=== PATIENT | male | born 1960 | race Caucasian/White ===

== ENCOUNTER → 2018-12-04 10:52 | Outpatient (CLI) | payer MEDICARE, SELFPAY ==
--- NOTE | 2018-12-04 10:56 | MR_ITS ---
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 FINDINGS: No midline shift, mass effect, or intracranial hemorrhage is apparent. There is a gyriform area of intense increased diffusion signal in the left parietal lobe with a smaller area of peripheral gyriform increased diffusion signal in the left occipital lobe. These areas are consistent with areas of acute cortical infarction. There are scattered periventricular and subcortical T2 white matter hyperintensities consistent with ischemic gliotic change from microvascular disease. The cerebellopontine angle, cerebellum, and brainstem have an unremarkable appearance. The pituitary, optic chiasm, corpus callosum, and craniocervical junction have an unremarkable appearance. No mastoid effusion or sinus air-fluid level. 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 Multiple attempts made to contact the referring physician but unsuccessful. Dictated by: Zhao Champagne MD 12/04/2018 14:03 Electronically signed by Zhao Champagne MD in [place] 12/04/2018 14:03
== END ==
PROVIDERS: PCP Internal Medicine Adolescent Medicine; Visit Provider Internal Medicine Adolescent Medicine
DX: R20.2 Paresthesia of skin (principal)
CPT/HCPCS: 70551

== ENCOUNTER 2021-10-31 17:23 | Observation (INO) | payer MEDICARE, SELFPAY ==
[2021-10-31] VITALS (8 sets, daily range): BP systolic 87–133; BP diastolic 64–85; PULSE 87–106; RESP 18–21; TEMP 36.7–36.9; O2SAT 94–98; BMI 32.5; BMI 32.6
--- NOTE | 2021-10-31 17:33 | ECG_ITS ---
APPROVED REPORT Exam: Resting ECG HR:107 bpm ECG Measurements Heart Rate 107 AXES WY 175 P 38 QRSd 181 QRS -21 QT 370 T 114 QTc 432 Conclusion SINUS TACHYCARDIA INDETERMINATE AXIS INTRAVENTRICULAR CONDUCTION DELAY [130+ ms QRS DURATION] ABNORMAL ECG UNCONFIRMED REPORT Electronically signed by : Rusty Estrada MD 11/02/2021 21:30:05
--- NOTE | 2021-10-31 17:44 | PC.NURSE ---
ALLY RICK at bedside.
--- NOTE | 2021-10-31 18:12 | XR_ITS ---
PROCEDURE INFORMATION: Exam: XR Chest Exam date and time: 10/31/21 06:28 PM Age: 61 years old Clinical indication: Pain; Right-sided; Additional info: Right shoulder pain, acs history TECHNIQUE: Imaging protocol: Radiologic exam of the chest. Views: 1 view. COMPARISON: CR CXR1 CHEST-PORTABLE 10/16/15 05:58 AM FINDINGS: Lungs: Unremarkable. No consolidation. Pleural spaces: Unremarkable. No pleural effusion. No pneumothorax. Heart/Mediastinum: Moderate cardiomegaly. Bones/joints: Unremarkable. IMPRESSION: Moderate cardiomegaly.
--- NOTE | 2021-10-31 18:14 | HMH.EDGENADL ---
ED Disposition Clinical Impression: Acute exacerbation of CHF (congestive heart failure) Qualifiers: Heart failure type: unspecified Qualified Code(s): I50.9 - Heart failure, unspecified Disposition: Admitted As Inpatient Condition on Discharge: Good Referrals: Rusty Estrada MD [Primary Care Provider] - - Critical Care Critical Care Time: No Attestation: On 10/31/21, the high probability of a clinically significant, sudden or life threatening deterioration of the following system(s) required my full and direct attention, intervention and personal management. The time I documented below is in addition to time spent performing reported procedures but includes the following listed in this critical care notation. Medical Decision Making - [place] Inquiry Pt receiving controlled substance: No Vital Signs: 10/31/21 17:25 10/31/21 17:47 10/31/21 18:16 Temperature 98.5 F Temperature Source Oral Pulse Rate 98 H 90 Pulse Rate [Left Radial] 106 H Respiratory Rate 18 21 Blood Pressure 133/64 118/72 Blood Pressure [Right Arm] 132/85 Blood Pressure Mean 92 81 Blood Pressure Mean [Right Arm] 100 Blood Pressure Source [Right Arm] Automatic Cuff Blood Pressure Position [Right Arm] Sitting 02 Sat by Pulse Oximetry 96 95 95 Oxygen Delivery Method Room Air 10/31/21 18:48 Temperature Temperature Source Pulse Rate 88 Pulse Rate [Left Radial] Respiratory Rate 19 Blood Pressure 101/79 L Blood Pressure [Right Arm] Blood Pressure Mean 84 Blood Pressure Mean [Right Arm] Blood Pressure Source [Right Arm] Blood Pressure Position [Right Arm] 02 Sat by Pulse Oximetry 95 Oxygen Delivery Method - Lab Data Lab Results 10/31/21 18:35: WBC 10.8, RBC 5.02, Hgb 16.4, Hct 49.9, MCV 99.5 H, MCH 32.6 H, MCHC 32.7, RDW 15.6, Plt Count 254, MPV 8.9, Neut % (Auto) 74.4, Lymph % (Auto) 16.3, Rankin % (Auto) 7.4, Eos % (Auto) 0.8, Baso % (Auto) 1.0, Neut # (Auto) 8.0 H, Lymph # (Auto) 1.8, Rankin # (Auto) 0.8, Eos # (Auto) 0.1, Baso # (Auto) 0.1 10/31/21 18:35: Sodium 134 L, Potassium 3.3 L, Chloride 98, Carbon Dioxide 25, Anion Gap 14.3, BUN 18, Creatinine 1.20, Estimated Creat Clear 91, Estimated GFR 62, Est GFR ( Amer) 74, Glucose 125 H, Calcium 9.4, Total Bilirubin 3.0 H, AST 35, ALT 34, Alkaline Phosphatase 100, Troponin I 0.04 H, NT-Pro-B Natriuret Pep 2860 H, Total Protein 7.7, Albumin 4.3, Globulin 3.4 H, Albumin/Globulin Ratio 1.3 10/31/21 19:04: SARS-CoV-2 (PCR) Not detected, Influenza A Untype (PCR) Not detected, Influenza Type B (PCR) Not detected 10/31/21 19:24: Troponin I 0.04 H Result diagrams: 10/31/21 18:35 10/31/21 18:35 Orders (Tests/Meds): ED MEDICATIONS Generic Name Dose Route Start Last Admin Trade Name Freq PRN Reason Stop Dose Admin Apixaban 5 mg 10/31/21 21:00 Apixaban 5mg Tablet PO 11/30/21 20:59 BID NICOLAS Ticagrelor 90 mg 11/01/21 09:00 Ticagrelor 90mg Tablet PO 12/01/21 08:59 DAILY NICOLAS Discontinued Medications Generic Name Dose Route Start Last Admin Trade Name Freq PRN Reason Stop Dose Admin Acetaminophen 500 mg 10/31/21 18:37 10/31/21 18:55 Acetaminophen 500mg Tab PO 10/31/21 18:38 Not Given ONCE ONE Hydrocodone Bitart/Acetaminophen 1 tab 10/31/21 18:36 10/31/21 18:55 Hydrocodone/Apap 5/325 Mg Tablet PO 10/31/21 18:37 Not Given ONCE ONE Diazepam 2.5 mg 10/31/21 18:12 10/31/21 18:40 Diazepam 5mg Tablet PO 10/31/21 18:13 2.5 mg ONCE ONE Administration Furosemide 60 mg 10/31/21 19:10 10/31/21 19:23 Furosemide 20 Mg/2 Ml Vial IV 10/31/21 19:11 60 mg ONCE ONE Administration Magnesium Sulfate 2 gm in 50 mls @ 50 mls/hr 10/31/21 18:12 10/31/21 18:40 Magnesium Sulfate 2gm/50ml Premix IV 10/31/21 19:11 50 mls/hr ONCE ONE Administration Potassium Chloride 60 meq 10/31/21 19:10 10/31/21 19:23 Potassium Chloride 20meq Tab PO 10/31/21 19:11 60 meq ONCE ONE Administration ORDER
[2021-10-31 18:50] LABS: Alanine Aminotransferase 34 U/L (12-78); Albumin Level 4.3 g/dl (3.5-5.0); Albumin/Globulin Ratio 1.3 (1.1-1.8); Alkaline Phosphatase 100 U/L (38-126); Anion Gap 14.3 mEq/L (5-15); Aspartate Amino Transferase 35 U/L (17-59); Blood Urea Nitrogen 18 mg/dl (9-20); Calcium 9.4 mg/dl (8.4-10.2); Carbon Dioxide 25 mmol/L (22.0-30.0); Chloride 98 mmol/L (98-107); Creatinine Clearance Estimated 91 mL/min (50-200); Estimated Glomerular Filt Rate 62 ml/min (>60); GFR (African American) 74 ML/MIN (>60); Globulin 3.4 g/dL (1.3-3.2); Glucose 125 mg/dl (74-100); Potassium 3.3 mmoL/L (3.5-5.1); Sodium 134 mmol/L (136-145); Total Protein,Serum 7.7 g/dl (6.3-8.2)
[2021-10-31 18:57] LABS: Basophils # 0.1 K/mm3 (0-0.2); Eosinophils # 0.1 K/mm3 (0.0-0.4); Eosinophils % 0.8 % (0.1-12.0); Hematocrit 49.9 % (42.0-52.0); Hemoglobin 16.4 g/dL (14.1-18.0); Lymphocytes # 1.8 K/mm3 (0.7-4.5); Lymphocytes % 16.3 % (10-50); Mean Corpuscular HGB Conc 32.7 g/dL (31.8-35.4); Mean Corpuscular Hemoglobin 32.6 pg (27.0-31.2); Mean Corpuscular Volume 99.5 fl (80-94); Mean Platelet Volume 8.9 fl (7.4-10.4); Monocytes # 0.8 K/mm3 (0.1-1.0); Monocytes % 7.4 % (1.7-9.3); Neutrophils % 74.4 % (37.0-80.0); Platelet Count 254 K/mm3 (142-424); Red Blood Count 5.02 M/mm3 (4.60-6.20); Red Cell Distribution Width 15.6 % (11.5-17.5); White Blood Count 10.8 K/mm3 (4.8-10.8)
[2021-10-31 19:02] LABS: NT Pro Brain Natriuretic Pep. 2860 pg/mL (0-125); Troponin I 0.04 ng/ml (0.00-0.034)
[2021-10-31 19:12] LABS: Coronavirus 19, PCR Not Detected (NotDetected); Influenza A, PCR Not Detected (NotDetected); Influenza B, PCR Not Detected (NotDetected)
[2021-10-31 19:52] LABS: Troponin I 0.04 ng/ml (0.00-0.034)
--- NOTE | 2021-10-31 21:07 | PC.NURSE ---
PT ARRIVED TO FLOOR [facility] W/C FROM ED @ 2106
[2021-11-01] VITALS: BP 110/74; PULSE 80; PULSE 89; RESP 20; TEMP 36.9; O2SAT 93
[2021-11-01 00:53] LABS: Troponin I 0.05 ng/ml (0.00-0.034)
[2021-11-01 04:00] VITALS: BP 91/54; PULSE 85; PULSE 90; RESP 20; TEMP 36.6; O2SAT 94
--- NOTE | 2021-11-01 04:23 | PC.NURSE ---
Pt has not slept at all this shift. He states that he has this problem when he is in the hospital. C/O anxiety upon arrival to floor. notified. New orders received and carried out. VSS. Pt has not c/o any soa. Remains on RA. He is sinus with BBB on telemetry with occasional PVCs. Pt has used urinal or ambulated to BR. Total urine output is 365 ml thus far. Call light within reach. Family at bedside.
[2021-11-01 04:29] VITALS: BMI 34.7
[2021-11-01 06:23] LABS: Anion Gap 13.6 mEq/L (5-15); Blood Urea Nitrogen 19 mg/dl (9-20); Calcium 9.4 mg/dl (8.4-10.2); Carbon Dioxide 24 mmol/L (22.0-30.0); Chloride 100 mmol/L (98-107); Creatinine Clearance Estimated 85 mL/min (50-200); Estimated Glomerular Filt Rate 56 ml/min (>60); GFR (African American) 68 ML/MIN (>60); Glucose 90 mg/dl (74-100); Potassium 3.6 mmoL/L (3.5-5.1); Sodium 134 mmol/L (136-145)
[2021-11-01 06:31] LABS: NT Pro Brain Natriuretic Pep. 2930 pg/mL (0-125)
--- NOTE | 2021-11-01 07:09 | PC.NURSE ---
Critical lab values reported to MD this shift.
--- NOTE | 2021-11-01 07:40 | PC.NURSE ---
As I was getting report on patient it was noted on telemetry that he had a 10 beat run of vtach. Yamil Paris, RN and myself checked on patient. He denied any complaints, was asymptomatic. VS were 107/66, 83 (HR), 17 (R), 95 RA.
[2021-11-01 08:00] VITALS: BP 107/66; PULSE 80; PULSE 83; RESP 17; TEMP 36.7; O2SAT 95
--- NOTE | 2021-11-01 08:20 | PC.NURSE ---
notified md at bedside that patient had one 10 beat run of vtach this morning, pt was asymptomatic on assessment
--- NOTE | 2021-11-01 08:52 | HMH.HPDC ---
General - General Admission date:: 10/31/21 Discharge date: 11/01/21 *Admission Date: 10/31/21 *Chief complaint: Anxiety/dyspnea/arm twitching *History of present illness: 61-year-old male with history of CHF, chronic atrial and ventricular dysrhythmias and chronic anxiety disorder. He has been on Xanax 3 times daily for many years, and has had problems in the past with increasing his dose on his own which we have talked about multiple times in the office. He is following with [facility] and its been recommended to them to get a pacemaker and AICD box placed. He is extremely nervous about this and is yet to make the decision about whether or not to go forward but because of his nerves about this issue he accelerated his dose of Xanax and ran out 3 days ago and knew that he was unable to get early refills from my office. As a result his anxiety has accelerated over the past couple days and his normal tremor and arm paresthesia on the right side that he has had for several months has accelerated. Also became somewhat dyspneic and came to the emergency department. In the ER he was found to be nervous but hemodynamically stable. Had a bit of fluid overload and elevated BNP and admitted overnight for observation and further evaluation. [facility] History I have reviewed the patient's past medical history: Yes Medical History: Reports:: Hyperlipidemia, Hypertension Denies:: Diabetes Mellitus Type 1, Diabetes Mellitus Type 2 *Have you ever received a pneumonia vaccine?: Yes *Have you received a flu vaccine this season?: No Other Surgeries: Yes: Cardiac Catheterization - *Social History Smoking Status: Former smoker Tobacco Type: e-cigarettes # Packs/Day (cigarettes): 0 Alcohol Intake: never *Occupational Status:: disabled *Travel in the last 8 weeks: None Family Hx:: Cancer, Coronary Artery Disease, Diabetes, Heart Attack, Hyperlipidemia, Hypertension, Stroke Review of Systems - Review of Systems Review of systems:: pertinent systems reviewed and negative unless documented below Exam Vital signs and Labs for Last 24 Hours: Temp Pulse Resp BP Pulse Ox 98.0 F 83 17 107/66 L 95 11/01/21 08:00 11/01/21 08:00 11/01/21 08:00 11/01/21 08:00 11/01/21 08:00 Laboratory Results - last 24 hr 10/31/21 18:35: WBC 10.8, RBC 5.02, Hgb 16.4, Hct 49.9, MCV 99.5 H, MCH 32.6 H, MCHC 32.7, RDW 15.6, Plt Count 254, MPV 8.9, Neut % (Auto) 74.4, Lymph % (Auto) 16.3, Hardeman % (Auto) 7.4, Eos % (Auto) 0.8, Baso % (Auto) 1.0, Neut # (Auto) 8.0 H, Lymph # (Auto) 1.8, Hardeman # (Auto) 0.8, Eos # (Auto) 0.1, Baso # (Auto) 0.1 10/31/21 18:35: Sodium 134 L, Potassium 3.3 L, Chloride 98, Carbon Dioxide 25, Anion Gap 14.3, BUN 18, Creatinine 1.20, Estimated Creat Clear 91, Estimated GFR 62, Est GFR ( Amer) 74, Glucose 125 H, Calcium 9.4, Total Bilirubin 3.0 H, AST 35, ALT 34, Alkaline Phosphatase 100, Troponin I 0.04 H, NT-Pro-B Natriuret Pep 2860 H, Total Protein 7.7, Albumin 4.3, Globulin 3.4 H, Albumin/Globulin Ratio 1.3 10/31/21 19:04: SARS-CoV-2 (PCR) Not detected, Influenza A Untype (PCR) Not detected, Influenza Type B (PCR) Not detected 10/31/21 19:24: Troponin I 0.04 H 11/01/21 00:20: Troponin I 0.05 H 11/01/21 05:15: Sodium 134 L, Potassium 3.6, Chloride 100, Carbon Dioxide 24, Anion Gap 13.6, BUN 19, Creatinine 1.30 H, Estimated Creat Clear 85, Estimated GFR 56 L, Est GFR ( Amer) 68, Glucose 90 D, Calcium 9.4, NT-Pro-B Natriuret Pep 2930 H I & O for Last 24 hours: Intake & Output 10/29/21 10/30/21 10/31/21 11/01/21 11:59 11:59 11:59 11:59 Intake Total 360 / 360 Output Total 365 / 365 Balance -5 / -5 Weight 221 lb - Constitutional no acute distress, obese - *Routine HEENT Exam Head: Present: normocephalic Eye: Present: EOMI, PERRL ENT: Present: mucous membranes moist - *Routine Neck Exam Present: supple. Absent: lymphadenopathy - *Routine Respiratory Exam Present: CTA bilaterally - *Routine C
--- NOTE | 2021-11-02 14:43 | CARE MANAGER ---
Called and spoke with patient r/t post discharge status. 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 He forgot to mention to Dr. Estrada that he has a sinus infection . I explained to the patient that if he thought he needed to be seen prior to his scheduled f/u appt on 11/08, that he should call the office and see about getting into see MD earlier. Patient has no complaints or concerns at this time.
== END 2021-11-01 10:45 | disposition home or self-care (01) ==
LOC: ER 20:01 → 2ND 20:12
PROVIDERS: Admitting Provider Internal Medicine Adolescent Medicine; Emergency Provider Emergency Medicine; PCP Internal Medicine Adolescent Medicine; Visit Provider Internal Medicine Adolescent Medicine
DX: I50.9 Heart failure, unspecified (principal); Z79.01 Long term (current) use of anticoagulants; I11.0 Hypertensive heart disease with heart failure; Z79.899 Other long term (current) drug therapy; F17.200 Nicotine dependence, unspecified, uncomplicated; E78.5 Hyperlipidemia, unspecified; I82.5 Chronic embolism and thrombosis of deep veins of lower extremity; Z20.822 Contact with and (suspected) exposure to COVID-19
CPT/HCPCS: G0378; 36415; 71045; 80048; 80053; 83880; 84484; 85025; 93005; 93306; 99285; C9803; J3475; Q9957; U0003; U0005

== ENCOUNTER 2022-02-22 16:01 | Inpatient (IN) | payer MEDICARE, SELFPAY ==
[2022-02-22] VITALS (7 sets, daily range): BP systolic 127–141; BP diastolic 94–99; PULSE 69–111; RESP 16–20; TEMP 36.6–36.7; O2SAT 90–98; BMI 34.0; BMI 33.9
--- NOTE | 2022-02-22 16:00 | ECG_ITS ---
APPROVED REPORT Exam: Resting ECG HR:100 bpm ECG Measurements Heart Rate 100 AXES TN 181 P 12 QRSd 183 QRS -49 QT 443 T 92 QTc 500 Conclusion SINUS TACHYCARDIA WITH OCCASIONAL VENTRICULAR PREMATURE COMPLEXES LEFT ATRIAL ENLARGEMENT [-0.15mV P-WAVE IN V1/V2] LEFT AXIS DEVIATION [QRS AXIS < -30] INTRAVENTRICULAR CONDUCTION DELAY [130+ ms QRS DURATION] ABNORMAL ECG UNCONFIRMED REPORT Electronically signed by : Rusty Estrada MD 02/22/2022 19:52:18
--- NOTE | 2022-02-22 16:13 | XR_ITS ---
PROCEDURE INFORMATION: Exam: XR Chest Exam date and time: 02/22/2022 4:38 PM Age: 61 years old Clinical indication: Shortness of breath; Sternal or substernal pain; Additional info: SOA, chest pain TECHNIQUE: Imaging protocol: Radiologic exam of the chest. Views: 1 view. COMPARISON: CR XR CHEST PORTABLE 10/31/2021 6:28 PM FINDINGS: Lungs: Pulmonary vascular congestion. Added opacity at the right lung base may represent atelectasis or pneumonia. Pleural spaces: Unremarkable. No pleural effusion. No pneumothorax. Heart/Mediastinum: Cardiomegaly. Bones/joints: Unremarkable. IMPRESSION: 1. Cardiomegaly and pulmonary vascular congestion. 2. Possible superimposed right lung base atelectasis versus pneumonia.
[2022-02-22 16:33] LABS: Coronavirus 19, PCR Not Detected (NotDetected); Influenza A, PCR Not Detected (NotDetected); Influenza B, PCR Not Detected (NotDetected)
[2022-02-22 16:37] LABS: Basophils # 0.1 K/mm3 (0-0.2); Basophils % 0.9 % (0.1-2.0); Eosinophils # 0.1 K/mm3 (0.0-0.4); Eosinophils % 0.6 % (0.1-12.0); Hematocrit 51.8 % (42.0-52.0); Hemoglobin 16.8 g/dL (14.1-18.0); Lymphocytes # 1.7 K/mm3 (0.7-4.5); Lymphocytes % 19.1 % (10-50); Mean Corpuscular HGB Conc 32.4 g/dL (31.8-35.4); Mean Corpuscular Hemoglobin 32.2 pg (27.0-31.2); Mean Corpuscular Volume 99.4 fl (80-94); Mean Platelet Volume 9.4 fl (7.4-10.4); Monocytes # 0.6 K/mm3 (0.1-1.0); Monocytes % 6.5 % (1.7-9.3); Neutrophils # 6.6 K/mm3 (1.8-7.8); Neutrophils % 72.8 % (37.0-80.0); Platelet Count 237 K/mm3 (142-424); Red Blood Count 5.21 M/mm3 (4.60-6.20); Red Cell Distribution Width 15.8 % (11.5-17.5)
[2022-02-22 16:41] LABS: Alanine Aminotransferase 40 U/L (12-78); Albumin Level 4.4 g/dl (3.5-5.0); Alkaline Phosphatase 107 U/L (38-126); Anion Gap 18.5 mEq/L (5-15); Aspartate Amino Transferase 38 U/L (17-59); Bilirubin,Direct 1.2 mg/dl (0.0-0.4); Bilirubin,Indirect 2.8 mg/dL (0.0-0.9); Bilirubin,Unconjugated 2.8 mg/dL (0.0-1.1); Blood Urea Nitrogen 16 mg/dl (9-20); Carbon Dioxide 25 mmol/L (22.0-30.0); Chloride 99 mmol/L (98-107); Creatinine Clearance Estimated 57 mL/min (50-200); Estimated Glomerular Filt Rate 34 ml/min (>60); GFR (African American) 41 ML/MIN (>60); Glucose 215 mg/dl (74-100); Sodium 140 mmol/L (136-145); Total Protein,Serum 7.6 g/dl (6.3-8.2)
--- NOTE | 2022-02-22 16:41 | PC.NURSE ---
pt on 3.5L per NC at this time r/t SaO2 83% on RA ALLY RICK notified
[2022-02-22 16:47] LABS: Lactic Acid 3.6 mmol/L (0.7-2.1)
[2022-02-22 16:53] LABS: Troponin I 0.05 ng/ml (0.00-0.034)
[2022-02-22 16:55] LABS: Potassium 2.5 mmoL/L (3.5-5.1)
--- NOTE | 2022-02-22 17:07 | PC.NURSE ---
Pt is sitting up on ED stretcher and states no needs at this time. Family at BS also report no needs. Pt used urinal, UA sent to lab but there is no order in system by MD at this time
--- NOTE | 2022-02-22 17:34 | PC.NURSE ---
ER MD at speaking with patient regarding POC
--- NOTE | 2022-02-22 17:58 | HMH.EDGENADL ---
Discharge Plan Disposition Patient Disposition: Admitted As Inpatient Condition: Fair Clinical Impressions Clinical Impression: Acute exacerbation of CHF (congestive heart failure), Generalized anxiety disorder, Community acquired pneumonia, Hyperbilirubinemia, Acute respiratory failure with hypoxia Discharge ED Provider: Dhaval Tian General Adult HPI General Chief complaint: Shortness of Breath/Dyspnea Stated complaint: CP Time Seen by Provider: 02/22/22 18:00 Mode of Arrival: Ambulatory Source of Information: Patient Limitations: No Limitations Description of Symptoms (Recalled from ER Triage Doc. by RN): Pt reports SOA that began yesterday and has had intermittent chest pain today. Pt denies chest pain at this time. Pt reports HOLLOWAY with any activity. Pt reports has hx of cardiac stents and COPD. Pt reports has also been anxious r/t being out of xanax for 2 days. Pt skin on face is jaundiced in appearance. History of Present Illness HPI narrative: History obtained from patient and . His states he has not been well for about 3 weeks. He has declined more over the past week. He is extremely weak, spending most of his time in bed. No appetite not eating much at all. Very nauseated. He complains of shortness of breath. He has a cough producing yellow sputum. He states that he did not take his Lasix yesterday, but took it today and has been urinating a lot today. Has required 2 urinals thus far in the emergency department. His also states that he is on Xanax [address] Estrada has been trying to wean it and he used to be on 3 pills a day, now is on Monday, but takes it more than prescribed and has run out. He is requesting a dose of Xanax. He has a history of coronary artery disease. His says the last time he had a heart attack in 2019 his heart stopped. He has had [address] Porter in 2 more at [facility]. He wore a LifeVest for 2 years. It was recommended that he have an AICD, but thus far he has declined and has not followed up. He has not seen a pnp in about a year. Related Data Home Medications Medication Instructions Recorded Confirmed albuterol sulfate 90 mcg/actuation 8.5 gm inhalation QID COPD 10/31/21 02/22/22 aerosol inhaler fluticasone furoate 200 200 mcg inhalation DAILY COPD 10/31/21 02/22/22 mcg-vilanterol 25 mcg/dose inhalation powder furosemide 40 mg tablet 40 mg PO DIRECTED Heart failure 10/31/21 02/22/22 lisinopril 5 mg tablet 5 mg PO DAILY Hypertension 10/31/21 02/22/22 metoprolol succinate 100 mg 100 mg PO DAILY Hypertension 10/31/21 02/22/22 tablet,extended release 24 hr pantoprazole 40 mg tablet,delayed 40 mg PO DAILY GERD 10/31/21 02/22/22 release clopidogrel 75 mg tablet 75 mg PO DAILY heart 02/22/22 02/22/22 Previous Rx's Medication Instructions Recorded alprazolam 0.5 mg tablet 0.5 mg PO TIDP PRN Anxiety #90 tabs 11/01/21 Allergies Allergy/AdvReac Type Severity Reaction Status Date / Time No Known Allergies Allergy Unverified 02/28/17 15:17 [facility] Disclaimer: The information contained in this section may have been updated after the patient was seen, as this information can be updated by other users. Social History Smoking Status: Current every day smoker tobacco type: e-cigarettes alcohol intake: never current occupational status: disabled Travel in the last 8 weeks: None ROS Obtained: Yes Systems reviewed as appropriate & no additional complaints except as documented Constitutional Constitutional: Denies fever(s), Denies headache(s), Reports poor appetite and Reports weakness ENT Ears, Nose, Mouth, and Throat: Denies headache(s), Denies nasal discharge and Denies sore throat Cardiovascular Cardiovascular: Denies chest pain and Reports dyspnea on exertion Respiratory Respiratory: Reports shortness of breath, Reports cough, Reports dyspnea on exertion and Reports cough with sputu
--- NOTE | 2022-02-22 18:07 | PC.NURSE ---
ALLY RICK at for patient eval
--- NOTE | 2022-02-22 18:23 | PC.NURSE ---
ALLY RICK at
[2022-02-22 18:33] LABS: NT Pro Brain Natriuretic Pep. 12100 pg/mL (0-125)
--- NOTE | 2022-02-22 18:35 | PC.NURSE ---
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 cormier
--- NOTE | 2022-02-22 18:37 | PC.NURSE ---
ALLY RICK speaking with Dr. Estrada
--- NOTE | 2022-02-22 18:47 | PC.NURSE ---
notified milk house worker of admission
--- NOTE | 2022-02-22 19:26 | PC.NURSE ---
report given to scottrn nikko,rn and maxrn
[2022-02-22 20:15] LABS: Troponin I 0.07 ng/ml (0.00-0.034)
[2022-02-22 20:26] LABS: Reflex Lactic Add Lactic Reflex
--- NOTE | 2022-02-22 20:43 | PC.NURSE ---
PT ARRIVED TO FLOOR VIA WHEELCHAIR AT THIS TIME
[2022-02-22 21:07] LABS: Lactic Acid Follow Up (RFLX 1) 3.2 mmol/L (0.7-2.1)
[2022-02-22 22:50] LABS: Reflex Lactic (2 hrs) Add Lactic Reflex
[2022-02-22 23:34] LABS: Lactic Acid Follow up (RFLX 2) 2.2 mmol/L (0.7-2.1)
[2022-02-23] VITALS (10 sets, daily range): BP systolic 89–125; BP diastolic 54–80; PULSE 55–103; RESP 18–20; TEMP 36.3–36.6; O2SAT 88–97; BMI 33.8
--- NOTE | 2022-02-23 04:13 | PC.NURSE ---
Pt is a 61 year old male admitted with hyperkalemia, chf, pneumonia. Pt has been A/O X 4, is at bedside. Pt's lungs has wheezes exp and ins on right side throughout. Resp labored with exertion Pt wearing 2L 02 per NC Pt has a 20G in LAC saline locked patent. Pt has been educated on plan of care and medications. Encouraged to report any needs to nurse. Bed locked in low position, side rails up x 2, call light in reach.
--- NOTE | 2022-02-23 07:00 | CA_ITS ---
APPROVED REPORT EXAM: Comprehensive 2D, Doppler, and color-flow Echocardiogram Delinquency Prevention Officer: Dawn Olivo CRT Ht: 5 ft 9 in Wt: 230lbs BSA: 2.19 BP: 130/96 mmHg Indications: Congestive Heart Failure, COPD, CAD, 5 stents, wore lifevest 2 years, recommended AICD pt refused, EF 20-20% echo 11/01/21 Echo Enhancing Agent Indication: Endocardial border delineation Agent(s) / Amount(s) Used: Definity 2 cc 2D Dimensions LVOT 2.01 cm (M/F) 1.5-2.5 M-Mode Dimensions RVDd 3.08 cm (0.9-2.6) LA Diam 4.51 cm (1.9-4.0) LVDd 8.11 cm (3.5-5.7) Ao Diam 3.88 cm (2.0-3.7) LVDs 7.67 cm (3.5-5.7) IVSd 1.52 cm (0.6-1.1) PWd 1.03 cm (0.6-1.1) EF (Teich) 11.70% FS 5.40% EDV (Teich) 355.30 mL ESV (Teich) 313.70 mL LV Diastology E Decel Time 160.00 (160-240 msec) E/A Ratio 2.64 Mitral Valve MV E Max Killian. 72.00 (40-130 cm/s) MV A Velocity 27.00 (40-130 cm/s) E/A Ratio 2.64 MV Decel. Time 160.00 (160-240 ms) MV PHT 47.00 ms Pulmonary Valve PV Peak Velocity 118.00 (50-150 cm/s) Tricuspid Valve TR P. Velocity 99.00 cm/s Left Ventricle Technically difficult study because of the patient factors and poor acoustic windows, Definity contrast was utilized to delineate the endocardial surfaces, left atrium is mildly enlarged, left ventricle is dilated, there is severe reduced left ventricular systolic function, estimated ejection fraction 15%, left ventricle is globally hypokinetic, there is no left ventricular thrombus seen, diastolic parameters are inconclusive, Doppler evidence of low cardiac output state. Right Ventricle Right atrium and right ventricle are mildly enlarged with normal contractility. Aortic Valve Aortic valve is minimally thickened and calcified there is no aortic stenosis or aortic insufficiency. Mitral Valve Mitral valve leaflets are minimally thickened, there is mild mitral regurgitation. Tricuspid Valve Tricuspid valve is grossly normal, there is mild tricuspid regurgitation, tricuspid regurgitation jet velocity is inadequate for calculation of the right ventricular systolic pressure. Pulmonic Valve Pulmonic valve is poorly visualized. Great Vessels Aortic root is normal size. Inferior vena cava is poorly visualized. Pericardium No significant pericardial effusion noted. Conclusion 1. Technically very difficult study, Definity contrast was utilized to delineate the endocardial surfaces. 2. Dilated left ventricle, severely this left ventricular systolic function, estimated ejection fraction 15%, left ventricle is globally hypokinetic, diastolic parameters are inconclusive, Doppler evidence of low cardiac output state. 3. Mildly enlarged right ventricle with normal contractility. 4. Mild mitral and tricuspid regurgitation. 5. No significant pericardial effusion noted. 6. Inferior vena cava is poorly visualized. Electronically signed by : Tutu Iraheta MD 02/23/2022 20:13:01
[2022-02-23 07:08] LABS: Chloride 102 mmol/L (98-107); Sodium 139 mmol/L (136-145)
[2022-02-23 07:11] LABS: Anion Gap 12.8 mEq/L (5-15); Blood Urea Nitrogen 13 mg/dl (9-20); Carbon Dioxide 27 mmol/L (22.0-30.0); Creatinine Clearance Estimated 67 mL/min (50-200); Estimated Glomerular Filt Rate 41 ml/min (>60); GFR (African American) 50 ML/MIN (>60)
[2022-02-23 07:12] LABS: Calcium 9.3 mg/dl (8.4-10.2); Glucose 96 mg/dl (74-100)
[2022-02-23 07:21] LABS: Potassium 2.8 mmoL/L (3.5-5.1)
--- NOTE | 2022-02-23 08:13 | HMH.PHAINT1 ---
Pharmacy Intervention Comments: Medication reconciliation completed via chart review and external fill history. -Shanon Desai, PharmD Candidate 2022
--- NOTE | 2022-02-23 08:19 | PC.NURSE ---
reported critical potassium to dr cormier
--- NOTE | 2022-02-23 08:31 | EXP.HP ---
History of Present Illness *Admission Date: 02/22/22 *Reason for visit:: Weakness/fatigue *History of present illness: HPI narrative: History obtained from patient and .? His states he has not been well for about 3 weeks.? He has declined more over the past week.? He is extremely weak, spending most of his time in bed.? No appetite not eating much at all.? Very nauseated.? He complains of shortness of breath.? He has a cough producing yellow sputum.? He states that he did not take his Lasix yesterday, but took it today and has been urinating a lot today.? Has required 2 urinals thus far in the emergency department. His also states that he is on Xanax [address] Estrada has been trying to wean it and he used to be on 3 pills a day, now is on Monday, but takes it more than prescribed and has run out.? He is requesting a dose of Xanax. He has a history of coronary artery disease.? His says the last time he had a heart attack in 2019 his heart stopped.? He has had [address] Porter in 2 more at [facility].? He wore a LifeVest for 2 years.? It was recommended that he have an AICD, but thus far he has declined and has not followed up.? He has not seen a harp maker in about a year. Above note per emergency department physician. Agree with history obtained per Dr. Tian. Patient's notes that he has been ill over the past 3 to 4 weeks. She also notes that he cannot handle Xanax only twice daily. He gets wild. Patient notes that he missed a dose of his diuretics last Monday because he was feeling poorly. He notes that when he took his Lasix in the ER he had a brisk diuresis. ER physician confirmed this when I was talking to him about the admission and noted the aid filled up 3 urinals in the ER. He feels much better this morning. Is able to sit up on the side of the bed and carry on a conversation. He feels much stronger. [facility] Disclaimer: The information contained in this section may have been updated after the patient was seen, as this information can be updated by other users. Medical History (Updated 02/23/22 @ 08:36 by Rusty Estrada MD) Congestive heart failure History of heart attack Family History (Updated 02/22/22 @ 21:44 by Karen Brooks, DELIA) Family history of myocardial infarction Social History Smoking Status: Current every day smoker tobacco type: e-cigarettes alcohol intake: never current occupational status: disabled Travel in the last 8 weeks: None Review of Systems Review of Systems Review of systems:: pertinent systems reviewed and negative unless documented below Constitutional Constitutional: Denies headache(s) and Reports weakness ENT Ears, Nose, Mouth, and Throat: Denies headache(s) *Musculoskeletal Musculoskeletal: Denies numbness *Neurologic Neurologic: Denies headache(s), Denies numbness and Reports weakness Meds Home Medications and Allergies Home Medications Medication Instructions Recorded Confirmed Type albuterol sulfate 90 mcg/actuation 8.5 gm inhalation QID COPD 10/31/21 02/22/22 History aerosol inhaler furosemide 40 mg tablet 40 mg PO DIRECTED Heart failure 10/31/21 02/22/22 History metoprolol succinate 100 mg 100 mg PO DAILY Hypertension 10/31/21 02/22/22 History tablet,extended release 24 hr pantoprazole 40 mg tablet,delayed 40 mg PO DAILY GERD 10/31/21 02/22/22 History release clopidogrel 75 mg tablet 75 mg PO DAILY heart 02/22/22 02/22/22 History alprazolam 1 mg tablet 1 mg PO BIDP PRN Anxiety 02/23/22 02/23/22 History fluticasone furoate 200 1 inh inhalation BID COPD 02/23/22 02/23/22 History mcg-vilanterol 25 mcg/dose inhalation powder (Breo Ellipta) lisinopril 10 mg tablet 10 mg PO DAILY Hypertension 02/23/22 02/23/22 History New Prescriptions to Start Prescriptions: Allergies Allergy/AdvReac Type Severity Reaction Status
--- NOTE | 2022-02-23 10:44 | HMH.PTEV ---
Physical Therapy Evaluation Rehab PT IP Evaluation Start: 02/23/22 08:06 Freq: ONCE Status: Active Protocol: Document 02/23/22 09:00 SAMANTHA (Rec: 02/23/22 10:44 SAMANTHA [id number]) Subjective/History History History 61 yowm adm to [facility] with PNA and CHF. He reports he lives with spouse, 2-3 steps to enter the home, he is generally independent with all mobility and ADLs without AD. Subjective Subjective Currently no c/o . Rehab PT IP Eval Objective Appearance Patient Behavior Appropriate Patient Orientation Person,Place,Time Difficulty following instructions none Speech Pattern Clear Ambulation Patient Able to Ambulate Yes Ambulation Observation IP General Gait Pattern Observation No Deviations/Normal Ambulation Distance (feet) 40 Ambulation Assistive Device None Ambulation Ability Independent Balance Ability to Arise Able, uses arms to help Sitting Balance Steady, safe Standing Balance Narrow stance w/o support Dynamic Sitting Balance Ability Good Dynamic Standing Balance Ability Good Transfers Bed Transfer Ability Independent Chair Transfer Ability Independent Sit to Stand Bed Transfer Ability Independent Sit to Stand Chair Transfer Ability Independent ROM All Extremities PT ROM Status WFL MMT All Extremities PT MMT WFL Abnormal MMT Grade except 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 Rehab PT IP prob,goals,plan Problems Date of Evaluation: 02/23/22 Discharge Plan PT Discharge Plan Pt is currently independent with all mobility which is his baseline. He has no inpatient therapy needs at this time and is appropriate to return home once medically stable. G -code Required No Eval Complexity Eval Charge Codes 03786 - Moderate Complexity PHYSICIAN CERTIFICATION: I certify the specified therapy services for Mele Ortiz are required, authorized, and reviewed every 30 days.
--- NOTE | 2022-02-23 16:36 | PC.NURSE ---
Addendum entered by Noe Zuluaga RN 02/23/22 18:58: Correction Liver ultrasound, not biopsy for tomorrow am. CMP also ordered for am. Original Note: Dr. Estrada ordered liver biopsy, stated ok to do in am. Educated pt on need to be npo at 0000. 40 iv lasix iv x 1 and 60 meq of k given po, per mar. No c/o at this time. VSS at this time. CB in reach and at bedside.
[2022-02-24] VITALS: BP 93/66; PULSE 85; RESP 16; TEMP 37; O2SAT 92
--- NOTE | 2022-02-24 02:59 | PC.NURSE ---
Pt has been resting in bed most of shift with spouse at bedside. Pt has been A/O X 4. Rep even and non labored this morning, Lungs have some rhonchi on right side, Shortness of air on exertion. Pt has deneid any pain, IV is patent and SL.Pt educated on current Plan of care. Bed locked in low position, side rails up x 2, call light in reach.
[2022-02-24 04:00] VITALS: BP 99/73; PULSE 86; RESP 18; TEMP 36.8; O2SAT 95
[2022-02-24 05:00] VITALS: BMI 34.0
[2022-02-24 05:59] VITALS: PULSE 89; PULSE 90; O2SAT 91
[2022-02-24 06:34] LABS: Chloride 103 mmol/L (98-107); Potassium 3.6 mmoL/L (3.5-5.1); Sodium 140 mmol/L (136-145)
[2022-02-24 06:37] LABS: Alanine Aminotransferase 25 U/L (12-78); Albumin Level 3.9 g/dl (3.5-5.0); Albumin/Globulin Ratio 1.4 (1.1-1.8); Alkaline Phosphatase 88 U/L (38-126); Anion Gap 17.6 mEq/L (5-15); Aspartate Amino Transferase 31 U/L (17-59); Bilirubin,Total 2.5 mg/dl (0.2-1.3); Blood Urea Nitrogen 20 mg/dl (9-20); Carbon Dioxide 23 mmol/L (22.0-30.0); Creatinine Clearance Estimated 63 mL/min (50-200); Estimated Glomerular Filt Rate 39 ml/min (>60); GFR (African American) 47 ML/MIN (>60); Globulin 2.8 g/dL (1.3-3.2); Total Protein,Serum 6.7 g/dl (6.3-8.2)
[2022-02-24 06:38] LABS: Calcium 9.6 mg/dl (8.4-10.2); Glucose 103 mg/dl (74-100)
[2022-02-24 08:00] VITALS: BP 103/65; PULSE 100; RESP 20; TEMP 36.6; O2SAT 91
--- NOTE | 2022-02-24 08:26 | EXP.DC.SUM ---
General Admission date:: 02/22/22 Discharge date: 02/24/22 HPI HPI HPI: HPI narrative: History obtained from patient and .? His states he has not been well for about 3 weeks.? He has declined more over the past week.? He is extremely weak, spending most of his time in bed.? No appetite not eating much at all.? Very nauseated.? He complains of shortness of breath.? He has a cough producing yellow sputum.? He states that he did not take his Lasix yesterday, but took it today and has been urinating a lot today.? Has required 2 urinals thus far in the emergency department. His also states that he is on Xanax [address] Estrada has been trying to wean it and he used to be on 3 pills a day, now is on Monday, but takes it more than prescribed and has run out.? He is requesting a dose of Xanax. He has a history of coronary artery disease.? His says the last time he had a heart attack in 2019 his heart stopped.? He has had [address] Porter in 2 more at [facility].? He wore a LifeVest for 2 years.? It was recommended that he have an AICD, but thus far he has declined and has not followed up.? He has not seen a loan review officer in about a year. Above note per emergency department physician. Agree with history obtained per Dr. Tian. Patient's notes that he has been ill over the past 3 to 4 weeks. She also notes that he cannot handle Xanax only twice daily. He gets wild. Patient notes that he missed a dose of his diuretics last Monday because he was feeling poorly. He notes that when he took his Lasix in the ER he had a brisk diuresis. ER physician confirmed this when I was talking to him about the admission and noted the aid filled up 3 urinals in the ER. He feels much better this morning. Is able to sit up on the side of the bed and carry on a conversation. He feels much stronger. Hospital Course Hospital Course Hospital Course: Patient was admitted, placed on IV antibiotics for his COPD/exacerbation/community-acquired pneumonia. Improved nicely from a congestion perspective. His elevated bilirubin was noted to be an isolated phenomenon and improved with diuresis. Liver ultrasound is pending today. I will follow-up the results of the liver ultrasound with him in the office in 4 days. Patient's jaundice is resolved. He has had elevated bilirubin in the past and I wonder about Tram syndrome. CHF is still a major problem for this patient. Echocardiogram revealed persistent severe CHF with ejection fraction of 20%. As noted previously patient has been evaluated by [facility] cardiomyopathy service and has been offered AICD placement but he is declined. He is now rethinking this and wishes to be reevaluated at . We will initiate this reevaluation. I have instructed patient that he must be compliant with his home Lasix therapy on a daily basis. I think he has been missing doses intermittently. Have also added spironolactone, and then we will try to get him in to as soon as possible. He has severe anxiety disorder. He has been taking more Xanax than prescribed, I had previously tried to wean him down to twice daily, given his end-stage cardiomyopathy and limited life expectancy I am not sure this is worth the process over the next several months that it would take to wean him off given his over 30 years of benzodiazepine dependence. We will continue 3 times daily Xanax. Patient's room air saturation was 85%. He will be discharged on 2 L nasal cannula given his stage IV CHF. I will see him in the office on 02/28. I ordered BMP and a CBC before this visit to evaluate his electrolytes on the new diuretic regimen. Exam Data for Last 24 hours Vital signs and Labs for Last 24 Hours: Temp Pulse Resp BP Pulse Ox 97.9 F 100 H 20 103/65 L 91 L 02/24/22 08:00 02/24/22 08:00 02/24/22 08:00 02/24/22 08:00 02/24/22 08:00 Laboratory Results - last 24 hr 02/24/22
--- NOTE | 2022-02-24 08:36 | US_ITS ---
FINAL REPORT CLINICAL HISTORY: elevated bilirubin FINDINGS: Sonographic images of the right upper quadrant were obtained. There is a small right pleural effusion. The pancreas is partially obscured. The liver is fatty infiltrated. There are gallstones with gallbladder wall thickening. There is no evidence of biliary ductal dilatation.The common duct measures 3 mm. Limited images of the right kidney are unremarkable. IMPRESSION: Gallstones with gallbladder wall thickening, cholecystitis not excluded. Fatty infiltration of the liver. Small right pleural effusion. Reviewed, Interpreted and Dictated by German Tam III, MD Transcribed by Aida Caal Authenticated and [facility]
--- NOTE | 2022-02-24 09:07 | PC.NURSE ---
Patients oxygen was 85 room air at rest
[2022-02-24 09:28] VITALS: PULSE 73; PULSE 76
--- NOTE | 2022-02-24 09:36 | PC.NURSE ---
verified with that he did want patient going home on 10mg lisinopril
--- NOTE | 2022-02-24 09:44 | CARE MANAGER ---
This patient will need home oxygen, patient and family chose [facility].Order and demographics faxed.
--- NOTE | 2022-02-24 09:48 | HMH.PHAINT1 ---
Pharmacy Intervention Comments: DISCHARGE MEDICATION COUNSELING PROVIDED. DISCUSSED CHANGE ON THE XANAX FROM TWICE DAILY NEEDED TO THREE TIMES DAILY NEEDED. START SHORT-COURSE LEVAQUIN (ANTIBIOTIC, DAILY, RECOMMEND TAKING WITH FOOD, GI UPSET/N/V/D POSSIBLE, RARE RISK OF TENDON RUPTURE). START SPIRONOLACTONE (POTASSIUM SPARING DIURETIC, WATCH FOR SIGNS OF INCREASED POTASSIUM LEVEL INCLUDING IRREGULAR HEARTBEAT, DIZZINESS, MUSCLE PAIN/WEAKNESS, MAY CAUSE BREAST/CHEST PAIN). PATIENT VERBALIZED NO QUESTIONS AT THIS TIME.
--- NOTE | 2022-02-25 13:21 | CARE MANAGER ---
Patient states he is feeling better. he picked up his medications and is aware of MD appointment next week. He denies questions or concerns. DELIA Holley
== END 2022-02-24 11:20 | disposition home or self-care (01) | DRG 193 ==
LOC: ER 18:51 → 2ND 19:11
PROVIDERS: Admitting Provider Internal Medicine Adolescent Medicine; Emergency Provider Emergency Medicine; PCP Internal Medicine Adolescent Medicine; Visit Provider Internal Medicine Adolescent Medicine
DX: J18.9 Pneumonia, unspecified organism (principal); I50.23 Acute on chronic systolic (congestive) heart failure; J96.01 Acute respiratory failure with hypoxia; J44.1 Chronic obstructive pulmonary disease with (acute) exacerbation; J44.0 Chronic obstructive pulmonary disease with (acute) lower respiratory infection; I50.9 Heart failure, unspecified; F41.1 Generalized anxiety disorder; Z95.5 Presence of coronary angioplasty implant and graft; I25.2 Old myocardial infarction; E87.6 Hypokalemia; Z91.14 Patient's other noncompliance with medication regimen; I25.10 Atherosclerotic heart disease of native coronary artery without angina pectoris; F17.290 Nicotine dependence, other tobacco product, uncomplicated; E80.6 Other disorders of bilirubin metabolism
CPT/HCPCS: 36415; 71045; 76705; 80048; 80053; 80076; 83605; 83880; 84484; 85025; 87040; 93005; 93306; 94640; 97162; 99285; C9803; J0456; J0696; Q9957; U0003; U0005

== ENCOUNTER → 2022-02-28 08:26 | Outpatient (CLI) | payer MEDICARE, SELFPAY ==
[2022-02-28 08:59] LABS: Basophils # 0.1 K/mm3 (0-0.2); Basophils % 1.8 % (0.1-2.0); Eosinophils # 0.1 K/mm3 (0.0-0.4); Eosinophils % 0.8 % (0.1-12.0); Hematocrit 48.4 % (42.0-52.0); Hemoglobin 15.6 g/dL (14.1-18.0); Lymphocytes # 1.5 K/mm3 (0.7-4.5); Lymphocytes % 19.3 % (10-50); Mean Corpuscular HGB Conc 32.1 g/dL (31.8-35.4); Mean Corpuscular Hemoglobin 31.8 pg (27.0-31.2); Mean Platelet Volume 9.9 fl (7.4-10.4); Monocytes # 0.4 K/mm3 (0.1-1.0); Monocytes % 5.9 % (1.7-9.3); Neutrophils # 5.4 K/mm3 (1.8-7.8); Platelet Count 257 K/mm3 (142-424); Red Blood Count 4.89 M/mm3 (4.60-6.20); White Blood Count 7.5 K/mm3 (4.8-10.8)
[2022-02-28 10:06] LABS: Anion Gap 15.8 mEq/L (5-15); Blood Urea Nitrogen 17 mg/dl (9-20); Calcium 9.9 mg/dl (8.4-10.2); Carbon Dioxide 26 mmol/L (22.0-30.0); Chloride 100 mmol/L (98-107); Estimated Glomerular Filt Rate 41 ml/min (>60); GFR (African American) 50 ML/MIN (>60); Glucose 137 mg/dl (74-100); Potassium 3.8 mmoL/L (3.5-5.1); Sodium 138 mmol/L (136-145)
== END ==
PROVIDERS: PCP Internal Medicine Adolescent Medicine; Visit Provider Internal Medicine Adolescent Medicine
DX: I50.20 Unspecified systolic (congestive) heart failure (principal)
CPT/HCPCS: 36415; 80048; 85025

== ENCOUNTER 2022-03-12 14:06 | Inpatient (IN) | payer MEDICARE, SELFPAY ==
[2022-03-12] VITALS (12 sets, daily range): BP systolic 82–112; BP diastolic 50–91; PULSE 74–139; RESP 17–22; TEMP 35.9–37; O2SAT 91–96; BMI 33.2; BMI 34.7
--- NOTE | 2022-03-12 14:18 | ECG_ITS ---
APPROVED REPORT Exam: Resting ECG HR:139 bpm ECG Measurements Heart Rate 139 AXES QRSd 186 QRS 259 QT 343 T 142 QTc 424 Conclusion ATRIAL FLUTTER/TACHYCARDIA WITH RAPID VENTRICULAR RESPONSE INDETERMINATE AXIS INTRAVENTRICULAR CONDUCTION DELAY [130+ ms QRS DURATION] ABNORMAL ECG UNCONFIRMED REPORT Electronically signed by : Rusty Estrada MD 03/15/2022 17:00:46
--- NOTE | 2022-03-12 14:30 | XR_ITS ---
PROCEDURE INFORMATION: Exam: XR Chest Exam date and time: 03/12/2022 2:45 PM Age: 61 years old Clinical indication: Shortness of breath; Additional info: Sob/cp TECHNIQUE: Imaging protocol: Radiologic exam of the chest. Views: 1 view. COMPARISON: CR XR CHEST PORTABLE 02/22/2022 4:38 PM FINDINGS: Lungs: Persistent region of opacification in the right mid lower lung. Findings unchanged and may reflect changes of atelectasis versus consolidation. Pleural spaces: Unremarkable. No pleural effusion. No pneumothorax. Heart/Mediastinum: Exaggeration of the cardiac silhouette secondary to technique and positioning. Bones/joints: Unremarkable. IMPRESSION: Persistent region of opacification in the right mid lower lung. Findings unchanged and may reflect changes of atelectasis versus consolidation.
--- NOTE | 2022-03-12 14:32 | HMH.EDGENADL ---
Discharge Plan Disposition Patient Disposition: Admitted As Inpatient Prescriptions Prescriptions: No Action albuterol sulfate 8.5 GM HFA aerosol inhaler 8.5 gm IH QID pantoprazole 40 MG tablet,delayed release (DR/EC) 40 mg PO DAILY furosemide 40 MG tablet 40 mg PO DAILY Label Comments: takes every other day metoprolol succinate 100 MG tablet extended release 24 hr 100 mg PO DAILY clopidogrel 75 mg tablet 75 mg PO DAILY lisinopril 10 mg tablet 10 mg PO DAILY fluticasone furoate-vilanterol [Breo Ellipta] 200-25 mcg/dose blister with device 1 inh INHALATION BID spironolactone 50 mg tablet 50 mg PO BID Qty: 60 0RF levofloxacin [levofloxacin] 500 mg tablet 500 mg PO DAILY Qty: 7 0RF alprazolam 1 mg tablet 1 mg PO TID PRN (Reason: Anxiety) Qty: 90 0RF Referrals Follow up/Referrals: Rusty Estrada MD [Primary Care Provider] - See instructions Clinical Impressions Clinical Impression: Community acquired pneumonia, Hyperbilirubinemia, Hypokalemia, Atrial flutter, Non-ST elevation (NSTEMI) myocardial infarction Discharge ED Provider: Waylon [facility] HPI General Chief complaint: Shortness of Breath/Dyspnea Stated complaint: low O2 level Time Seen by Provider: 03/12/22 14:29 History of Present Illness HPI narrative: 61-year-old male, past medical history of hypokalemia, systolic heart failure, hyperbilirubinemia, respiratory failure with hypoxia. He was recently admitted and discharged on 1215 from here after being evaluated for COPD exacerbation, community-acquired pneumonia and CHF. He was also noted to have elevated bilirubin which was thought to be isolated phenomenon that improved with diuresis. There is consideration for GilBert syndrome. Echocardiogram was completed which showed severe CHF with ejection fraction of 20% and he previously been referred for AICD placement however had declined. He was discharged with instructions to maintain compliance with diuretic regimen, he was discharged from the hospital with supplemental oxygen which he usually uses at 2.5 L/min. He presents back today with generalized fatigue, cough productive of yellowish sputum, shortness of breath. Denies nausea, vomiting, dark stools, abdominal pain, chest pain. States symptoms have progressively worsened over the past week. Related Data Home Medications Medication Instructions Recorded Confirmed albuterol sulfate 90 mcg/actuation 8.5 gm inhalation QID COPD 10/31/21 02/22/22 aerosol inhaler furosemide 40 mg tablet 40 mg PO DAILY Heart failure 10/31/21 02/23/22 metoprolol succinate 100 mg 100 mg PO DAILY Hypertension 10/31/21 02/22/22 tablet,extended release 24 hr pantoprazole 40 mg tablet,delayed 40 mg PO DAILY acid reflux 10/31/21 02/22/22 release clopidogrel 75 mg tablet 75 mg PO DAILY Heart disease 02/22/22 02/22/22 fluticasone furoate 200 1 inh inhalation BID COPD 02/23/22 02/23/22 mcg-vilanterol 25 mcg/dose inhalation powder (Breo Ellipta) lisinopril 10 mg tablet 10 mg PO DAILY Hypertension 02/23/22 02/23/22 Previous Rx's Medication Instructions Recorded alprazolam 1 mg tablet 1 mg PO TID PRN Anxiety #90 tabs 02/24/22 levofloxacin 500 mg tablet 500 mg PO DAILY #7 tabs 02/24/22 spironolactone 50 mg tablet 50 mg PO BID #60 tabs 02/24/22 Allergies Allergy/AdvReac Type Severity Reaction Status Date / Time No Known Allergies Allergy Unverified 02/28/17 15:17 [facility] Disclaimer: The information contained in this section may have been updated after the patient was seen, as this information can be updated by other users. Medical History Congestive heart failure History of heart attack Family History Other Family history of myocardial infarction Social History Smo
[2022-03-12 14:38] LABS: Coronavirus 19, PCR Not Detected (NotDetected); Influenza A, PCR Not Detected (NotDetected); Influenza B, PCR Not Detected (NotDetected)
[2022-03-12 14:53] LABS: Alanine Aminotransferase 35 U/L (12-78); Albumin Level 4.2 g/dl (3.5-5.0); Albumin/Globulin Ratio 1.4 (1.1-1.8); Alkaline Phosphatase 100 U/L (38-126); Anion Gap 15.2 mEq/L (5-15); Aspartate Amino Transferase 54 U/L (17-59); Bilirubin,Total 2.6 mg/dl (0.2-1.3); Blood Urea Nitrogen 19 mg/dl (9-20); Calcium 9.4 mg/dl (8.4-10.2); Carbon Dioxide 27 mmol/L (22.0-30.0); Chloride 100 mmol/L (98-107); Creatinine Clearance Estimated 66 mL/min (50-200); Estimated Glomerular Filt Rate 41 ml/min (>60); GFR (African American) 50 ML/MIN (>60); Glucose 111 mg/dl (74-100); Magnesium 2.1 mg/dl (1.6-2.3); Potassium 3.2 mmoL/L (3.5-5.1); Sodium 139 mmol/L (136-145); Total Protein,Serum 7.2 g/dl (6.3-8.2)
[2022-03-12 14:54] LABS: Basophils # 0.1 K/mm3 (0-0.2); Eosinophils # 0.1 K/mm3 (0.0-0.4); Eosinophils % 0.8 % (0.1-12.0); Hematocrit 48.9 % (42.0-52.0); Hemoglobin 15.7 g/dL (14.1-18.0); Lymphocytes # 1.8 K/mm3 (0.7-4.5); Lymphocytes % 21.1 % (10-50); Mean Corpuscular HGB Conc 32.1 g/dL (31.8-35.4); Mean Corpuscular Hemoglobin 31.9 pg (27.0-31.2); Mean Corpuscular Volume 99.5 fl (80-94); Mean Platelet Volume 8.9 fl (7.4-10.4); Monocytes # 0.6 K/mm3 (0.1-1.0); Monocytes % 7.1 % (1.7-9.3); Neutrophils # 5.9 K/mm3 (1.8-7.8); Platelet Count 288 K/mm3 (142-424); Red Blood Count 4.92 M/mm3 (4.60-6.20); Red Cell Distribution Width 17.3 % (11.5-17.5); White Blood Count 8.4 K/mm3 (4.8-10.8)
[2022-03-12 14:57] LABS: D-Dimer 2.32 ug/mL (0.0-0.5); Lactic Acid 2.6 mmol/L (0.7-2.1)
[2022-03-12 15:03] LABS: NT Pro Brain Natriuretic Pep. 16700 pg/mL (0-125)
[2022-03-12 15:44] LABS: Troponin I 0.13 ng/ml (0.00-0.034)
[2022-03-12 15:58] LABS: Microscopic, Urine URINE MICROSCOPIC (MICROSCOPIC)
[2022-03-12 16:00] LABS: Appearance,Urine CLEAR (Clear); Blood, Urine Negative (Negative); Color,Urine YELLOW (Yellow); Glucose,Urine (UA) Negative (Negative); Ketones,Urine Negative (Negative); Leukocyte Esterase,Urine Negative (Negative); Nitrate,Urine Negative (Negative); Protein,Urine 2+ (Negative); Specific Gravity, Urine 1.025 (1.005-1.030)
--- NOTE | 2022-03-12 16:01 | PC.NURSE ---
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
[2022-03-12 16:09] LABS: Bilirubin,Urine 1+ (Negative)
[2022-03-12 16:17] LABS: Squamous Epithelial Cell,Urine Occasional #/hpf (0-5); WBC,Urine Occasional #/hpf (0-3)
--- NOTE | 2022-03-12 16:22 | PC.NURSE ---
spoke with pharmacy who states abx ordered is not compatible with dilt drip. new iv established; 20 right wrist
--- NOTE | 2022-03-12 17:27 | PC.NURSE ---
report called to lizzy guerrier
--- NOTE | 2022-03-12 17:52 | PC.NURSE ---
Pt arrived to the floor at this time
--- NOTE | 2022-03-12 18:07 | EXP.HP ---
History of Present Illness *Admission Date: 03/12/22 *Reason for visit:: shortness of breath, weakness *History of present illness: Mr. Ortiz is a 61-year-old male with past medical history of systolic heart failure (EF 20 to 25% on echo 11/01), chronic hypoxic respiratory failure, CKD, who presented to the ER with worsening shortness of breath and fatigue for the past few weeks. Of note, he had a similar presentation 2 weeks ago. States he has not felt well since getting home. Reports mixed compliance with his diuretic regimen. Also complains of cough mildly productive for yellow sputum. Stable oxygen requirement (2.5 L). Denies fever, but states that he has been cold and requesting blankets. Denies any vomiting, melena, abdominal pain, chest pain. Has had some intermittent nausea. On initial evaluation in the ER, patient found to be in a flutter with heart rate in the 130s. Labs concerning for mild elevation in troponin, elevation in creatinine from baseline, severely elevated BNP, and low potassium. Patient's chest imaging concerning for volume overload and persistent right middle lobe atelectasis versus airspace density. Initiated on diltiazem drip in the ER with improvement in his heart rate. Medicine consulted for admission and further management. On my interview, patient appears very weak. Reports known history of heart failure, has been trying to get set up at for possible AICD. Has not been comfortable with having the device placed previously. Knows that he has severe heart failure. Alert and interactive. Cardiac history: Reports previous stent placement and intervention by Dr. Porter in [place]. Known LAD disease. Previously recommended CABG, patient declined to pursue. In need of AICD/pacemaker, has deferred for several years; previously wore a LifeVest for 2 years per 's report Echo from 02/23/2022 Conclusion 1.? Technically very difficult study, Definity contrast was utilized to delineate the endocardial surfaces. 2.? Dilated left ventricle, severely this left ventricular systolic function, estimated ejection fraction 15%, left ventricle is globally hypokinetic, diastolic parameters are inconclusive, Doppler evidence of low cardiac output state. 3.? Mildly enlarged right ventricle with normal contractility. 4.? Mild mitral and tricuspid regurgitation. 5.? No significant pericardial effusion noted. 6.? Inferior vena cava is poorly visualized. PFSH PFSH Disclaimer: The information contained in this section may have been updated after the patient was seen, as this information can be updated by other users. Medical History (Updated 03/12/22 @ 20:31 by Israel Cantu MD) Asthma Congestive heart failure COPD (chronic obstructive pulmonary disease) History of heart attack Family History Family history of myocardial infarction Social History (Updated 03/12/22 @ 20:02 by Kaylynn Warren RN) Smoking Status: Former smoker alcohol intake: never current occupational status: disabled Travel in the last 8 weeks: None Review of Systems Review of Systems Review of systems (narrative): 14 point review of systems performed, pertinent positives and negatives as per HPI *Neurologic Neurologic: Reports system reviewed and no additional complaints, except as documented Meds Home Medications and Allergies Home Medications Medication Instructions Recorded Confirmed Type albuterol sulfate 90 mcg/actuation 8.5 gm inhalation QID COPD 10/31/21 03/12/22 History aerosol inhaler furosemide 40 mg tablet 40 mg PO DAILY Heart failure 10/31/21 03/12/22 History metoprolol succinate 100 mg 100 mg PO DAILY Hypertension 10/31/21 03/12/22 History tablet,extended release 24 hr pantoprazole 40 mg tablet,delayed 40 mg PO DAILY acid reflux 10/31/21 03/12/22 History release clopidogrel 75 mg tablet 75 mg PO DAILY Heart disease 02/22/22 03/12/22 History fluticas
[2022-03-12 18:33] LABS: Reflex Lactic Add Lactic Reflex
[2022-03-12 19:11] LABS: Troponin I 0.19 ng/ml (0.00-0.034)
[2022-03-12 19:28] LABS: Lactic Acid Follow Up (RFLX 1) 3.1 mmol/L (0.7-2.1)
[2022-03-12 20:35] LABS: Reflex Lactic (2 hrs) Add Lactic Reflex
[2022-03-12 21:51] LABS: Lactic Acid Follow up (RFLX 2) 2.8 mmol/L (0.7-2.1)
[2022-03-12 22:23] LABS: Troponin I 0.25 ng/ml (0.00-0.034)
--- NOTE | 2022-03-12 22:30 | PC.NURSE ---
changed pt's sat probe, pt satting 89% on 2LNC, increased to 3LNC and sats 92%; notified RT Will that pt requested neb treatment, RT to come to bedside
--- NOTE | 2022-03-12 23:44 | P.CONPHA_ITS ---
Pharmacy Intervention Comments: HOME MEDICATION LIST VERIFIED USING LIST FROM [facility]
--- NOTE | 2022-03-12 23:44 | HMH.PHAINT1 ---
Pharmacy Intervention Comments: HOME MEDICATION LIST VERIFIED USING LIST FROM [facility]
[2022-03-13] VITALS (18 sets, daily range): BP systolic 90–131; BP diastolic 42–88; PULSE 90–140; RESP 20–24; TEMP 36.1–37.3; O2SAT 90–96; BMI 35.4
--- NOTE | 2022-03-13 | CA_ITS ---
APPROVED REPORT EXAM: Comprehensive 2D, Doppler, and color-flow Echocardiogram Data Integration Architect: Day Benitez RT(R) Ht: 5 ft 9 in Wt: 239lbs BSA: 2.23 BP: 101/77 mmHg Indications: CHF, SOB, COPD, CAD, hx OR, Aflutter Procedure After obtaining informed consent, patient underwent transesophageal echo in the [facility]. Type of Sedation : Conscious Sedation Transesophageal probe was inserted and advanced into esophagus without difficulty by Dr. Hernan Porter. Echo enhancement indication: R/O Thrombus. The ELIJAH was performed without complications. Synchronized Cardioversion attempted: Successful Throughout the procedure, the blood pressure, pulse oximetry, cardiac rhythm, and rate were monitored. The patient tolerated the procedure without adverse effects. Recovery from conscious sedation was uneventful and vital signs were stable. Atria No thrombus is visualized in the left atrium or appendage. Electronically signed by : Mario Porter MD 03/15/2022 15:30:42
--- NOTE | 2022-03-13 01:51 | ECG_ITS ---
APPROVED REPORT Exam: Resting ECG HR:159 bpm ECG Measurements Heart Rate 159 AXES QRSd 173 QRS -74 QT 305 T 109 QTc 394 Conclusion ATRIAL FIBRILLATION WITH RAPID VENTRICULAR RESPONSE WITH ABERRANT CONDUCTION OR VENTRICULAR PREMATURE COMPLEXES LEFT AXIS DEVIATION [QRS AXIS < -30] RIGHT BUNDLE BRANCH BLOCK [120+ ms QRS DURATION, UPRIGHT V1, 40+ ms S IN I/aVL/V4/V5/V6] CRITICAL TEST RESULT UNCONFIRMED REPORT Electronically signed by : Rusty Estrada MD 03/15/2022 16:57:59
--- NOTE | 2022-03-13 02:35 | PC.NURSE ---
notified tico garcía of pt's continued tachycardia after first dose metoprolol and hypotension with milrinone drip being started and that rhythm is becoming more regular and qrs is wide, TICO coming to bedside to assess pt
--- NOTE | 2022-03-13 03:00 | ECG_ITS ---
APPROVED REPORT Exam: Resting ECG HR:125 bpm ECG Measurements Heart Rate 125 AXES QRSd 178 QRS -52 QT 349 T 128 QTc 423 Conclusion ATRIAL FLUTTER/TACHYCARDIA WITH RAPID VENTRICULAR RESPONSE LEFT AXIS DEVIATION [QRS AXIS < -30] INTRAVENTRICULAR CONDUCTION DELAY [130+ ms QRS DURATION] ABNORMAL ECG UNCONFIRMED REPORT Electronically signed by : Rusty Estrada MD 03/13/2022 22:22:01
[2022-03-13 07:46] LABS: Basophils # 0.1 K/mm3 (0-0.2); Basophils % 1.3 % (0.1-2.0); Eosinophils # 0.1 K/mm3 (0.0-0.4); Eosinophils % 0.7 % (0.1-12.0); Hematocrit 46.6 % (42.0-52.0); Hemoglobin 14.9 g/dL (14.1-18.0); Lymphocytes # 1.9 K/mm3 (0.7-4.5); Lymphocytes % 24.4 % (10-50); Mean Corpuscular Hemoglobin 31.7 pg (27.0-31.2); Monocytes # 0.6 K/mm3 (0.1-1.0); Monocytes % 7.4 % (1.7-9.3); Neutrophils # 5.1 K/mm3 (1.8-7.8); Neutrophils % 66.2 % (37.0-80.0); Platelet Count 256 K/mm3 (142-424); Red Cell Distribution Width 17.4 % (11.5-17.5); White Blood Count 7.6 K/mm3 (4.8-10.8)
--- NOTE | 2022-03-13 07:50 | EXP.ACUTE.PN ---
Subjective *Date: 03/13/22 *Time: 16:55 Interval history: Patient is ill-appearing this morning. Mild dyspnea. Saturations appropriate on 3 L nasal cannula oxygen. Blood pressure this morning with systolics 90-110. Heart rate remains tachycardic in the 120-130 range. Denies nausea. Complaining of anxiety. at bedside. Attempted diuresis overnight with minimal response. Kidney function stable this morning, discussed reattempting today. Patient alert and oriented. Medical Exam Vital signs and Labs for Last 24 Hours: Vital Signs Temp Pulse Pulse Resp BP BP Pulse Ox 03/13/22 06:00 137 H 22 111/86 92 L 03/13/22 04:00 137 H 03/13/22 04:00 96.9 F L 03/13/22 00:00 113 H 03/13/22 04:00 137 H 23 103/77 L 95 03/13/22 02:00 124 H 21 91/74 L 90 L 03/13/22 00:00 97.0 F L 108 H 20 130/42 L 93 L 03/12/22 20:00 93 L 03/12/22 21:00 85 19 93/50 L 93 L 03/12/22 22:00 88 20 99/54 L 91 L 03/12/22 20:00 96.6 F L 76 17 82/52 L 96 03/12/22 18:00 76 93 L 03/12/22 18:24 97.5 F L 77 22 95/63 L 93 L 03/12/22 17:50 98.5 F 76 20 101/77 L 03/12/22 16:30 79 20 104/77 L 93 L 03/12/22 16:01 74 21 101/77 L 94 L 03/12/22 15:32 82 22 112/91 H 94 L 03/12/22 15:00 138 H 20 107/82 L 96 03/12/22 14:30 139 H 21 112/84 95 03/12/22 14:31 98.6 F 139 H 21 111/86 92 L Intake and Output 03/12/22 03/12/22 03/13/22 15:59 23:59 07:59 Intake Total 0 / 0 Output Total 450 / 450 Balance -450 / -450 Intake: Intake, Oral Amount 0 / 0 Output: Output, Urine Amount 450 / 450 Other: Number of Unmeasured Voids 0 Weight 102.058 kg 106.793 kg 108.522 kg Patient Weight 03/13/22 23:59 Weight 108.522 kg Laboratory Results - last 24 hr 03/12/22 14:21: WBC 8.4, RBC 4.92, Hgb 15.7, Hct 48.9, MCV 99.5 H, MCH 31.9 H, MCHC 32.1, RDW 17.3, Plt Count 288, MPV 8.9, Neut % (Auto) 70.0, Lymph % (Auto) 21.1, Miller % (Auto) 7.1, Eos % (Auto) 0.8, Baso % (Auto) 1.0, Neut # (Auto) 5.9, Lymph # (Auto) 1.8, Miller # (Auto) 0.6, Eos # (Auto) 0.1, Baso # (Auto) 0.1 03/12/22 14:21: D-Dimer 2.32 H 03/12/22 14:21: Sodium 139, Potassium 3.2 L, Chloride 100, Carbon Dioxide 27, Anion Gap 15.2 H, BUN 19, Creatinine 1.70 H, Estimated Creat Clear 66, Estimated GFR 41 L, Est GFR ( Amer) 50 L, Glucose 111 H, Calcium 9.4, Magnesium 2.1, Total Bilirubin 2.6 H, AST 54, ALT 35, Alkaline Phosphatase 100, Troponin I 0.13 H, NT-Pro-B Natriuret Pep 83475 H, Total Protein 7.2, Albumin 4.2, Globulin 3.0, Albumin/Globulin Ratio 1.4 03/12/22 14:21: Lactate 2.6 H 03/12/22 14:21: SARS-CoV-2 (PCR) Not detected, Influenza A Untype (PCR) Not detected, Influenza Type B (PCR) Not detected 03/12/22 14:27: Blood Type AB Positive, Antibody Screen Negative 03/12/22 15:45: Urine Color Yellow, Urine Appearance Clear, Urine pH 6.0, Ur Specific [place] 1.025, Urine Protein 2+, Urine Glucose (UA) Negative, Urine Ketones Negative, Urine Blood Negative, Urine Nitrate Negative, Urine Bilirubin 1+ A, Urine Urobilinogen 1.0, Ur Leukocyte Esterase Negative, Urine WBC Occasional, Ur Squamous Epith Cells Occasional, Hyaline Casts 3-5 03/12/22 17:30: Troponin I 0.19 H 03/12/22 19:03: Lactate 3.1 H 03/12/22 21:05: Troponin I 0.25 H 03/12/22 21:05: Lactate 2.8 H 03/13/22 07:11: WBC 7.6, RBC 4.70, Hgb 14.9, Hct 46.6, MCV 99.0 H, MCH 31.7 H, MCHC 32.0, RDW 17.4, Plt Count 256, MPV 9.0, Neut % (Auto) 66.2, Lymph % (Auto) 24.4, Miller % (Auto) 7.4, Eos % (Auto) 0.7, Baso % (Auto) 1.3, Neut # (Auto) 5.1, Lymph # (Auto) 1.9, Miller # (Auto) 0.6, Eos # (Auto) 0.1, Baso # (Auto) 0.1 I & O for Labs for Last 24 Hours: Intake & Output 03/10/22 03/11/22 03/12/22 03/13/22 23:59 23:59 23:59 23:59 Intake Total 0 / 0 Output Total 450 / 450 Balance -450 / -450 Weight 106.793 kg 108.522 kg Constitutional: Present moderate distress, obese and chronically il
[2022-03-13 07:51] LABS: Alanine Aminotransferase 203 U/L (12-78); Albumin Level 3.9 g/dl (3.5-5.0); Albumin/Globulin Ratio 1.3 (1.1-1.8); Alkaline Phosphatase 104 U/L (38-126); Anion Gap 13.8 mEq/L (5-15); Aspartate Amino Transferase 454 U/L (17-59); Bilirubin,Total 3.9 mg/dl (0.2-1.3); Blood Urea Nitrogen 23 mg/dl (9-20); Calcium 9.2 mg/dl (8.4-10.2); Carbon Dioxide 27 mmol/L (22.0-30.0); Chloride 97 mmol/L (98-107); Creatinine Clearance Estimated 66 mL/min (50-200); Estimated Glomerular Filt Rate 39 ml/min (>60); GFR (African American) 47 ML/MIN (>60); Glucose 87 mg/dl (74-100); Potassium 3.8 mmoL/L (3.5-5.1); Sodium 134 mmol/L (136-145); Total Protein,Serum 6.9 g/dl (6.3-8.2)
--- NOTE | 2022-03-13 11:42 | EXP.PHA.CONS ---
Pharmacy Consult Date: 03/13/22 Time: 11:42 Referring provider: TRINH Reason for Consult:: PHARMACY CONSULTED TO MANAGE VANCOMYCIN THERAPY Allergies Allergy/AdvReac Type Severity Reaction Status Date / Time No Known Allergies Allergy Verified 03/12/22 18:21 Home Medications Medication Instructions Recorded Confirmed Type albuterol sulfate 90 mcg/actuation 1 puff inhalation QID PRN 10/31/21 03/12/22 History aerosol inhaler Shortness Of Breath furosemide 40 mg tablet 40 mg PO DAILY Heart failure 10/31/21 03/12/22 History metoprolol succinate 100 mg 100 mg PO DAILY Hypertension 10/31/21 03/12/22 History tablet,extended release 24 hr pantoprazole 40 mg tablet,delayed 40 mg PO DAILY acid reflux 10/31/21 03/12/22 History release clopidogrel 75 mg tablet 75 mg PO DAILY Heart disease 02/22/22 03/12/22 History fluticasone furoate 200 1 inh inhalation BID COPD 02/23/22 03/12/22 History mcg-vilanterol 25 mcg/dose inhalation powder (Breo Ellipta) lisinopril 10 mg tablet 10 mg PO DAILY Hypertension 02/23/22 03/12/22 History alprazolam 1 mg tablet 1 mg PO TID PRN Anxiety #90 tabs 02/24/22 03/12/22 Rx spironolactone 50 mg tablet 50 mg PO BID DIURETIC 03/12/22 03/12/22 History New Prescriptions to Start Prescriptions: Height: 1.75 m Weight: 108.522 kg Laboratory Results:: Laboratory Results - last 24 hr 03/12/22 14:21: WBC 8.4, RBC 4.92, Hgb 15.7, Hct 48.9, MCV 99.5 H, MCH 31.9 H, MCHC 32.1, RDW 17.3, Plt Count 288, MPV 8.9, Neut % (Auto) 70.0, Lymph % (Auto) 21.1, [place] % (Auto) 7.1, Eos % (Auto) 0.8, Baso % (Auto) 1.0, Neut # (Auto) 5.9, Lymph # (Auto) 1.8, [place] # (Auto) 0.6, Eos # (Auto) 0.1, Baso # (Auto) 0.1 03/12/22 14:21: D-Dimer 2.32 H 03/12/22 14:21: Sodium 139, Potassium 3.2 L, Chloride 100, Carbon Dioxide 27, Anion Gap 15.2 H, BUN 19, Creatinine 1.70 H, Estimated Creat Clear 66, Estimated GFR 41 L, Est GFR ( Amer) 50 L, Glucose 111 H, Calcium 9.4, Magnesium 2.1, Total Bilirubin 2.6 H, AST 54, ALT 35, Alkaline Phosphatase 100, Troponin I 0.13 H, NT-Pro-B Natriuret Pep 97364 H, Total Protein 7.2, Albumin 4.2, Globulin 3.0, Albumin/Globulin Ratio 1.4 03/12/22 14:21: Lactate 2.6 H 03/12/22 14:21: SARS-CoV-2 (PCR) Not detected, Influenza A Untype (PCR) Not detected, Influenza Type B (PCR) Not detected 03/12/22 14:27: Blood Type AB Positive, Antibody Screen Negative 03/12/22 15:45: Urine Color Yellow, Urine Appearance Clear, Urine pH 6.0, Ur Specific [place] 1.025, Urine Protein 2+, Urine Glucose (UA) Negative, Urine Ketones Negative, Urine Blood Negative, Urine Nitrate Negative, Urine Bilirubin 1+ A, Urine Urobilinogen 1.0, Ur Leukocyte Esterase Negative, Urine WBC Occasional, Ur Squamous Epith Cells Occasional, Hyaline Casts 3-5 03/12/22 17:30: Troponin I 0.19 H 03/12/22 19:03: Lactate 3.1 H 03/12/22 21:05: Troponin I 0.25 H 03/12/22 21:05: Lactate 2.8 H 03/13/22 07:11: WBC 7.6, RBC 4.70, Hgb 14.9, Hct 46.6, MCV 99.0 H, MCH 31.7 H, MCHC 32.0, RDW 17.4, Plt Count 256, MPV 9.0, Neut % (Auto) 66.2, Lymph % (Auto) 24.4, [place] % (Auto) 7.4, Eos % (Auto) 0.7, Baso % (Auto) 1.3, Neut # (Auto) 5.1, Lymph # (Auto) 1.9, [place] # (Auto) 0.6, Eos # (Auto) 0.1, Baso # (Auto) 0.1 03/13/22 07:11: Sodium 134 L, Potassium 3.8, Chloride 97 L, Carbon Dioxide 27, Anion Gap 13.8, BUN 23 H, Creatinine 1.80 H, Estimated Creat Clear 66, Estimated GFR 39 L, Est GFR ( Amer) 47 L, Glucose 87 D, Calcium 9.2, Magnesium 2.0, Total Bilirubin 3.9 H, AST 454 H* D, ALT 203 H D, Alkaline Phosphatase 104, Total Protein 6.9, Albumin 3.9, Globulin 3.0, Albumin/Globulin Ratio 1.3 Medical History: Medical History (Updated 03/12/22 @ 20:31 by Israel Cantu MD) Asthma Congestive heart failure COPD (chronic obstructive pulmonary disease) History of heart attack Assessment and Plan Assessment and plan all Dx Assessment and Plan for all problems:: PT RECEIVED VANCOMYCIN 1500MG ONCE OVERNIGHT. WILL CONTINUE VANCOMYCIN 1750MG (~15MG/KG) EVERY 2
[2022-03-13 14:54] LABS: ABG Base Excess -11.3 mmol/L (-2.4-2.3); ABG HCO3 14.3 mmhg (22.0-26.0); ABG Oxygen Saturation 94 % (90-100); ABG PCO2 26.8 mmhg (35.0-45.0); ABG PH 7.35 mmol/L (7.35-7.45); ABG PO2 76.4 mmhg (80-100); ABG TCO2 15.2 mmhg (23-27)
[2022-03-13 14:56] LABS: Allen's Test Patient Unable; Oxygen 4 L NC %; Source Left Radial
--- NOTE | 2022-03-13 15:25 | SUR.OPER ---
Patient cardioverted to sinus rhythm 8033
--- NOTE | 2022-03-13 15:43 | PC.NURSE ---
1411 - notified by Dr Porter to page in aquatic life laborer and echo 1412 - mixer operator notified to page aquatic life laborer 1412 - Ana returned call 1413 - Omid returned call 1413 - Colleen returned call 1414 - notified respiratory to page echo 1428 - Day from echo returned call 1440 - Anesthesia paged per aquatic life laborer request 1441 - Nhan returned call
[2022-03-13 18:34] LABS: Chloride 94 mmol/L (98-107); Sodium 134 mmol/L (136-145)
[2022-03-13 18:35] LABS: Potassium 4.3 mmoL/L (3.5-5.1)
[2022-03-13 18:37] LABS: Ammonia 45 umol/L (9-30)
[2022-03-13 18:38] LABS: Anion Gap 24.3 mEq/L (5-15); Blood Urea Nitrogen 26 mg/dl (9-20); Carbon Dioxide 20 mmol/L (22.0-30.0); Creatinine Clearance Estimated 48 mL/min (50-200); Estimated Glomerular Filt Rate 26 ml/min (>60); GFR (African American) 32 ML/MIN (>60); Glucose 62 mg/dl (74-100)
[2022-03-13 18:59] LABS: Basophils # 0.1 K/mm3 (0-0.2); Basophils % 0.5 % (0.1-2.0); Eosinophils % 0.1 % (0.1-12.0); Hematocrit 46.4 % (42.0-52.0); Hemoglobin 14.8 g/dL (14.1-18.0); Lymphocytes # 0.9 K/mm3 (0.7-4.5); Lymphocytes % 6.8 % (10-50); Mean Corpuscular HGB Conc 31.8 g/dL (31.8-35.4); Mean Corpuscular Hemoglobin 31.8 pg (27.0-31.2); Mean Platelet Volume 9.3 fl (7.4-10.4); Monocytes # 0.8 K/mm3 (0.1-1.0); Monocytes % 5.5 % (1.7-9.3); Neutrophils # 11.9 K/mm3 (1.8-7.8); Neutrophils % 87.2 % (37.0-80.0); Platelet Count 263 K/mm3 (142-424); Red Blood Count 4.64 M/mm3 (4.60-6.20); Red Cell Distribution Width 17.4 % (11.5-17.5); White Blood Count 13.6 K/mm3 (4.8-10.8)
[2022-03-13 19:01] LABS: MANUAL DIFFERENTIAL MANUAL DIFFERENTIAL (MANUAL DIFF)
[2022-03-13 21:38] LABS: Lymphocytes % 9 % (10-50); Monocytes % 2 % (2-9); Neutrophils % 89 % (42-76); Total Cells Counted 100
[2022-03-13 21:40] LABS: Macrocytosis 1+; Platelet Estimate Normal
--- NOTE | 2022-03-13 23:00 | ECG_ITS ---
APPROVED REPORT Exam: Resting ECG HR:102 bpm ECG Measurements Heart Rate 102 AXES NV 178 P 29 QRSd 180 QRS -66 QT 397 T 114 QTc 456 Conclusion SINUS TACHYCARDIA POSSIBLE LEFT ATRIAL ENLARGEMENT [-0.1mV P-WAVE IN V1/V2] LEFT AXIS DEVIATION [QRS AXIS < -30] INTRAVENTRICULAR CONDUCTION DELAY [130+ ms QRS DURATION] ABNORMAL ECG UNCONFIRMED REPORT Electronically signed by : Rusty Estrada MD 03/14/2022 20:02:59
[2022-03-13 23:01] LABS: ABG Base Excess -8.7 mmol/L (-2.4-2.3); ABG HCO3 17.4 mmhg (22.0-26.0); ABG Oxygen Saturation 95 % (90-100); ABG PCO2 34.4 mmhg (35.0-45.0); ABG PH 7.32 mmol/L (7.35-7.45); ABG PO2 83.2 mmhg (80-100); ABG TCO2 18.5 mmhg (23-27)
[2022-03-13 23:02] LABS: Allen's Test Y; Oxygen 50 VM %; Source Right Radial
[2022-03-14] VITALS (39 sets, daily range): BP systolic 72–142; BP diastolic 47–79; PULSE 80–120; RESP 15–24; TEMP 36.5–36.9; O2SAT 86–99; BMI 35.2; BMI 34.9
--- NOTE | 2022-03-14 01:23 | CA_ITS ---
FINAL REPORT CLINICAL HISTORY: LE EDEMA,CARDIOGENIC SHOCK FINDINGS: Color Doppler, duplex Doppler and compression sonography of the bilateral lower extremities was performed. There is no evidence of deep venous thrombosis from the level of the groin to the calf. The deep veins are patent and compressible. IMPRESSION: No evidence of deep venous thrombosis bilateral lower extremities. Reviewed, Interpreted and Dictated by Jeffrey Garza MD Transcribed by Aida Caal Authenticated and [facility]
--- NOTE | 2022-03-14 05:15 | PC.NURSE ---
Pt has slept well the later part of this shift. Denies any discomfort at this time. Pt was placed on 50% venti mask early in shift after desats in upper 80s. German RICK consulted. New orders received and carried out. VS currently stable. Pt remains on Levophed gtt @ 3 mcg/min. Milrinone @ 0.2 mcg/kg/min. Amiodarone @ 0.5 mg/min. To be Discontinued @ 0940 AM. F/C draining to bedside with dark yellow to elodia urine. Sediment noted. No BM. Call light within reach. at bedside.
[2022-03-14 06:11] LABS: Basophils # 0.1 K/mm3 (0-0.2); Basophils % 0.5 % (0.1-2.0); Eosinophils % 0.2 % (0.1-12.0); Hematocrit 42.2 % (42.0-52.0); Hemoglobin 14.1 g/dL (14.1-18.0); Lymphocytes # 1.2 K/mm3 (0.7-4.5); Lymphocytes % 9.3 % (10-50); Mean Corpuscular HGB Conc 33.3 g/dL (31.8-35.4); Mean Corpuscular Hemoglobin 32.4 pg (27.0-31.2); Mean Corpuscular Volume 97.1 fl (80-94); Monocytes # 0.8 K/mm3 (0.1-1.0); Monocytes % 6.3 % (1.7-9.3); Neutrophils # 10.9 K/mm3 (1.8-7.8); Neutrophils % 83.7 % (37.0-80.0); Platelet Count 233 K/mm3 (142-424); Red Blood Count 4.34 M/mm3 (4.60-6.20); Red Cell Distribution Width 17.3 % (11.5-17.5)
[2022-03-14 07:28] LABS: Albumin Level 3.5 g/dl (3.5-5.0); Albumin/Globulin Ratio 1.3 (1.1-1.8); Alkaline Phosphatase 92 U/L (38-126); Anion Gap 16.4 mEq/L (5-15); Blood Urea Nitrogen 39 mg/dl (9-20); Calcium 8.6 mg/dl (8.4-10.2); Carbon Dioxide 25 mmol/L (22.0-30.0); Chloride 94 mmol/L (98-107); Creatinine Clearance Estimated 49 mL/min (50-200); Estimated Glomerular Filt Rate 28 ml/min (>60); GFR (African American) 33 ML/MIN (>60); Globulin 2.8 g/dL (1.3-3.2); Glucose 126 mg/dl (74-100); Magnesium 2.5 mg/dl (1.6-2.3); Potassium 4.4 mmoL/L (3.5-5.1); Sodium 131 mmol/L (136-145); Total Protein,Serum 6.3 g/dl (6.3-8.2)
[2022-03-14 07:35] LABS: Alanine Aminotransferase 1154 U/L (12-78)
[2022-03-14 07:57] LABS: Aspartate Amino Transferase 3292 U/L (17-59)
--- NOTE | 2022-03-14 10:30 | NM_ITS ---
PROCEDURE INFORMATION: Exam: NM Lung Ventilation and Perfusion Imaging Exam date and time: 03/14/2022 11:05 AM Age: 61 years old Clinical indication: Dyspnea; Additional info: Dyspnea, elevated d-dimer TECHNIQUE: Imaging protocol: Nuclear pulmonary ventilation with aerosol or gas was performed followed by perfusion. Views: Ventilation acquired with multiple projections. Perfusion acquired with multiple projections. Radiopharmaceutical: 8.00 mCi Tc-99m MAA, IV; 35.2 mCi Tc-99m DTPA, aerosol COMPARISON: CR XR CHEST PORTABLE 03/12/2022 2:45 PM FINDINGS: Ventilation: Normal. No ventilation defects. Perfusion: Normal. No perfusion defects. IMPRESSION: Normal perfusion. No evidence of pulmonary embolism.
--- NOTE | 2022-03-14 11:13 | EXP.CARD.CON ---
History of Present Illness History of Present Illness Consult date: 03/14/22 Requesting physician: Israle Cantu Consult reason: shortness of breath Chief complaint: Shortness of air and fatigue Additional Medical History:: Significant past medical history History of systolic heart failure (EF 20 to 25% on echo 11/01) Chronic hypoxic respiratory failure Chronic kidney disease Medical noncompliance V. fib arrest status post ROSC after 1 round of ACLS and 1 shock Cardiac history: Reports previous stent placement and intervention by Dr. Porter in [place].? Known LAD disease. Previously recommended CABG, patient declined to pursue. In need of AICD/pacemaker, has deferred for several years; previously wore a LifeVest for 2 years per 's report Echo from 02/23/2022 Conclusion 1.? Technically very difficult study, Definity contrast was utilized to delineate the endocardial surfaces. 2.? Dilated left ventricle, severely this left ventricular systolic function, estimated ejection fraction 15%, left ventricle is globally hypokinetic, diastolic parameters are inconclusive, Doppler evidence of low cardiac output state. 3.? Mildly enlarged right ventricle with normal contractility. 4.? Mild mitral and tricuspid regurgitation. 5.? No significant pericardial effusion noted. 6.? Inferior vena cava is poorly visualized. Further history obtained on Mr. Ortiz today.? Records obtained from [facility]. Previously presented to [facility] in 2015 with a STEMI.? Found to have 100% occlusion of his LAD.? Underwent stenting of proximal LAD.? At that time was found to have severely reduced ejection fraction of 30%.? Was discharged home on a LifeVest. Review of records from via [facility].? Last seen by cardiology at [facility] 08/17/2020 History at that time as follows: Mele Ortiz is a 60 y.o. male who presents today in the electrophysiology clinic for follow up.? He is followed for HTN, prior LA with PCI to the LAD(2015) who presented to OSH with NSTEMI, complicated by VF arrest with ROSC after one round of ACLS and one shock. Transferred to and underwent PCI with XIOMARA to cx lesion, QUALITY MANAGEMENT NURSE proximal LAD and staged PCI to RCA on 04/03/19. CMR showed LV thrombi and EF of 20%. He was initially seen as outpatient in August 2019 and wanted to think more about possible implant of ICD and wanted to follow up in 1 month, but has since been lost to follow up. He is still wearing his LifeVest. Denies any treatments in 2019 or so far in 2020, but last fall he was on his mower and didn't hear the alarm, the gel started to come out and then he was able to abort it. Treated for LV thrombus in March 2019 with Eliquis.? No thrombus noted on echo in August 2019. Documentation of multiple previous discussions for ICD placement.? Patient has deferred on having device placed previously. Appears he has been living with EF of 30% or less since at least 2015 and EF of 20% or less since March 2019. History of present illness: 61-year-old white male with above past medical history presented to emergency department with complaints of increased shortness of air and fatigue over the past few weeks. Of note, patient was recently hospitalized with same complaint a few weeks ago and was treated for CHF exacerbation. Patient has long standing history of reduced ejection fraction in the 20s and is a candidate for AICD placement, however, patient has been reluctant to get device. Reports since going home has continued to feel poorly. Upon initial evaluation in ER patient was found to be in atrial flutter with a heart rate in the 130s. Initial labs as follow: Sodium 138, potassium 3.8, anion gap 15.8, BUN 17, creatinine 1.7, and troponin of 0.13. D-dimer was also noted to be elevated. Patient could not undergo CTA due to chronic kidney disease so VQ scan was ordered and is pending. Chest x-ray showed persistent region of opacification in the right mid lower lung. Findings unchanged and may refle
--- NOTE | 2022-03-14 11:57 | XR_ITS ---
FINAL REPORT CLINICAL HISTORY: POST V.Q. COMPARISON: March 12, 2022 FINDINGS: TWO-VIEW CHEST Two views of the chest were obtained. There is severe cardiomegaly. There is pulmonary vascular congestion. The mediastinum is normal. There are small bilateral pleural effusions. There is no pneumothorax. The bony thorax is intact. IMPRESSION: Findings suggestive of mild CHF. Reviewed, Interpreted and Dictated by Jeffrey Garza MD Transcribed by Elizabeth Guy Authenticated and . [facility]
--- NOTE | 2022-03-14 14:52 | PC.NURSE ---
1431 notified Rtuh of pt 7 beat run of vtach. pt resting in bed at time of ectopy. no new orders 1440 clarified order for heparin drip. ruth states brigitte wants lovenox and plavix held. vq scan negative, heparin drip not necessary at this time. information relayed to pharmacy.
--- NOTE | 2022-03-14 15:14 | PC.NURSE ---
Addendum entered by Elysia Joshua RN 03/14/22 17:07: drip decreased to 10mcg 1630 (bp 132/78) drip decreased to 8mcg 1700 (bp 111/78) Original Note: late entry: start of shift levophed drip at 3mcg drip increased to 5mcg 1116 (bp 72/50) drip increased to 10mcg 1118 (bp 76/47) drip increased to 15mcg 1124 (bp 78/49) drip decreased to 13mcg 1315 (bp 107/69)
--- NOTE | 2022-03-14 15:45 | PC.NURSE ---
late entry; pt to radiology for VQ scan with PERSONAL LINES ADVISOR left unit at 1040 returned to unit at 1216
[2022-03-14 16:23] LABS: Albumin Level 3.7 g/dl (3.5-5.0); Albumin/Globulin Ratio 1.2 (1.1-1.8); Alkaline Phosphatase 117 U/L (38-126); Anion Gap 15.1 mEq/L (5-15); Bilirubin,Total 5.6 mg/dl (0.2-1.3); Blood Urea Nitrogen 41 mg/dl (9-20); Calcium 8.8 mg/dl (8.4-10.2); Carbon Dioxide 27 mmol/L (22.0-30.0); Chloride 94 mmol/L (98-107); Creatinine Clearance Estimated 49 mL/min (50-200); Estimated Glomerular Filt Rate 28 ml/min (>60); GFR (African American) 33 ML/MIN (>60); Globulin 3.1 g/dL (1.3-3.2); Glucose 153 mg/dl (74-100); Potassium 3.1 mmoL/L (3.5-5.1); Sodium 133 mmol/L (136-145); Total Protein,Serum 6.8 g/dl (6.3-8.2)
[2022-03-14 16:49] LABS: Alanine Aminotransferase 1171 U/L (12-78)
[2022-03-14 17:50] LABS: Aspartate Amino Transferase 2296 U/L (17-59)
--- NOTE | 2022-03-14 17:55 | EXP.ACUTE.PN ---
Subjective *Date: 03/14/22 *Time: 17:55 Interval history: Patient remains seriously ill. Appears a little bit more alert this morning. Denies nausea or vomiting overnight. Fluid neutral for the past 24 hours due to drips and poor diuresis. Remains in sinus rhythm with frequent PVCs. Continuing to require milrinone and norepinephrine. Family at bedside. Increased oxygen requirement to 4 L. Labs this morning show worsening liver function and renal function. No acute events overnight. Medical Exam Vital signs and Labs for Last 24 Hours: Vital Signs Temp Pulse Pulse Pulse Resp BP Pulse Ox 03/14/22 12:16 99 H 03/14/22 12:30 98 H 22 108/74 L 95 03/14/22 11:45 98 H 20 98/63 L 94 L 03/14/22 11:30 95 H 22 92/53 L 93 L 03/14/22 11:24 97 H 20 78/49 L 95 03/14/22 11:21 96 H 22 79/48 L 93 L 03/14/22 11:18 97 H 22 76/47 L 93 L 03/14/22 11:16 97 H 20 72/50 L 93 L 03/14/22 10:45 96 H 22 98/62 L 93 L 03/14/22 15:00 110 H 20 90/65 L 92 L 03/14/22 14:00 102 H 22 103/63 L 92 L 03/14/22 13:00 99 H 20 113/72 94 L 03/14/22 12:00 97 H 22 106/70 L 94 L 03/14/22 08:50 95 H 95 03/14/22 11:00 96 H 20 105/70 L 93 L 03/14/22 10:00 87 17 98/63 L 99 03/14/22 09:00 88 20 95/51 L 95 03/14/22 08:00 88 18 100/67 L 97 03/14/22 08:00 88 03/14/22 08:00 98.3 F 03/14/22 09:57 87 21 03/14/22 09:56 87 03/14/22 09:56 87 03/14/22 09:56 93 L 03/14/22 07:00 86 20 88/51 L 93 L 03/14/22 06:00 87 16 107/71 L 98 03/14/22 06:00 80 03/14/22 00:00 90 03/13/22 20:00 110 H 03/14/22 06:21 97 03/14/22 04:00 03/14/22 05:00 86 15 96/51 L 93 L 03/14/22 04:00 97.8 F 89 15 93/59 L 93 L 03/14/22 03:00 90 16 94/54 L 93 L 03/14/22 02:00 93 H 17 97/64 L 92 L 03/14/22 01:00 93 H 19 97/61 L 91 L 03/14/22 00:00 98.4 F 98 H 19 89/57 L 93 L 03/13/22 23:00 100 H 20 91/59 L 91 L 03/13/22 22:00 105 H 24 100/70 L 90 L 03/13/22 21:00 106 H 24 131/84 95 03/13/22 20:00 99.1 F 107 H 23 116/76 91 L 03/13/22 18:55 03/13/22 18:30 105 H 22 95/52 L 93 L 03/13/22 18:00 98.1 F 102 H 20 97/42 L 94 L FiO2 03/14/22 12:16 03/14/22 12:30 03/14/22 11:45 03/14/22 11:30 03/14/22 11:24 03/14/22 11:21 03/14/22 11:18 03/14/22 11:16 03/14/22 10:45 03/14/22 15:00 03/14/22 14:00 03/14/22 13:00 03/14/22 12:00 03/14/22 08:50 50 03/14/22 11:00 03/14/22 10:00 03/14/22 09:00 03/14/22 08:00 03/14/22 08:00 03/14/22 08:00 03/14/22 09:57 03/14/22 09:56 03/14/22 09:56 03/14/22 09:56 03/14/22 07:00 03/14/22 06:00 03/14/22 06:00 03/14/22 00:00 03/13/22 20:00 03/14/22 06:21 50 03/14/22 04:00 50 03/14/22 05:00 03/14/22 04:00 03/14/22 03:00 03/14/22 02:00 03/14/22 01:00 03/14/22 00:00 03/13/22 23:00 03/13/22 22:00 03/13/22 21:00 03/13/22 20:00 03/13/22 18:55 32 03/13/22 18:30 03/13/22 18:00 Intake and Output 03/14/22 03/14/22 03/14/22 07:59 15:59 23:59 Intake Total 723 / 905 182 / 905 Output Total 595 / 1194 599 / 1194 Balance 128 / -289 -417 / -289 Intake: Intake, Total IV Amount 723 / 905 182 / 905 Amiodarone HCl 900 mg In 133 / 211 78 / 211 Dextrose 5 % in Water 500 ml @ 33.3 mls/hr IV .[id number] [facility] Rx# :[id number] Milrinone Lactate 20 mg In 0.9 52 / 97 45 / 97 % Sodium Chloride 80 ml @ 0.125 MCG/KG/MIN 4.07 mls/hr IV . [id number] [facility] Rx#:[id number] Mvi, Adult No.1 with Vit K 10 500 / 500 ml Thiamine HCl 100 mg Magnesium Sulfate 2 gm In Ringers Solution,Lactated 1,000 ml @ 125 mls/hr IV ONCE ONE Rx #:[id number] Norepinephrine Bitartrate 8 mg / 59 / 97 I
--- NOTE | 2022-03-14 22:18 | PC.NURSE ---
He is A&Ox4. He denies pain. He will be NPO at midnight for planned AICD placement in the am. Sinus tach on telemetry on with periods of vtach and bigeminy. He continues to void per urinal. His urine is yellow, clear. His is at the bedside. Extension placed on oxygen tubing because they were taking it off for him to void and his O2 would drop to 70s. Both educated on importance of keeping O2 on at all times. He continues on 4LPM n/c. He is jaundiced. Severe weakness of RUE. He states his last BM was today.
[2022-03-15] VITALS (43 sets, daily range): BP systolic 81–127; BP diastolic 38–85; PULSE 78–158; RESP 17–30; TEMP 36.4–37.1; O2SAT 80–96; BMI 34.9
--- NOTE | 2022-03-15 00:51 | PC.NURSE ---
Order for zofran obtained for nausea. No vomiting. Placed on 50% venti while sleeping r/t O2 decreasing to 83-84%.
--- NOTE | 2022-03-15 02:23 | EXP.RR ---
Acute Rapid Response Note Subjective Date Responded: 03/15/22 Time Responded: 01:45 Provider Note: Code Cheikh (Rapid Response) called overhead to room 219 at 0144. Went to bedside. RN reported patient became unconscious, went into pulseless V-tach. RN reported 1 round of chest compressions started and patient became responsive. Upon arrival to the room patient was with a non-rebreather, verbal. On Monitor at time of arrival in the room, patient in Atrial Fibrillation with rate in the 140's, blood pressure in the 80's systolic, oxygenation in 80's initially, went up to 96%. RN spoke with Cardiology, Amiodarone, bolus and drip orders per Cardiology. Orders placed. Titrating Levophed up to maintain map 65 or >. at bedside. Discussed with events and treatment given. Labs ordered: BMP, mag, ABG, troponin, Cxray ordered, BNP. Orders to replace K by iv, gave dose of Bumex, Order placed for Surgery consult for central line placement with multiple gtt, critically ill. Cxrays from today reviewed. Objective Findings: Vital Signs - Last 4 Hours Temperature 98.0 F 03/15/22 00:00 Temperature Source Oral 03/15/22 00:00 Pulse Rate 138 H 03/15/22 01:00 Respiratory Rate 17 03/15/22 00:00 Blood Pressure 99/70 L 03/15/22 01:00 Blood Pressure Mean 79 03/15/22 01:00 Blood Pressure Source Automatic Cuff 03/15/22 01:00 Blood Pressure Position Supine 03/15/22 01:00 02 Sat by Pulse Oximetry 96 03/15/22 01:00 Oxygen Delivery Method 03/15/22 01:00 Oxygen Flow Rate (LPM) 4 03/14/22 23:51 Lab Results for Past 12 Hours 03/14/22 16:00: Sodium 133 L, Potassium 3.1 L D, Chloride 94 L, Carbon Dioxide 27, Anion Gap 15.1 H, BUN 41 H, Creatinine 2.40 H, Estimated Creat Clear 49, Estimated GFR 28 L, Est GFR ( Amer) 33 L, Glucose 153 H D, Calcium 8.8, Total Bilirubin 5.6 H, AST 2296 H* D, ALT 1171 H*, Alkaline Phosphatase 117, Total Protein 6.8, Albumin 3.7, Globulin 3.1, Albumin/Globulin Ratio 1.2 My Orders Category Date Time Status BMP [Basic Metabolic Panel] Stat Lab 03/15/22 02:18 Received MAG [Magnesium] Stat Lab 03/15/22 02:18 Received Trop I [Troponin I] Q6H Lab 03/15/22 02:18 Received Trop I [Troponin I] Q6H Lab 03/15/22 08:00 Ordered Trop I [Troponin I] Q6H Lab 03/15/22 14:00 Ordered Trop I [Troponin I] Q6H Lab 03/15/22 20:00 Ordered Bumetanide [Bumex 1mg/4mL Vial] Med 03/15/22 02:22 Once 1 mg IV ONCE ONE Ondansetron [Zofran 4mg ODT] Med 03/15/22 00:21 Ordered 4 mg SL Q8HP PRN ABG [Arterial Blood Gas] Stat RT 03/15/22 01:58 Ordered Rapid Response Exam General General appearance: alert and in distress Head Head exam: normocephalic Eye Eye exam: Present normal appearance Neck Neck exam: Present trachea midline Chest Chest inspection: Present normal inspection Respiratory Respiratory exam: Present respiratory distress Expanded Respiratory Exam Location: Left: rales and decreased breath sounds and Right: rales and decreased breath sounds Cardiovascular Cardiovascular exam: Present irregular rhythm Abdominal Exam Abdominal exam: Present distention RR Procedures/Assess/Plan (1) Cardiogenic shock: Status: Acute (2) Atrial flutter: Status: Acute (3) Acute exacerbation of CHF (congestive heart failure): Status: Acute (4) Non-ST elevation (NSTEMI) myocardial infarction: Status: Acute (5) GUIDO (acute kidney injury): Status: Acute (6) Hypokalemia: Status: Acute (7) Community acquired pneumonia: Status: Acute (8) Hyperbilirubinemia: Status: Acute (9) Chronic hypoxemic respiratory failure: Status: Acute (10) Hyperammonemia: Status: Acute Assessment and plan all Dx Assessment and Plan for all problems:: Called and discussed patient with Crinkling Machine Operator, Dr. Porter Will continue Amiodarone, continue Levophed, Milrione, maintain Map 65 or greater, add Vasopressin if needed Repla
[2022-03-15 02:24] LABS: VBG Base Excess 0.8 mmol/L (-2.4-2.3); VBG HCO3 25.2 mmol/L (23-30); VBG PCO2 39.5 mmol/L (35-51); VBG PH 7.42 mmol/L (7.31-7.41); VBG PO2 105.2 mmol/L (28-40); VBG Total CO2 26.4 mmol/L (23-27)
[2022-03-15 02:29] LABS: Chloride 93 mmol/L (98-107); Potassium 3.1 mmoL/L (3.5-5.1); Sodium 133 mmol/L (136-145)
[2022-03-15 02:32] LABS: Anion Gap 15.1 mEq/L (5-15); Blood Urea Nitrogen 37 mg/dl (9-20); Calcium 8.4 mg/dl (8.4-10.2); Carbon Dioxide 28 mmol/L (22.0-30.0); Creatinine Clearance Estimated 59 mL/min (50-200); Estimated Glomerular Filt Rate 34 ml/min (>60); GFR (African American) 41 ML/MIN (>60); Glucose 145 mg/dl (74-100)
--- NOTE | 2022-03-15 02:36 | XR_ITS ---
PROCEDURE INFORMATION: Exam: XR Chest Exam date and time: 03/15/2022 2:28 AM Age: 61 years old Clinical indication: Shortness of breath; Additional info: Rapid TECHNIQUE: Imaging protocol: Radiologic exam of the chest. Views: 1 view. COMPARISON: CR XR CHEST 2V 03/14/2022 12:00 PM FINDINGS: Lungs: Focal consolidation is present in the left costophrenic angle. Left lung is largely obscured by overlying pacing pad. Right lung appears clear. Pleural spaces: Unremarkable. No pleural effusion. No pneumothorax. Heart/Mediastinum: Cardiomediastinal silhouette appears mildly enlarged and stable Bones/joints: Unremarkable. IMPRESSION: Mild left lower lobe infiltrate
[2022-03-15 02:41] LABS: Magnesium 2.1 mg/dl (1.6-2.3)
[2022-03-15 02:56] LABS: Troponin I 0.26 ng/ml (0.00-0.034)
[2022-03-15 03:11] LABS: NT Pro Brain Natriuretic Pep. 12500 pg/mL (0-125)
--- NOTE | 2022-03-15 04:29 | PC.NURSE ---
At 0123 Pt HR had increased to 160s. Deb WELDING MACHINE OPERATOR [employer] was notified. German was consulted and new orders received to give Amiodarone bolus and start pt on amiodarone gtt. EKG ordered. Pt was noted at 0143 Pt noted to be in VTACH. Rapid red was called. signal supervisor at bedside. Pt noted to be unresponsive and not breathing. No pulse noted. Compressions started. Within one round of compressions, pulse was noted and pt started breathing spontaneously. HR noted to be AFIB. AMiodarone bolus administered. AMiodarone gtt is currently infusing @ 33.3 ml/hr. EKG was obtained. Bumex administered @ 0240. Potassium infusion started at 0255. Milrinone is infusing @ 0.2 mcg/kg/min. Levophed @ 20 mcg/min. Pt converted to sinus tach and is currently sinus tach with frequent PVC's. HR is 120s. is at bedside.
[2022-03-15 06:39] LABS: Albumin Level 3.4 g/dl (3.5-5.0); Albumin/Globulin Ratio 1.1 (1.1-1.8); Alkaline Phosphatase 113 U/L (38-126); Anion Gap 14.4 mEq/L (5-15); Bilirubin,Total 5.3 mg/dl (0.2-1.3); Blood Urea Nitrogen 39 mg/dl (9-20); Calcium 8.3 mg/dl (8.4-10.2); Carbon Dioxide 27 mmol/L (22.0-30.0); Chloride 94 mmol/L (98-107); Creatinine Clearance Estimated 56 mL/min (50-200); Estimated Glomerular Filt Rate 32 ml/min (>60); GFR (African American) 39 ML/MIN (>60); Globulin 3.2 g/dL (1.3-3.2); Glucose 153 mg/dl (74-100); Magnesium 2.1 mg/dl (1.6-2.3); Potassium 3.4 mmoL/L (3.5-5.1); Sodium 132 mmol/L (136-145); Total Protein,Serum 6.6 g/dl (6.3-8.2)
[2022-03-15 06:43] LABS: Basophils % 0.3 % (0.1-2.0); Eosinophils # 0.1 K/mm3 (0.0-0.4); Eosinophils % 0.4 % (0.1-12.0); Hematocrit 45.1 % (42.0-52.0); Hemoglobin 14.7 g/dL (14.1-18.0); Lymphocytes # 0.9 K/mm3 (0.7-4.5); Lymphocytes % 7.2 % (10-50); Mean Corpuscular HGB Conc 32.6 g/dL (31.8-35.4); Mean Corpuscular Volume 98.1 fl (80-94); Mean Platelet Volume 9.7 fl (7.4-10.4); Monocytes # 0.9 K/mm3 (0.1-1.0); Monocytes % 7.5 % (1.7-9.3); Neutrophils # 10.5 K/mm3 (1.8-7.8); Neutrophils % 84.5 % (37.0-80.0); Platelet Count 291 K/mm3 (142-424); Red Cell Distribution Width 17.7 % (11.5-17.5); White Blood Count 12.5 K/mm3 (4.8-10.8)
[2022-03-15 06:46] LABS: Alanine Aminotransferase 973 U/L (12-78)
[2022-03-15 07:00] LABS: Aspartate Amino Transferase 1418 U/L (17-59)
--- NOTE | 2022-03-15 07:01 | IR_ITS ---
APPROVED REPORT Patient Location: Inpatient Ornament Setter: KELBY Vela RT (R) PROCEDURES 1. Pocket formation for biventricular pacemaker generator with cardiac resynchronization/defibrillator therapy. 2. Placement of atrial sensing and pacing lead into the right atrial appendage. 3. Placement of a right ventricular sensing, pacing and shocking lead in the right ventricular apex. 4. Placement of left ventricular sensing pacing lead via the coronary sinus. 5. Permanent cardiac resynchronization therapy with ICD implantation/biventricular pacemaker. INDICATION Systolic Congestive Heart Failure, ejection <35%, Wide QRS >120ms, [place] Heart Assoication Class 3 Congestive Heart Failure Informed consent was obtained prior to the procedure. COMPLICATIONS None Estimated Blood Loss: Less than 10 mls TECHNIQUE 1% Lidocaine with epinephrine used to anesthetized the left anterior aspect of the chest. Scalpel was used to make the initial cutaneous incision while electrocautery was used to dissect down tinto the fascia. The fascia was lifted off the pectoralis muscle and digitally manipulated creating a pocket for the defibrillator. The patient was then placed in Trendelenburg position and the subclavian vein was accessed 3 times via the Selinger technique. A 8 Fijian sheath was placed under fluoroscopic guidance into the subclavian vein. The dilator was removed from the sheath. Using fluoroscopic guidance, the ventricular lead was placed into the right ventricular apex, screwed and secured into place. Electronic interrogation proved acceptable thresholds and voltage within the lead. Using 3-0 silk, the ventricular lead was then secured into place and sheath peeled away. Following this, a 9.5 Fijian sheath and dilator was then placed over one of the wires while keeping the other wire in place within the subclavian vein. The dilator was removed from the sheath. Using fluoroscopic guidance, contrast was used to visualize the coronary sinus, the left ventricular lead was placed into the coronary sinus. Electronic interrogation proved acceptable thresholds and voltage within the lead. Using 3-0 silk, the left ventricular lead was then secured into place and sheath peeled away.An additional 6 Fijian fresh sheath and dilator was placed over the existing wire. Using fluoroscopic guidance, the atrial lead was then placed into the right atrial appendage and screwed and secured in place. Electrical interrogation demonstrated acceptable thresholds and voltage number. The atrial lead was then secured into place using 3-0 silk and sheath peeled away. 1 gram of Ancef was used to flush the pocket. All 3 leads were connected to generator and tested via computer. The defibrillator then secured to the fascia. Monocryl was used to close the subcutaneous layers while melia were used to close the cutaneous layer. A pressure dressing was placed and the patient was transferred to the postop holding area in stable condition for postoperative care. INTERROGATION Generator Model number: Vigilant X4 CROSSBAR FRAME WIRER-D IS-1/DF4/IS4 G247 Generator Serial number: [id number] Atrial lead model number: INGEVITY + IS-1 BI POSITIVE FIX RA/RV 52 CM 7841 Atrial lead serial number: [id number] P-wave: 2.0 mV Impedence: 450 OHMS Threshold: 1.5V @ 0.4ms CURRENT: 3.3 mA Right Ventricular lead model number: [place]AIL[place]U 4-FRIBT ACTIVE FIX DUAL COIL 59 CM 0675 Right Ventricular lead serial number: [id number] R-wave: 25.0 mV Impedence: 550 OHMS Threshold: 1.0V @ 0.4 ms SHOCK IMPEDENCE: 40 OHMS CURRENT: 1.8 mA Left Ventricular lead model number: ACUITY X4 STRAIGHT LVA QUAD ELECTRODE IS4 PASSIVE 86 CM 4671 Left Ventricular reji
[2022-03-15 08:51] LABS: Troponin I 0.22 ng/ml (0.00-0.034)
--- NOTE | 2022-03-15 09:08 | EXP.ACUTE.PN ---
Subjective *Date: 03/15/22 *Time: 09:21 Interval history: Overnight patient started cardiac arrest, CODE BLUE called, patient received chest compressions and ROSC was achieved. This morning he is doing okay without any significant complaints. Just inquiring about when his procedure will be. Medical Exam Vital signs and Labs for Last 24 Hours: Vital Signs Temp Pulse Pulse Pulse Resp BP Pulse Ox 03/15/22 08:00 97.5 F L 03/15/22 08:10 127 H 03/15/22 08:10 128 H 03/15/22 08:10 92 L 03/15/22 04:00 120 H 03/15/22 07:00 128 H 22 100/54 L 95 03/15/22 06:00 127 H 22 95/63 L 94 L 03/15/22 05:00 127 H 22 93/66 L 96 03/15/22 06:14 96 03/15/22 04:00 98.6 F 127 H 23 96/65 L 94 L 03/15/22 03:30 127 H 23 96/63 L 96 03/15/22 03:00 127 H 23 99/72 L 95 03/15/22 02:30 131 H 23 112/75 95 03/15/22 02:15 132 H 24 102/57 L 92 L 03/15/22 02:07 126 H 24 81/52 L 87 L 03/15/22 01:50 158 H 117/85 92 L 03/15/22 01:00 138 H 99/70 L 96 03/15/22 00:00 98.0 F 114 H 17 104/78 L 90 L 03/15/22 00:00 110 H 03/14/22 23:00 120 H 99/64 L 89 L 03/14/22 22:51 93 L 03/14/22 20:00 97.7 F 119 H 24 105/73 L 86 L 03/14/22 20:00 120 H 03/14/22 20:00 95 03/14/22 22:00 114 H 20 101/63 L 95 03/14/22 21:00 114 H 125/78 92 L 03/14/22 19:00 113 H 20 110/64 91 L 03/14/22 12:30 94 H 94 L 03/14/22 17:00 116 H 20 111/78 88 L 03/14/22 16:00 114 H 88 L 01/02/23 18:00 113 H 20 103/67 L 89 L 03/14/22 16:00 114 H 22 142/79 H 88 L 03/14/22 18:21 111 H 03/14/22 18:21 112 H 03/14/22 18:21 93 L 03/14/22 16:00 114 H 03/14/22 12:00 98.4 F 03/14/22 16:00 98.1 F 03/14/22 12:16 99 H 03/14/22 12:30 98 H 22 108/74 L 95 03/14/22 11:45 98 H 20 98/63 L 94 L 03/14/22 11:30 95 H 22 92/53 L 93 L 03/14/22 11:24 97 H 20 78/49 L 95 03/14/22 11:21 96 H 22 79/48 L 93 L 03/14/22 11:18 97 H 22 76/47 L 93 L 03/14/22 11:16 97 H 20 72/50 L 93 L 03/14/22 10:45 96 H 22 98/62 L 93 L 03/14/22 15:00 110 H 20 90/65 L 92 L 03/14/22 14:00 102 H 22 103/63 L 92 L 03/14/22 13:00 99 H 20 113/72 94 L 03/14/22 12:00 97 H 22 106/70 L 94 L 03/14/22 11:00 96 H 20 105/70 L 93 L 03/14/22 10:00 87 17 98/63 L 99 03/14/22 09:57 87 21 03/14/22 09:56 87 03/14/22 09:56 87 03/14/22 09:56 93 L FiO2 03/15/22 08:00 03/15/22 08:10 03/15/22 08:10 03/15/22 08:10 50 03/15/22 04:00 03/15/22 07:00 100 03/15/22 06:00 100 03/15/22 05:00 100 03/15/22 06:14 100 03/15/22 04:00 100 03/15/22 03:30 100 03/15/22 03:00 100 03/15/22 02:30 100 03/15/22 02:15 100 03/15/22 02:07 100 03/15/22 01:50 100 03/15/22 01:00 50 03/15/22 00:00 35 03/15/22 00:00 03/14/22 23:00 03/14/22 22:51 03/14/22 20:00 03/14/22 20:00 03/14/22 20:00 03/14/22 22:00 03/14/22 21:00 03/14/22 19:00 03/14/22 12:30 03/14/22 17:00 03/14/22 16:00 03/14/22 18:00 03/14/22 16:00 03/14/22 18:21 03/14/22 18:21 03/14/22 18:21 03/14/22 16:00 03/14/22 12:00 03/14/22 16:00 03/14/22 12:16 03/14/22 12:30 03/14/22 11:45 03/14/22 11:30 03/14/22 11:24 03/14/22 11:21 03/14/22 11:18 03/14/22 11:16 03/14/22 10:45 03/14/22 15:00 03/14/22 14:00 03/14/22 13:00 03/14/22 12:00 03/14/22 11:00 03/14/22 10:00 03/14/22 09:57 03/14/22 09:56 03/14/22 09:56 03/14/22 09:56 Intake and Output 03/14/22 03/15/22 03/15/22 23:59 07:59 15:59 Intake Total 458 / 1482 998.009 / 998.009 0 / 998.009 Output Total 1974 / 4193 1050 / 1050 Balance -1516 / -2711 -51.991 / -51.991 0 / -51.991 Intake: Intake, Oral Amount 240 / 240
--- NOTE | 2022-03-15 10:09 | PC.NURSE ---
Critical lab value received at 0851 Trop 0.22. , name and results repeated and verifief back to lab. Ruth notified face to face at 0853 Dr Barbara Porter notified face to face 0854 no new orders
--- NOTE | 2022-03-15 11:01 | EXP.CARD.PN ---
Subjective Subjective Date: 03/15/22 Time: 08:00 Principal diagnosis: Acute systolic heart failure Interval history: Sustained V. tach and cardiac arrest noted overnight. Patient received run round of CPR and ROSC was achieved. Patient resting this a.m. awaiting AICD placement. Patient remains on milrinone and levo. Amnio drip was restarted last night. A.m. labs reviewed: Sodium 132, creatinine 3.4, creatinine 2.10 up from 2, AST 1418, ALT 973, troponin 0.22 down from 0.26. Exam Data for Last 24 hours Vital signs and Labs for Last 24 Hours: Temp Pulse Resp BP Pulse Ox FiO2 97.5 F L 128 H 22 96/60 L 91 L 50 03/15/22 08:00 03/15/22 10:00 03/15/22 10:00 03/15/22 10:00 03/15/22 10:00 03/15/22 10:00 Laboratory Results - last 24 hr 03/14/22 16:00: Sodium 133 L, Potassium 3.1 L D, Chloride 94 L, Carbon Dioxide 27, Anion Gap 15.1 H, BUN 41 H, Creatinine 2.40 H, Estimated Creat Clear 49, Estimated GFR 28 L, Est GFR ( Amer) 33 L, Glucose 153 H D, Calcium 8.8, Total Bilirubin 5.6 H, AST 2296 H* D, ALT 1171 H*, Alkaline Phosphatase 117, Total Protein 6.8, Albumin 3.7, Globulin 3.1, Albumin/Globulin Ratio 1.2 03/15/22 02:18: Sodium 133 L, Potassium 3.1 L, Chloride 93 L, Carbon Dioxide 28, Anion Gap 15.1 H, BUN 37 H, Creatinine 2.00 H, Estimated Creat Clear 59, Estimated GFR 34 L, Est GFR ( Amer) 41 L D, Glucose 145 H, Calcium 8.4 03/15/22 02:18: Magnesium 2.1 D, Troponin I 0.26 H 03/15/22 02:18: NT-Pro-B Natriuret Pep 65189 H 03/15/22 02:23: VBG pH 7.42 H, VBG pCO2 39.5, VBG pO2 105.2 H, VBG HCO3 25.2, VBG Total CO2 26.4, VBG O2 Saturation 98.0 H, VBG Base Excess 0.8 03/15/22 06:00: WBC 12.5 H, RBC 4.60, Hgb 14.7, Hct 45.1, MCV 98.1 H, MCH 32.0 H, MCHC 32.6, RDW 17.7 H, Plt Count 291, MPV 9.7, Neut % (Auto) 84.5 H, Lymph % (Auto) 7.2 L, [place] % (Auto) 7.5, Eos % (Auto) 0.4, Baso % (Auto) 0.3, Neut # (Auto) 10.5 H, Lymph # (Auto) 0.9, [place] # (Auto) 0.9, Eos # (Auto) 0.1, Baso # (Auto) 0.0 03/15/22 06:00: Sodium 132 L, Potassium 3.4 L, Chloride 94 L, Carbon Dioxide 27, Anion Gap 14.4, BUN 39 H, Creatinine 2.10 H, Estimated Creat Clear 56, Estimated GFR 32 L, Est GFR ( Amer) 39 L, Glucose 153 H, Calcium 8.3 L, Magnesium 2.1, Total Bilirubin 5.3 H, AST 1418 H* D, ALT 973 H*, Alkaline Phosphatase 113, Total Protein 6.6, Albumin 3.4 L, Globulin 3.2, Albumin/Globulin Ratio 1.1 03/15/22 08:08: Troponin I 0.22 H I & O for Last 24 hours: Intake & Output 03/12/22 03/13/22 03/14/22 03/15/22 23:59 23:59 23:59 23:59 Intake Total 1682 / 1833 1461 / 1482 998.009 / 998.009 Output Total 1280 / 1280 3643 / 4193 1050 / 1050 Balance 402 / 553 -2182 / -2711 -51.991 / -51.991 Weight 235 lb 7 oz 239 lb 4 oz 235 lb 14.314 oz 235 lb 10.786 oz Microbiology Reports for the Last 24 Hours: Microbiology 03/12/22 14:30 Blood Blood Culture - Preliminary NO GROWTH AFTER 48 HOURS 03/12/22 14:30 Blood Blood Culture - Preliminary NO GROWTH AFTER 48 HOURS Constitutional Constitutional: no acute distress *Routine Respiratory Exam Respiratory: Present crackles, diminished air movement and symmetric chest movement *Routine Cardiovascular Exam Cardiovascular: Present RRR, Normal S1 and Normal S2 *Routine Abdominal Exam Abdominal: Present soft and normoactive bowel sounds; Absent tenderness *Routine Extremities Exam Extremities: Present edema and pallor *Routine Skin Exam Skin: Present intact, dry and warm Detailed Neck Exam: Thyroids Thyroid: Absent bruit Progress Note: A&P Assessment and plan (1) Cardiogenic shock: Status: Acute (2) Atrial flutter: Status: Acute (3) Acute exacerbation of CHF (congestive heart failure): Status: Acute (4) Non-ST elevation (NSTEMI) myocardial infarction: Status: Acute (5) GUIDO (acute kidney injury): Status: Acute (6) Hypokalemia: Status: Acute (7) Community acquired pneumonia: Status: Acut
--- NOTE | 2022-03-15 11:06 | PC.NURSE ---
[address] Barbara Tarango that pt has not had any urine output since 0200 this am (verified with pt ). at the time MD was being notified, pt voided 400ml. md had previously requested scan of pt bladder for urine. it was noted PVR of 36ml. Dr Porter notified at 1105
--- NOTE | 2022-03-15 11:10 | PC.NURSE ---
1000 iv pumps cleared for several hours worth of intake
--- NOTE | 2022-03-15 14:43 | PC.NURSE ---
1430 pt off unit with Doug Saldana RN and Ole James RN from energy systems laboratory director.
--- NOTE | 2022-03-15 15:38 | PC.NURSE ---
1519 received critical lab value trop 0.20. [address] German LIN in [facility] as pt is currently on the cath table.
--- NOTE | 2022-03-15 17:30 | XR_ITS ---
PROCEDURE INFORMATION: Exam: XR Chest Exam date and time: 03/15/2022 5:58 PM Age: 61 years old Clinical indication: Device placement; Cardiac pacemaker placement or adjustment; Additional info: Confirm pacemaker/aid placement TECHNIQUE: Imaging protocol: Radiologic exam of the chest. Views: 1 view. Portable AP exam 6:00 p.m. COMPARISON: CR XR CHEST PORTABLE 03/15/2022 2:28 AM FINDINGS: Tubes, catheters and devices: Left subclavian cardiac AICD/pacer. There are 3 leads visualized, 2 are projected over the right atrium, and the 3rd over the right ventricle. Overlying media monitor electrodes and oxygen tubing. New surgical melia projected over the upper left chest overlying the implanted electronic device. Lungs: Hypoventilation, low lung volumes. Hazy perihilar and lower pulmonary airspace opacity and prominence of pulmonary vessels, likely vascular congestion, increased compared with the earlier exam from 2:20 a.m.. No focal consolidation. Pleural spaces: Both diaphragms and costophrenic angles are poorly delineated, likely due to small layering pleural effusions. No pneumothorax, as visualized. Heart/Mediastinum: Chronic enlarged cardiac silhouette. Bones/joints: There is no evidence of acute fracture. Other findings: Overlying external cardioversion paddle. IMPRESSION: 1. Cardiomegaly, with worsened pulmonary vascular congestion compared with the earlier study from 2:28 a.m.. Hazy perihilar and lower pulmonary airspace disease, and likely small bilateral layering pleural effusions. 2. New AICD as detailed above. 3. Additional nonemergency and chronic findings as above.
--- NOTE | 2022-03-15 17:31 | SUR.PHASEII ---
1531 sales and customer relations rep at bedside
--- NOTE | 2022-03-15 17:38 | SUR.OPER ---
1725 treasury accountant. Lance Hogue at bedside called Sarah Porter MD to recommend bipap, new orders for bipap. respiratory called for bipap to be ready at bedside.
--- NOTE | 2022-03-15 18:37 | PC.NURSE ---
18[address] called and spoke with Dr Porter. clarified order for pt amiodarone drip. per once bag complete, start amiodarone 400mg po bid. also states he wants pt to be on metoprolol 25mg po q6h.
[2022-03-15 19:36] LABS: Vancomycin,Trough 18.4 ug/mL (5.0-10.0)
--- NOTE | 2022-03-15 19:40 | PC.NURSE ---
bp 89/60 (69), increased levophed drip to 22mcg/min
--- NOTE | 2022-03-15 20:14 | PC.NURSE ---
spoke iwth night watch about vanc trough level of 18.4, instructed to give ordered dose as scheduled
[2022-03-15 22:00] LABS: Troponin I 0.46 ng/ml (0.00-0.034)
[2022-03-16] VITALS (28 sets, daily range): BP systolic 81–133; BP diastolic 39–77; PULSE 84–116; RESP 13–31; TEMP 36.4–37.1; O2SAT 89–97; BMI 34.5
[2022-03-16 02:43] LABS: Vancomycin,Peak 39.1 ug/ml (11-39)
[2022-03-16 08:58] LABS: Basophils # 0.1 K/mm3 (0-0.2); Basophils % 0.5 % (0.1-2.0); Eosinophils # 0.2 K/mm3 (0.0-0.4); Eosinophils % 1.3 % (0.1-12.0); Hematocrit 41.2 % (42.0-52.0); Hemoglobin 13.7 g/dL (14.1-18.0); Lymphocytes # 0.7 K/mm3 (0.7-4.5); Mean Corpuscular HGB Conc 33.2 g/dL (31.8-35.4); Mean Corpuscular Volume 96.2 fl (80-94); Mean Platelet Volume 9.1 fl (7.4-10.4); Monocytes # 0.7 K/mm3 (0.1-1.0); Monocytes % 6.1 % (1.7-9.3); Neutrophils # 10.5 K/mm3 (1.8-7.8); Neutrophils % 86.2 % (37.0-80.0); Platelet Count 206 K/mm3 (142-424); Red Blood Count 4.28 M/mm3 (4.60-6.20); Red Cell Distribution Width 17.5 % (11.5-17.5); White Blood Count 12.2 K/mm3 (4.8-10.8)
[2022-03-16 09:01] LABS: MANUAL DIFFERENTIAL MANUAL DIFFERENTIAL (MANUAL DIFF)
[2022-03-16 09:05] LABS: Chloride 94 mmol/L (98-107); Potassium 4.1 mmoL/L (3.5-5.1); Sodium 130 mmol/L (136-145)
[2022-03-16 09:07] LABS: Alanine Aminotransferase 587 U/L (12-78); Alkaline Phosphatase 97 U/L (38-126); Aspartate Amino Transferase 512 U/L (17-59); Blood Urea Nitrogen 33 mg/dl (9-20); Creatinine Clearance Estimated 55 mL/min (50-200); Estimated Glomerular Filt Rate 32 ml/min (>60); GFR (African American) 39 ML/MIN (>60)
[2022-03-16 09:08] LABS: Albumin Level 3.3 g/dl (3.5-5.0); Albumin/Globulin Ratio 1.1 (1.1-1.8); Anion Gap 14.1 mEq/L (5-15); Calcium 8.1 mg/dl (8.4-10.2); Carbon Dioxide 26 mmol/L (22.0-30.0); Glucose 181 mg/dl (74-100); Magnesium 1.7 mg/dl (1.6-2.3); Phosphorous 2.4 mg/dl (2.5-4.5); Total Protein,Serum 6.3 g/dl (6.3-8.2)
[2022-03-16 09:27] LABS: Eosinophils % 1 % (0-3); Lymphocytes % 11 % (10-50); Monocytes % 3 % (2-9); Neutrophils % 84 % (42-76); Platelet Estimate Normal; RBC Morphology Normal; Total Cells Counted 100
--- NOTE | 2022-03-16 09:35 | EXP.CARD.PN ---
Subjective Subjective Date: 03/16/22 Time: 08:00 Principal diagnosis: Acute systolic heart failure Interval history: S/p AICD placement yesterday. EKG is Vpacing, rate of 94. Blood pressure 91/57. Labs: Sodium 130, creatinine 2.10, potassium 4.1. Bilateral rhonchi noted to lung bases. Remains on Levo and Milrinone drips. Reports wants to go home. Denies chest pain. Hematoma noted to aicd site, no active bleeding. Exam Data for Last 24 hours Vital signs and Labs for Last 24 Hours: Temp Pulse Resp BP Pulse Ox FiO2 97.5 F L 94 H 28 H 91/51 L 94 L 100 03/16/22 08:00 03/16/22 08:00 03/16/22 08:00 03/16/22 08:00 03/16/22 08:00 03/16/22 08:00 Laboratory Results - last 24 hr 03/15/22 14:30: Troponin I 0.20 H 03/15/22 18:40: Vancomycin Trough 18.4 H 03/15/22 20:50: Troponin I 0.46 H 03/16/22 01:10: Vancomycin Peak 39.1 H 03/16/22 08:50: WBC 12.2 H, RBC 4.28 L, Hgb 13.7 L, Hct 41.2 L, MCV 96.2 H, MCH 32.0 H, MCHC 33.2, RDW 17.5, Plt Count 206 D, MPV 9.1, Neut % (Auto) 86.2 H, Lymph % (Auto) 6.0 L, [place] % (Auto) 6.1, Eos % (Auto) 1.3, Baso % (Auto) 0.5, Neut # (Auto) 10.5 H, Lymph # (Auto) 0.7, [place] # (Auto) 0.7, Eos # (Auto) 0.2, Baso # (Auto) 0.1, Total Counted 100, Neutrophils % (Manual) 84 H, Band Neutrophils % 1.0, Lymphocytes % (Manual) 11, Monocytes % (Manual) 3, Eosinophils % (Manual) 1, Platelet Estimate Normal, RBC Morphology Normal 03/16/22 08:50: Sodium 130 L, Potassium 4.1 D, Chloride 94 L, Carbon Dioxide 26, Anion Gap 14.1, BUN 33 H, Creatinine 2.10 H, Estimated Creat Clear 55, Estimated GFR 32 L, Est GFR ( Amer) 39 L, Glucose 181 H, Calcium 8.1 L, Phosphorus 2.4 L, Magnesium 1.7 D, Total Bilirubin 6.0 H, AST 512 H* D, ALT 587 H*, Alkaline Phosphatase 97, Total Protein 6.3, Albumin 3.3 L, Globulin 3.0, Albumin/Globulin Ratio 1.1 I & O for Last 24 hours: Intake & Output 03/13/22 03/14/22 03/15/22 03/16/22 23:59 23:59 23:59 23:59 Intake Total 1682 / 1833 1461 / 1482 2363.009 / 2363.009 658 / 658 Output Total 1280 / 1280 3643 / 4193 2049 / 2049 600 / 600 Balance 402 / 553 -2182 / -2711 313.009 / 313.009 58 / 58 Weight 239 lb 4 oz 235 lb 14.314 oz 235 lb 10.786 oz 233 lb 3.985 oz Microbiology Reports for the Last 24 Hours: Microbiology 03/12/22 14:30 Blood Blood Culture - Preliminary NO GROWTH AFTER 48 HOURS 03/12/22 14:30 Blood Blood Culture - Preliminary NO GROWTH AFTER 48 HOURS Constitutional Constitutional: no acute distress *Routine Respiratory Exam Respiratory: Present rhonchi, diminished air movement and symmetric chest movement *Routine Cardiovascular Exam Cardiovascular: Present RRR, Normal S1 and Normal S2 Comments: vpacing noted *Routine Abdominal Exam Abdominal: Present soft and normoactive bowel sounds; Absent tenderness *Routine Extremities Exam Extremities: Present edema and pallor *Routine Skin Exam Skin: Present intact, dry and warm Detailed Neck Exam: Thyroids Thyroid: Absent bruit Progress Note: A&P Assessment and plan (1) Cardiogenic shock: Status: Acute (2) Atrial flutter: Status: Acute (3) Acute exacerbation of CHF (congestive heart failure): Status: Acute (4) Non-ST elevation (NSTEMI) myocardial infarction: Status: Acute (5) GUIDO (acute kidney injury): Status: Acute (6) Hypokalemia: Status: Acute (7) Community acquired pneumonia: Status: Acute (8) Hyperbilirubinemia: Status: Acute (9) Chronic hypoxemic respiratory failure: Status: Acute (10) Hyperammonemia: Status: Acute (11) Cardiac arrest due to underlying cardiac condition: Status: Acute Assessment and Plan Assessment and Plan for All Diagnoses:: Acute on chronic, HFrEF NYHA IV -Echo from 02/23/2022-dilated left ventricle, severely reduced left ventricular systolic function, estimated ejection fraction 15%, left ventricle is globally hypokinetic, diastolic parameters a
--- NOTE | 2022-03-16 09:43 | EXP.PHA.PN ---
Subjective *Date: 03/16/22 *Time: 09:43 Medical Exam Vital signs and Labs for Last 24 Hours: Vital Signs Temp Pulse Pulse Resp BP Pulse Ox FiO2 03/16/22 08:00 97.5 F L 03/16/22 08:00 94 H 28 H 91/51 L 94 L 100 03/16/22 07:00 108 H 28 H 98/77 L 92 L 100 03/16/22 06:00 110 H 31 H 133/58 L 92 L 100 03/16/22 05:00 111 H 26 H 116/71 90 L 100 03/16/22 06:17 110 H 03/16/22 06:17 108 H 03/16/22 06:17 91 L 03/16/22 05:19 109 H 03/16/22 05:00 102 H 03/15/22 20:10 102 H 03/15/22 23:45 104 H 24 107/63 L 91 L 80 03/15/22 22:45 103 H 26 H 100/67 L 90 L 80 03/15/22 21:45 96 H 24 127/72 96 100 03/15/22 20:45 95 H 24 95/64 L 95 100 03/16/22 04:00 109 H 27 H 93/39 L 89 L 100 03/16/22 03:00 116 H 25 H 106/60 L 90 L 80 03/16/22 01:00 101 H 25 H 101/57 L 91 L 80 03/16/22 02:00 99 H 24 98/70 L 93 L 80 03/16/22 00:00 104 H 27 H 103/62 L 93 L 80 03/15/22 23:00 103 H 28 H 96/60 L 89 L 40 03/16/22 00:00 98.8 F 03/15/22 23:00 98.7 F 03/15/22 23:05 100 H 03/15/22 23:05 102 H 03/15/22 20:00 97.8 F 94 H 22 96/58 L 95 100 03/15/22 22:00 97 H 30 H 97/60 L 96 100 03/15/22 21:00 96 H 26 H 100/64 L 95 100 03/15/22 19:45 93 H 26 H 94/59 L 96 100 03/15/22 19:15 89 22 94/38 L 96 100 03/15/22 18:45 84 22 101/57 L 95 100 03/15/22 18:30 82 22 115/62 94 L 100 03/15/22 19:00 87 22 95/63 L 96 100 03/15/22 18:15 78 23 110/56 L 94 L 100 03/15/22 18:44 82 93 L 03/15/22 18:36 94 L 03/15/22 17:35 92 H 20 111/72 89 L 50 03/15/22 17:20 126 H 20 112/66 83 L 50 03/15/22 17:16 126 H 125 H 20 116/69 82 L 03/15/22 12:00 120 H 03/15/22 14:00 131 H 22 98/67 L 92 L 50 03/15/22 12:00 123 H 91 L 50 03/15/22 13:00 127 H 20 104/62 L 91 L 50 03/15/22 12:00 129 H 22 104/67 L 91 L 50 03/15/22 11:55 97.5 F L 03/15/22 11:00 129 H 22 96/58 L 91 L 50 03/15/22 10:00 128 H 22 96/60 L 91 L 50 Intake and Output 03/15/22 03/16/22 03/16/22 23:59 07:59 15:59 Intake Total 623 / 2363.009 658 / 658 Output Total 600 / 2050 600 / 600 Balance 23 / 313.009 58 / 58 Intake: Intake, Oral Amount 120 / 180 0 / 0 Intake, Total IV Amount 503 / 2183.009 658 / 658 Amiodarone HCl 300 mg In 68 / 568 Dextrose 5 % in Water 100 ml @ 424 mls/hr IV ONCE ONE Rx#: [id number] Cefepime HCl 1 gm In 0.9 % 50 / 50 Sodium Chloride 50 ml @ 100 mls /hr IV Q12H [facility] Rx#:[id number] Milrinone Lactate 20 mg In 0.9 26 / 141 % Sodium Chloride 80 ml @ 0.2 MCG/KG/MIN 6.511 mls/hr IV . [id number] [facility] Rx#:[id number] Norepinephrine Bitartrate 8 mg 151 / 756 In Dextrose 5 % in Water 250 ml @ 2 MCG/MIN 3.87 mls/hr IV . Q24H [facility] Rx#:[id number] Vancomycin/Water For Inj (Peg) 350 / 350 1.75 gm In 350 ml @ 175 mls/hr IV Q24H [facility] Rx#:[id number] Output: Output, Urine Amount 600 / 2050 600 / 600 Other: Number of Unmeasured Voids 0 Weight 105.8 kg Patient Weight 03/16/22 23:59 Weight 105.8 kg Laboratory Results - last 24 hr 03/15/22 14:30: Troponin I 0.20 H 03/15/22 18:40: Vancomycin Trough 18.4 H 03/15/22 20:50: Troponin I 0.46 H 03/16/22 01:10: Vancomycin Peak 39.1 H 03/16/22 08:50: WBC 12.2 H, RBC 4.28 L, Hgb 13.7 L, Hct 41.2 L, MCV 96.2 H, MCH 32.0 H, MCHC 33.2, RDW 17.5, Plt Count 206 D, MPV 9.1, Neut % (Auto) 86.2 H, Lymph % (Auto) 6.0 L, [place] % (Auto) 6.1, Eos % (Auto) 1.3, Baso % (Auto) 0.5, Neut # (Auto) 10.5 H, Lymph # (Auto) 0.7, [place] # (Auto) 0.7, Eos # (Auto) 0.2, Baso # (Auto) 0.1, Total Counted 100, Neutrophils % (Manual) 84 H, Band Neutrophils % 1.0, Lymphocytes % (Manual) 11, Monocytes % (Manual) 3, Eosinophils % (Ma
--- NOTE | 2022-03-16 09:59 | HMH.OTEV ---
OT Inpatient Evaluation Rehab OT IP Evaluation Start: 03/16/22 08:40 Freq: ONCE Status: Active Protocol: Document 03/16/22 09:42 TONYA (Rec: 03/16/22 09:57 TONYA [id number]) Rehab OT IP Assessment Subjective History Mr. Ortiz is a 61-year-old male with past medical history of systolic heart failure (EF 20 to 25% on echo 11/01), chronic hypoxic respiratory failure, CKD, who presented to the ER with worsening shortness of breath and fatigue for the past few weeks. Of note, he had a similar presentation 2 weeks ago. States he has not felt well since getting home. Reports mixed compliance with his diuretic regimen. Also complains of cough mildly productive for yellow sputum. Stable oxygen requirement (2. 5 L). Denies fever, but states that he has been cold and requesting blankets. Denies any vomiting, melena, abdominal pain, chest pain. Has had some intermittent nausea. On initial evaluation in the ER, patient found to be in a flutter with heart rate in the 130s. Labs concerning for mild elevation in troponin, elevation in creatinine from baseline, severely elevated BNP, and low potassium. Patient's chest imaging concerning for volume overload and persistent right middle lobe atelectasis versus airspace density. Initiated on diltiazem drip in the ER with improvement in his heart rate. Medicine consulted for admission and further management. On my interview, patient appears very weak. Reports known history of heart failure , has been trying to get set up at for possible AICD.
--- NOTE | 2022-03-16 10:22 | HMH.PTEV ---
Physical Therapy Evaluation Rehab PT IP Evaluation Start: 03/16/22 08:38 Freq: ONCE Status: Active Protocol: Document 03/16/22 09:45 PHOSAMUEL (Rec: 03/16/22 10:22 PHOSAMUEL [id number]) Subjective/History History History 61 yowm adm to [facility] with A- flutter, PNA, STEMI. Multiple co-morbid conditions including heaqrt failure, prior CVA, CKD. He lives with family, ramp to enter the home, generally is independent with all mobility and ambulation without AD. Suffered cardiac arrest 1 day ago, Now 1 day S/ P pacemaker/ICD placement. Subjective Subjective Pt very lethargic this am, oxygen on via FM at all times. Moderate hematoma noted to lateral side of PM incision area. Rehab PT IP Eval Objective Appearance Patient Behavior Appropriate Patient Orientation Person,Place Difficulty following instructions mild Speech Pattern Clear,Mumbled Ambulation Patient Able to Ambulate No Balance Ability to Arise Unable Sitting Balance Leans or slides in chair Dynamic Sitting Balance Ability Poor Transfers Bed Transfer Ability Maximum x 2 (75% assist) MMT RUE PT MMT ABN Abnormal MMT Grade generally decreased S/P prior CVA Rehab PT IP prob,goals,plan Problems Date of Evaluation: 03/16/22 PT IP Problems Bed Mobility,Transfers,Gait Rehab Potential Rehab Potential Good Plan PT Intervention Plan Bed Mobility,Transfers,Gait, Self care,Therapeutic Exercise PT Plan Frequency BID Duration LOS Discharge Goals Bed Transfer Ability Moderate x 1 (50% assist) Sit to Stand Chair Transfer Ability Maximum x 1 (75% assist) Ambulation Distance (feet) 10 Discharge Plan PT Discharge Plan Pt is currently most appropriate for rehab placement once medically stable. G -code Required No Eval Complexity Eval Charge Codes 28944 - High Complexity PHYSICIAN CERTIFICATION: I certify the specified therapy services for Mele Ortiz are required, authorized, and reviewed every 30 days.
--- NOTE | 2022-03-16 11:03 | ECG_ITS ---
APPROVED REPORT Exam: Resting ECG HR:92 bpm ECG Measurements Heart Rate 92 AXES IL 122 P 37 QRSd 162 QRS 205 QT 454 T -29 QTc 504 Conclusion ELECTRONIC VENTRICULAR PACEMAKER ABNORMAL RHYTHM ECG UNCONFIRMED REPORT Electronically signed by : Rusty Estrada MD 03/17/2022 08:11:58
--- NOTE | 2022-03-16 12:52 | EXP.PHA.CONS ---
Pharmacy Consult Date: 03/16/22 Time: 12:52 Referring provider: DR. HUSSEIN Reason for Consult:: VANCOMYCIN DOSE CHANGE Allergies Allergy/AdvReac Type Severity Reaction Status Date / Time No Known Allergies Allergy Verified 03/12/22 18:21 Home Medications Medication Instructions Recorded Confirmed Type albuterol sulfate 90 mcg/actuation 1 puff inhalation QID PRN 10/31/21 03/12/22 History aerosol inhaler Shortness Of Breath furosemide 40 mg tablet 40 mg PO DAILY Heart failure 10/31/21 03/12/22 History metoprolol succinate 100 mg 100 mg PO DAILY Hypertension 10/31/21 03/12/22 History tablet,extended release 24 hr pantoprazole 40 mg tablet,delayed 40 mg PO DAILY acid reflux 10/31/21 03/12/22 History release clopidogrel 75 mg tablet 75 mg PO DAILY Heart disease 02/22/22 03/12/22 History fluticasone furoate 200 1 inh inhalation BID COPD 02/23/22 03/12/22 History mcg-vilanterol 25 mcg/dose inhalation powder (Breo Ellipta) lisinopril 10 mg tablet 10 mg PO DAILY Hypertension 02/23/22 03/12/22 History alprazolam 1 mg tablet 1 mg PO TID PRN Anxiety #90 tabs 02/24/22 03/12/22 Rx spironolactone 50 mg tablet 50 mg PO BID DIURETIC 03/12/22 03/12/22 History New Prescriptions to Start Prescriptions: Height: 1.75 m Weight: 105.8 kg Laboratory Results:: Laboratory Results - last 24 hr 03/15/22 14:30: Troponin I 0.20 H 03/15/22 18:40: Vancomycin Trough 18.4 H 03/15/22 20:50: Troponin I 0.46 H 03/16/22 01:10: Vancomycin Peak 39.1 H 03/16/22 08:50: WBC 12.2 H, RBC 4.28 L, Hgb 13.7 L, Hct 41.2 L, MCV 96.2 H, MCH 32.0 H, MCHC 33.2, RDW 17.5, Plt Count 206 D, MPV 9.1, Neut % (Auto) 86.2 H, Lymph % (Auto) 6.0 L, [place] % (Auto) 6.1, Eos % (Auto) 1.3, Baso % (Auto) 0.5, Neut # (Auto) 10.5 H, Lymph # (Auto) 0.7, [place] # (Auto) 0.7, Eos # (Auto) 0.2, Baso # (Auto) 0.1, Total Counted 100, Neutrophils % (Manual) 84 H, Band Neutrophils % 1.0, Lymphocytes % (Manual) 11, Monocytes % (Manual) 3, Eosinophils % (Manual) 1, Platelet Estimate Normal, RBC Morphology Normal 03/16/22 08:50: Sodium 130 L, Potassium 4.1 D, Chloride 94 L, Carbon Dioxide 26, Anion Gap 14.1, BUN 33 H, Creatinine 2.10 H, Estimated Creat Clear 55, Estimated GFR 32 L, Est GFR ( Amer) 39 L, Glucose 181 H, Calcium 8.1 L, Phosphorus 2.4 L, Magnesium 1.7 D, Total Bilirubin 6.0 H, AST 512 H* D, ALT 587 H*, Alkaline Phosphatase 97, Total Protein 6.3, Albumin 3.3 L, Globulin 3.0, Albumin/Globulin Ratio 1.1 Medical History: Medical History (Updated 03/15/22 @ 09:22 by Yamil Porter MD) Asthma Congestive heart failure COPD (chronic obstructive pulmonary disease) History of heart attack Assessment and Plan Assessment and plan all Dx Assessment and Plan for all problems:: PATIENT'S VANCOMYCIN PEAK AND TROUGH LEVELS WERE 39.1 MCG/ML AND 18.4 MCG/ML, RESPECTIVELY OVERNIGHT. RECOMMEND REDUCING DOSE TO VANCOMYCIN 1500 MG Q24H AT THIS TIME.
--- NOTE | 2022-03-16 18:54 | EXP.ACUTE.PN ---
Subjective *Date: 03/16/22 *Time: 18:54 Interval history: as needed no issues overnight. This morning having some anxiety. Requesting additional Xanax. No other concerns or complaints Medical Exam Vital signs and Labs for Last 24 Hours: Vital Signs Temp Pulse Pulse Resp BP Pulse Ox FiO2 03/16/22 18:27 94 L 100 03/16/22 18:00 90 24 82/53 L 96 03/16/22 16:00 90 92 L 03/16/22 17:00 89 24 86/52 L 94 L 03/16/22 16:00 90 25 H 86/54 L 91 L 03/16/22 15:00 89 24 81/46 L 90 L 100 03/16/22 16:00 90 03/16/22 12:00 90 03/16/22 08:00 90 03/16/22 14:00 89 24 87/49 L 90 L 100 03/16/22 13:00 88 24 98/54 L 91 L 100 03/16/22 12:00 97.6 F 03/16/22 12:00 89 91 L 03/16/22 08:00 95 H 94 L 03/16/22 12:00 89 24 96/51 L 91 L 100 03/16/22 11:38 89 03/16/22 11:38 89 03/16/22 11:38 91 L 03/16/22 11:00 96 H 26 H 105/60 L 92 L 100 03/16/22 10:00 98 H 28 H 87/55 L 91 L 100 03/16/22 09:00 100 H 26 H 89/49 L 94 L 100 03/16/22 08:00 97.5 F L 03/16/22 08:00 94 H 28 H 91/51 L 94 L 100 03/16/22 07:00 108 H 28 H 98/77 L 92 L 100 03/16/22 06:00 110 H 31 H 133/58 L 92 L 100 03/16/22 05:00 111 H 26 H 116/71 90 L 100 03/16/22 06:17 110 H 03/16/22 06:17 108 H 03/16/22 06:17 91 L 03/16/22 05:19 109 H 03/16/22 05:00 102 H 03/15/22 20:10 102 H 03/15/22 23:45 104 H 24 107/63 L 91 L 80 03/15/22 22:45 103 H 26 H 100/67 L 90 L 80 03/15/22 21:45 96 H 24 127/72 96 100 03/15/22 20:45 95 H 24 95/64 L 95 100 03/16/22 04:00 109 H 27 H 93/39 L 89 L 100 03/16/22 03:00 116 H 25 H 106/60 L 90 L 80 03/16/22 01:00 101 H 25 H 101/57 L 91 L 80 03/16/22 02:00 99 H 24 98/70 L 93 L 80 03/16/22 00:00 104 H 27 H 103/62 L 93 L 80 03/15/22 23:00 103 H 28 H 96/60 L 89 L 40 03/16/22 00:00 98.8 F 03/15/22 23:00 98.7 F 03/15/22 23:05 100 H 03/15/22 23:05 102 H 03/15/22 20:00 97.8 F 94 H 22 96/58 L 95 100 03/15/22 22:00 97 H 30 H 97/60 L 96 100 03/15/22 21:00 96 H 26 H 100/64 L 95 100 03/15/22 19:45 93 H 26 H 94/59 L 96 100 03/15/22 19:15 89 22 94/38 L 96 100 03/15/22 19:00 87 22 95/63 L 96 100 Intake and Output 03/16/22 03/16/22 03/16/22 07:59 15:59 23:59 Intake Total 658 / 867 76 / 867 133 / 867 Output Total 600 / 1350 400 / 1350 350 / 1350 Balance 58 / -483 -324 / -483 -217 / -483 Intake: Intake, Oral Amount 0 / 0 Intake, Total IV Amount 658 / 867 76 / 867 133 / 867 Cefepime HCl 1 gm In 0.9 % 50 / 100 50 / 100 Sodium Chloride 50 ml @ 100 mls /hr IV Q12H [facility] Rx#:[id number] Norepinephrine Bitartrate 8 mg 76 / 159 83 / 159 In Dextrose 5 % in Water 250 ml @ 2 MCG/MIN 3.87 mls/hr IV . Q24H [facility] Rx#:[id number] Vancomycin/Water For Inj (Peg) 350 / 350 1.75 gm In 350 ml @ 175 mls/hr IV Q24H [facility] Rx#:[id number] Output: Output, Urine Amount 600 / 1350 400 / 1350 350 / 1350 Other: Number of Unmeasured Voids 0 Weight 105.8 kg 105.8 kg Patient Weight 03/16/22 23:59 Weight 105.8 kg Laboratory Results - last 24 hr 03/15/22 18:40: Vancomycin Trough 18.4 H 03/15/22 20:50: Troponin I 0.46 H 03/16/22 01:10: Vancomycin Peak 39.1 H 03/16/22 08:50: WBC 12.2 H, RBC 4.28 L, Hgb 13.7 L, Hct 41.2 L, MCV 96.2 H, MCH 32.0 H, MCHC 33.2, RDW 17.5, Plt Count 206 D, MPV 9.1, Neut % (Auto) 86.2 H, Lymph % (Auto) 6.0 L, [place] % (Auto) 6.1, Eos % (Auto) 1.3, Baso % (Auto) 0.5, Neut # (Auto) 10.5 H, Lymph # (Auto) 0.7, [place] # (Auto) 0.7, Eos # (Auto) 0.2, Baso # (Auto) 0.1, Total Counted 100, Neutrophils % (Manual) 84 H, Band Neutrophils % 1.0, Lymphocytes % (Manual) 11, Monocytes % (Manual) 3, Eosinophils % (Manual) 1, Plate
--- NOTE | 2022-03-16 18:55 | PC.NURSE ---
pt has rested t/o most of shift, remains on nonrebreather, milrinone turned off this morning, remains on levo, titrating per Dr. Hernan Porter orders, stated to turn levo down 1 mcg/min every hour, do not go back up unless he is notified
--- NOTE | 2022-03-16 21:27 | PC.NURSE ---
1999-bp 87/53 (66), decreased levo drip to 3mcg/min 2114-bp 87/45 (65), decreased levo drip to 2mcg/min
[2022-03-17] VITALS (37 sets, daily range): BP systolic 70–144; BP diastolic 42–70; PULSE 85–107; RESP 14–28; TEMP 36.4–37.3; O2SAT 84–100
--- NOTE | 2022-03-17 00:40 | PC.NURSE ---
2145-bp 121/42 (80), decreased levo drip to 1mcg/min 2200-bp 97/73 (82), held levo drip at this time
[2022-03-17 07:27] LABS: Basophils % 0.3 % (0.1-2.0); Eosinophils % 0.2 % (0.1-12.0); Hematocrit 42.4 % (42.0-52.0); Hemoglobin 13.3 g/dL (14.1-18.0); Lymphocytes # 0.7 K/mm3 (0.7-4.5); Lymphocytes % 8.1 % (10-50); Mean Corpuscular HGB Conc 31.4 g/dL (31.8-35.4); Mean Corpuscular Hemoglobin 31.5 pg (27.0-31.2); Mean Corpuscular Volume 100.2 fl (80-94); Mean Platelet Volume 9.3 fl (7.4-10.4); Monocytes # 0.7 K/mm3 (0.1-1.0); Monocytes % 7.7 % (1.7-9.3); Neutrophils # 7.7 K/mm3 (1.8-7.8); Neutrophils % 83.7 % (37.0-80.0); Platelet Count 159 K/mm3 (142-424); Red Blood Count 4.24 M/mm3 (4.60-6.20); Red Cell Distribution Width 17.8 % (11.5-17.5); White Blood Count 9.3 K/mm3 (4.8-10.8)
[2022-03-17 07:28] LABS: Chloride 93 mmol/L (98-107); Potassium 4.5 mmoL/L (3.5-5.1); Sodium 131 mmol/L (136-145)
[2022-03-17 07:31] LABS: Alanine Aminotransferase 400 U/L (12-78); Albumin Level 3.4 g/dl (3.5-5.0); Albumin/Globulin Ratio 1.1 (1.1-1.8); Alkaline Phosphatase 95 U/L (38-126); Anion Gap 15.5 mEq/L (5-15); Aspartate Amino Transferase 226 U/L (17-59); Bilirubin,Total 7.1 mg/dl (0.2-1.3); Blood Urea Nitrogen 42 mg/dl (9-20); Calcium 8.7 mg/dl (8.4-10.2); Carbon Dioxide 27 mmol/L (22.0-30.0); Creatinine Clearance Estimated 46 mL/min (50-200); Estimated Glomerular Filt Rate 26 ml/min (>60); GFR (African American) 32 ML/MIN (>60); Globulin 3.2 g/dL (1.3-3.2); Glucose 124 mg/dl (74-100); Phosphorous 3.8 mg/dl (2.5-4.5); Total Protein,Serum 6.6 g/dl (6.3-8.2)
--- NOTE | 2022-03-17 10:29 | P.PCN_ITS ---
[facility] Procedure Note Date: 03/17/22 Time: 10:20 Procedure Note:: Anesthesia consulted for urgent/emergent intubation d/t respiratory distress. Pt on 100% Bipap with O2 saturations 86%. Etomidate 10 mg, Succinylcholine 120 mg IV. DVL x 1 with Pruett 2 blade. Grade 2 view. 7.5 ETT with secured at 22 cm at the lip on the right side. +ETCO2, + bilateral breath sounds. Pt tolerated procedure well.
--- NOTE | 2022-03-17 10:37 | EXP.PHA.PN ---
Subjective *Date: 03/17/22 *Time: 10:37 Medical Exam Vital signs and Labs for Last 24 Hours: Vital Signs Temp Pulse Pulse Resp BP Pulse Ox FiO2 03/17/22 09:59 100 H 03/17/22 09:59 100 H 03/17/22 09:59 84 L 03/17/22 09:00 97.5 F L 03/17/22 08:00 92 H 23 95/51 L 93 L 100 03/17/22 07:00 92 H 23 88/54 L 91 L 100 03/17/22 06:00 92 H 20 89/58 L 100 100 03/17/22 06:02 92 L 100 03/17/22 05:00 93 H 14 88/52 L 90 L 100 03/17/22 04:00 93 H 16 99/53 L 96 100 03/17/22 03:00 91 H 15 86/55 L 96 100 03/17/22 02:00 88 16 83/55 L 95 100 03/17/22 04:00 99.0 F 03/17/22 03:55 92 H 03/17/22 00:00 85 03/16/22 20:00 93 H 03/17/22 00:00 99.0 F 03/17/22 01:00 87 21 77/56 L 93 L 100 03/17/22 00:00 85 20 75/48 L 95 100 03/16/22 23:00 84 20 86/45 L 97 100 03/16/22 22:00 87 18 97/73 L 97 100 03/16/22 21:00 95 H 17 85/49 L 96 100 03/16/22 20:00 97.6 F 93 H 13 87/53 L 95 100 03/16/22 19:00 93 H 24 83/52 L 96 03/16/22 18:27 94 L 100 03/16/22 18:00 90 24 82/53 L 96 03/16/22 16:00 90 92 L 03/16/22 17:00 89 24 86/52 L 94 L 03/16/22 16:00 90 25 H 86/54 L 91 L 03/16/22 15:00 89 24 81/46 L 90 L 100 03/16/22 16:00 90 03/16/22 12:00 90 03/16/22 14:00 89 24 87/49 L 90 L 100 03/16/22 13:00 88 24 98/54 L 91 L 100 03/16/22 12:00 97.6 F 03/16/22 12:00 89 91 L 03/16/22 12:00 89 24 96/51 L 91 L 100 03/16/22 11:38 89 03/16/22 11:38 89 03/16/22 11:38 91 L 03/16/22 11:00 96 H 26 H 105/60 L 92 L 100 Intake and Output 03/16/22 03/17/22 03/17/22 23:59 07:59 15:59 Intake Total 383 / 1117 50 / 50 Output Total 350 / 1350 0 / 0 Balance 33 / -233 50 / 50 Intake: Intake, Total IV Amount 383 / 859 50 / 50 Cefepime HCl 1 gm In 0.9 % 50 / 100 50 / 50 Sodium Chloride 50 ml @ 100 mls /hr IV Q12H [facility] Rx#:[id number] Norepinephrine Bitartrate 8 mg 83 / 159 In Dextrose 5 % in Water 250 ml @ 2 MCG/MIN 3.87 mls/hr IV . Q24H [facility] Rx#:[id number] Vancomycin HCl 1,500 mg In 0.9 250 / 250 % Sodium Chloride 250 ml @ 125 mls/hr IV Q24H [facility] Rx#:[id number] Output: Output, Urine Amount 350 / 1350 0 / 0 Other: Number of Unmeasured Voids 0 0 Laboratory Results - last 24 hr 03/17/22 05:58: WBC 9.3, RBC 4.24 L, Hgb 13.3 L, Hct 42.4, MCV 100.2 H, MCH 31.5 H, MCHC 31.4 L, RDW 17.8 H, Plt Count 159, MPV 9.3, Neut % (Auto) 83.7 H, Lymph % (Auto) 8.1 L, [place] % (Auto) 7.7, Eos % (Auto) 0.2, Baso % (Auto) 0.3, Neut # (Auto) 7.7, Lymph # (Auto) 0.7, [place] # (Auto) 0.7, Eos # (Auto) 0.0, Baso # (Auto) 0.0 03/17/22 05:58: Sodium 131 L, Potassium 4.5, Chloride 93 L, Carbon Dioxide 27, Anion Gap 15.5 H, BUN 42 H D, Creatinine 2.50 H, Estimated Creat Clear 46, Estimated GFR 26 L, Est GFR ( Amer) 32 L, Glucose 124 H D, Calcium 8.7, Phosphorus 3.8 D, Magnesium 2.0 D, Total Bilirubin 7.1 H, AST 226 H D, ALT 400 H*, Alkaline Phosphatase 95, Total Protein 6.6, Albumin 3.4 L, Globulin 3.2, Albumin/Globulin Ratio 1.1 I & O for Labs for Last 24 Hours: Intake & Output 03/14/22 03/15/22 03/16/22 03/17/22 23:59 23:59 23:59 23:59 Intake Total 1461 / 1482 2363.009 / 2363.009 1117 / 1117 50 / 50 Output Total 3643 / 4193 2049 / 2049 1350 / 1350 0 / 0 Balance -2182 / -2711 313.009 / 313.009 -233 / -233 50 / 50 Weight 107 kg 106.9 kg 105.8 kg The patient's infection will respond to the chosen ABx?: Yes (EMPIRIC THERAPY) Is the patient receiving the right drug, dose, and route?: Yes Could a more targeted ABx be ordered?: Yes
--- NOTE | 2022-03-17 10:52 | XR_ITS ---
FINAL REPORT CLINICAL HISTORY: ET tube and NG tube placement COMPARISON: 03/15/2022 FINDINGS: A single view of the chest was obtained. The endotracheal tube is in good position. The nasogastric tube tip is not seen but noted entering the stomach. There is moderate cardiomegaly. There is mild bibasilar atelectasis. There is vascular congestion. IMPRESSION: ET tube in good position. Reviewed, Interpreted and Dictated by Jeffrey Garza MD Transcribed by Allyssa Raymond Authenticated and [facility]
[2022-03-17 11:02] LABS: ABG HCO3 27.8 mmhg (22.0-26.0); ABG Oxygen Saturation 94 % (90-100); ABG PH 7.28 mmol/L (7.35-7.45); ABG PO2 77.4 mmhg (80-100); ABG TCO2 29.7 mmhg (23-27)
--- NOTE | 2022-03-17 11:03 | EXP.CARD.PN ---
Subjective Subjective Date: 03/17/22 Time: 08:00 Principal diagnosis: Acute systolic heart failure Interval history: Patient remained stable throughout the evening off of levo and milrinone. Patient started to decline this morning becoming hypoxic despite repeated attempts at suction resulting in intubation. Patient placed back on milrinone drip. Chest x-ray pending. A.m. labs as follow: Hemoglobin 13.3, sodium 131, potassium 4.5, creatinine 2.5, AST 226, ALT 400. Exam Data for Last 24 hours Vital signs and Labs for Last 24 Hours: Temp Pulse Resp BP Pulse Ox FiO2 97.5 F L 100 H 18 95/51 L 91 L 100 03/17/22 09:00 03/17/22 09:59 03/17/22 10:28 03/17/22 08:00 03/17/22 10:28 03/17/22 10:28 Laboratory Results - last 24 hr 03/17/22 05:58: WBC 9.3, RBC 4.24 L, Hgb 13.3 L, Hct 42.4, MCV 100.2 H, MCH 31.5 H, MCHC 31.4 L, RDW 17.8 H, Plt Count 159, MPV 9.3, Neut % (Auto) 83.7 H, Lymph % (Auto) 8.1 L, [place] % (Auto) 7.7, Eos % (Auto) 0.2, Baso % (Auto) 0.3, Neut # (Auto) 7.7, Lymph # (Auto) 0.7, [place] # (Auto) 0.7, Eos # (Auto) 0.0, Baso # (Auto) 0.0 03/17/22 05:58: Sodium 131 L, Potassium 4.5, Chloride 93 L, Carbon Dioxide 27, Anion Gap 15.5 H, BUN 42 H D, Creatinine 2.50 H, Estimated Creat Clear 46, Estimated GFR 26 L, Est GFR ( Amer) 32 L, Glucose 124 H D, Calcium 8.7, Phosphorus 3.8 D, Magnesium 2.0 D, Total Bilirubin 7.1 H, AST 226 H D, ALT 400 H*, Alkaline Phosphatase 95, Total Protein 6.6, Albumin 3.4 L, Globulin 3.2, Albumin/Globulin Ratio 1.1 I & O for Last 24 hours: Intake & Output 03/14/22 03/15/22 03/16/22 03/17/22 23:59 23:59 23:59 23:59 Intake Total 1461 / 1482 2363.009 / 2363.009 1117 / 1117 50 / 50 Output Total 3643 / 4193 2049 1350 / 1350 0 / 0 Balance -2182 / -2711 313.009 / 313.009 -233 / -233 50 / 50 Weight 235 lb 14.314 oz 235 lb 10.786 oz 233 lb 3.985 oz Microbiology Reports for the Last 24 Hours: Microbiology 03/12/22 14:30 Blood Blood Culture - Preliminary NO GROWTH AFTER 48 HOURS 03/12/22 14:30 Blood Blood Culture - Preliminary NO GROWTH AFTER 48 HOURS Constitutional Constitutional: chronically ill appearing *Routine Respiratory Exam Respiratory: Present rhonchi, wheezes, diminished air movement and symmetric chest movement *Routine Cardiovascular Exam Cardiovascular: Present RRR, Normal S1 and Normal S2 Comments: vpacing noted *Routine Abdominal Exam Abdominal: Present soft and normoactive bowel sounds; Absent tenderness *Routine Extremities Exam Extremities: Present edema and pallor *Routine Skin Exam Skin: Present intact, dry and warm Detailed Neck Exam: Thyroids Thyroid: Absent bruit Progress Note: A&P Assessment and plan (1) Cardiogenic shock: Status: Acute (2) Atrial flutter: Status: Acute (3) Acute exacerbation of CHF (congestive heart failure): Status: Acute (4) Non-ST elevation (NSTEMI) myocardial infarction: Status: Acute (5) GUIDO (acute kidney injury): Status: Acute (6) Hypokalemia: Status: Acute (7) Community acquired pneumonia: Status: Acute (8) Hyperbilirubinemia: Status: Acute (9) Chronic hypoxemic respiratory failure: Status: Acute (10) Hyperammonemia: Status: Acute (11) Cardiac arrest due to underlying cardiac condition: Status: Acute Assessment and Plan Assessment and Plan for All Diagnoses:: Acute on chronic, HFrEF NYHA IV -Echo from 02/23/2022-dilated left ventricle, severely reduced left ventricular systolic function, estimated ejection fraction 15%, left ventricle is globally hypokinetic, diastolic parameters are inconclusive, Doppler evidence of low cardiac output state.? Mildly enlarged right ventricle with normal contractility.? Mild mitral and tricuspid regurg. -Currently blood pressure is too low for HUGH/ARB, diuretics or beta-mello. -Continue milrinone and levo for cardiac support.? VQ scan ne
[2022-03-17 11:06] LABS: Allen's Test acceptable; Oxygen 100 %; PEEP 5; Pressure Support 0; Source Left Radial; Tidal Volume 440; Vent Rate 18
[2022-03-17 11:07] LABS: ABG PCO2 61.1 mmhg (35.0-45.0)
[2022-03-17 12:00] LABS: Microscopic, Urine URINE MICROSCOPIC (MICROSCOPIC)
[2022-03-17 12:05] LABS: Appearance,Urine CLEAR (Clear); Blood, Urine 3+ (Negative); Color,Urine YELLOW (Yellow); Glucose,Urine (UA) Negative (Negative); Ketones,Urine Negative (Negative); Leukocyte Esterase,Urine Negative (Negative); Nitrate,Urine Negative (Negative); PH,Urine 5.5 (5.0-8.5); Protein,Urine 1+ (Negative); Specific Gravity, Urine 1.025 (1.005-1.030); Urobilinogen,Urine 0.2 EU/dl (0.2)
--- NOTE | 2022-03-17 12:13 | CA_ITS ---
APPROVED REPORT EXAM: Comprehensive 2D, Doppler, and color-flow Echocardiogram [employer] Member: PATRICIA Duran, RVS Ht: 5 ft 8 in Wt: 233lbs BSA: 2.18 BP: 000/00 mmHg Indications: Effusion check post Pacer, Intubated, Pneumonia, NSTEMI, CM Echo Enhancing Agent Comments: Small pericardial effusion persent M-Mode Dimensions LVDd 8.28 cm (3.5-5.7) LVDs 7.73 cm (3.5-5.7) EF (Teich) 14.20% FS 6.60% EDV (Teich) 372.10 mL ESV (Teich) 319.20 mL Conclusion 1. Technically difficult and poor study. Studies obtained to evaluate for pericardial effusion. 2. Small circumferential pericardial effusion seen. Electronically signed by : Tutu Iraheta MD 03/18/2022 15:43:51
[2022-03-17 12:18] LABS: Bilirubin,Urine 1+ (Negative)
[2022-03-17 12:19] LABS: Amorphous Sediment,Urine 1+ /lpf; Bacteria,Urine Trace /lpf; Squamous Epithelial Cell,Urine Occasional #/hpf (0-5)
[2022-03-17 12:22] LABS: Fine Granular Casts,Urine Occasional #/lpf (0); RBC,Urine Occasional #/hpf (0-3)
--- NOTE | 2022-03-17 13:13 | EXP.PULM.CON ---
History of Present Illness History of present illness: 61-year-old male history of systolic heart failure EF of 10 to 15%, chronic hypoxic respiratory failure, CKD presented to the ER on 03/12/2022 with worsening shortness of breath and fatigue that has been progressively getting worse for weeks prior to his presentation. Patient on admission needing 2.5 L nasal cannula oxygen supplementation, continue to have worsening respiratory state eventually intubation mechanical ventilatory support this morning and pulmonary was called for further management [facility] Disclaimer: The information contained in this section may have been updated after the patient was seen, as this information can be updated by other users. Medical History (Updated 03/17/22 @ 13:13 by Jose Sanches MD) Asthma Congestive heart failure COPD (chronic obstructive pulmonary disease) History of heart attack On mechanically assisted ventilation Family History Family history of myocardial infarction Social History (Updated 03/12/22 @ 20:02 by Kaylynn Warren RN) Smoking Status: Former smoker alcohol intake: never current occupational status: disabled Travel in the last 8 weeks: None Review of Systems Review of Systems Review of systems:: unable to obtain Review of systems (narrative): Intubated and sedated Pulmonology Exam Inpatient Vital signs and Labs for Last 24 Hours: Temp Pulse Resp BP Pulse Ox FiO2 98.3 F 96 H 22 86/59 L 99 100 03/17/22 11:20 03/17/22 12:00 03/17/22 12:00 03/17/22 12:00 03/17/22 12:00 03/17/22 12:00 Laboratory Results - last 24 hr 03/17/22 05:58: WBC 9.3, RBC 4.24 L, Hgb 13.3 L, Hct 42.4, MCV 100.2 H, MCH 31.5 H, MCHC 31.4 L, RDW 17.8 H, Plt Count 159, MPV 9.3, Neut % (Auto) 83.7 H, Lymph % (Auto) 8.1 L, [place] % (Auto) 7.7, Eos % (Auto) 0.2, Baso % (Auto) 0.3, Neut # (Auto) 7.7, Lymph # (Auto) 0.7, [place] # (Auto) 0.7, Eos # (Auto) 0.0, Baso # (Auto) 0.0 03/17/22 05:58: Sodium 131 L, Potassium 4.5, Chloride 93 L, Carbon Dioxide 27, Anion Gap 15.5 H, BUN 42 H D, Creatinine 2.50 H, Estimated Creat Clear 46, Estimated GFR 26 L, Est GFR ( Amer) 32 L, Glucose 124 H D, Calcium 8.7, Phosphorus 3.8 D, Magnesium 2.0 D, Total Bilirubin 7.1 H, AST 226 H D, ALT 400 H*, Alkaline Phosphatase 95, Total Protein 6.6, Albumin 3.4 L, Globulin 3.2, Albumin/Globulin Ratio 1.1 03/17/22 10:41: Specimen Source Left radial, O2 % 100, ABG pH 7.28 L, ABG pCO2 61.1 H, ABG pO2 77.4 L, ABG HCO3 27.8 H, ABG Total CO2 29.7 H, ABG O2 Saturation 94, ABG Base Excess 1.0, Zhao Test acceptable, Vent Rate 18, Tidal Volume 440, PEEP 5 03/17/22 10:58: Urine Color Yellow, Urine Appearance Clear, Urine pH 5.5, Ur Specific [place] 1.025, Urine Protein 1+, Urine Glucose (UA) Negative, Urine Ketones Negative, Urine Blood 3+, Urine Nitrate Negative, Urine Bilirubin 1+ A, Urine Urobilinogen 0.2, Ur Leukocyte Esterase Negative, Urine RBC Occasional, Urine WBC 3-5, Ur Squamous Epith Cells Occasional, Amorphous Sediment 1+, Urine Bacteria Trace, Fine Granular Casts Occasional I & O for Labs for Last 24 Hours: Intake & Output 03/14/22 03/15/22 03/16/22 03/17/22 23:59 23:59 23:59 23:59 Intake Total 1461 / 1482 2363.009 / 2363.009 1117 / 1117 63 / 63 Output Total 3643 / 4193 2049 / 2049 1350 / 1350 415 / 415 Balance -2182 / -2711 313.009 / 313.009 -233 / -233 -352 / -352 Weight 235 lb 14.314 oz 235 lb 10.786 oz 233 lb 3.985 oz 233 lb 3.985 oz Constitutional: Present no acute distress and severe distress Comment:: Intubated and Sedated Head: Present normocephalic and atraumatic Neck: Present normal inspection and trachea midline Respiratory: Present patient mechanically ventilated, prolonged expiratory phase, respiratory distress, rhonchi and wheezes Cardiac: Present Tachycardia; Absent S1/S2 GI: Present soft; Absent distention or tenderness Skin: Present intact; Absent cyanosis Neuro: Absent alert, aw
[2022-03-17 14:20] LABS: Ammonia 31 umol/L (9-30)
[2022-03-17 14:28] LABS: INR 1.34 (0.9-1.1); Prothrombin Time 14.2 seconds (10.1-12.5)
[2022-03-17 14:29] LABS: Thyroid Stimulating Hormone 1.44 uIU/mL (0.465-4.68)
--- NOTE | 2022-03-17 14:58 | DIET.NUTRFU ---
Patient had to be intubated this morning secondary to respiratory failure. Patient is post pacemaker sx on 03/16 followed by diuretic tx. Clear liquids were started 03/16, now NPO secondary to intubation. If unable to extubation in 24 hours recommend TF to provide nutritional support. No bolus IVF in place at this time, is receiving NaCl with multiple IV medications. Bumex continues last dose 9:38. He received bolus fluids on 03/13, 03/14 and 03/15. Labs reviewed Na 131L (130), BUN 42 (33), Cr 2.5 (2.1), Bilirubin 7.1 (6.0), AST- 226 (512), ALT- 400H (587). will continue to follow up on nutritional support
[2022-03-17 15:53] LABS: ABG Base Excess 1.6 mmol/L (-2.4-2.3); ABG Oxygen Saturation 99 % (90-100); ABG PCO2 48.2 mmhg (35.0-45.0); ABG PH 7.37 mmol/L (7.35-7.45); ABG PO2 143.5 mmhg (80-100); ABG TCO2 28.5 mmhg (23-27); Oxygen 100 %; PEEP 8; Tidal Volume 440; Vent Rate 22
[2022-03-17 15:54] LABS: Allen's Test Patient Unable; Source A LINE
--- NOTE | 2022-03-17 16:37 | PC.NURSE ---
Patient intubated at 1020 this am after desaturation after sitting on side of bed during physical therapy, intubated with 7.5ETT 24@lip, placement confirmed via CXR, NG tube placed at 24, perrla, 1+ edema noted to BUE, 2+ edema noted to BLE, right radial arterial line placed this shift, site cdi, pacemaker site to left chest wall with bruising noted, paced per telemetry, milrinone infusing, sedated with versed and fentanyl, RASS-1, CPOT 0, current vent settings AC mode, FiO2 100%, TV 440, Rate 22, peep 8. Patient has been turned q2h and provided oral care and suctioning. Bed in lowest position with call light in reach.
--- NOTE | 2022-03-17 19:04 | EXP.ACUTE.PN ---
Subjective *Date: 03/17/22 *Time: 19:04 Interval history: Somnolent this morning. Intubated due to acute hypoxic respiratory failure Medical Exam Vital signs and Labs for Last 24 Hours: Vital Signs Temp Pulse Pulse Resp BP BP Pulse Ox 03/17/22 18:23 100 H 22 92/56 L 94 L 03/17/22 18:13 100 H 03/17/22 18:13 101 H 03/17/22 18:13 22 95 03/17/22 18:00 100 H 22 90/54 L 96 03/17/22 18:00 03/17/22 17:00 98 H 22 123/70 100 03/17/22 16:00 100 H 03/17/22 16:00 98 H 99 03/17/22 16:00 98 H 22 105/64 L 100 03/17/22 14:00 95 H 22 98/62 L 99 03/17/22 14:00 03/17/22 12:00 95 H 98 03/17/22 15:00 98 H 22 100/64 L 97 03/17/22 13:00 97 H 20 95/62 L 97 03/17/22 12:00 100 H 03/17/22 12:00 99.2 F 03/17/22 14:07 85 03/17/22 14:07 96 H 03/17/22 08:00 96 H 91 L 03/17/22 12:00 96 H 22 86/59 L 99 03/17/22 11:05 89 03/17/22 11:05 88 03/17/22 11:00 89 03/17/22 11:00 89 03/17/22 11:20 98.3 F 96/64 L 03/17/22 11:30 95 H 20 78/54 L 95 03/17/22 11:00 93 H 20 87/62 L 95 03/17/22 10:30 92 H 20 96/66 L 94 L 03/17/22 10:00 100 H 28 H 144/57 H 87 L 03/17/22 09:00 95 H 26 H 101/70 L 91 L 03/17/22 11:27 03/17/22 10:28 18 91 L 03/17/22 09:59 100 H 03/17/22 09:59 100 H 03/17/22 09:59 84 L 03/17/22 09:00 97.5 F L 03/17/22 08:00 92 H 23 95/51 L 93 L 03/17/22 07:00 92 H 23 88/54 L 91 L 03/17/22 06:00 92 H 20 89/58 L 100 03/17/22 06:02 92 L 03/17/22 05:00 93 H 14 88/52 L 90 L 03/17/22 04:00 93 H 16 99/53 L 96 03/17/22 03:00 91 H 15 86/55 L 96 03/17/22 02:00 88 16 83/55 L 95 03/17/22 04:00 99.0 F 03/17/22 03:55 92 H 03/17/22 00:00 85 03/16/22 20:00 93 H 03/17/22 00:00 99.0 F 03/17/22 01:00 87 21 77/56 L 93 L 03/17/22 00:00 85 20 75/48 L 95 03/16/22 23:00 84 20 86/45 L 97 03/16/22 22:00 87 18 97/73 L 97 03/16/22 21:00 95 H 17 85/49 L 96 03/16/22 20:00 97.6 F 93 H 13 87/53 L 95 FiO2 03/17/22 18:23 100 03/17/22 18:13 03/17/22 18:13 03/17/22 18:13 75 03/17/22 18:00 100 03/17/22 18:00 100 03/17/22 17:00 100 03/17/22 16:00 03/17/22 16:00 100 03/17/22 16:00 100 03/17/22 14:00 100 03/17/22 14:00 100 03/17/22 12:00 100 03/17/22 15:00 100 03/17/22 13:00 100 03/17/22 12:00 03/17/22 12:00 03/17/22 14:07 03/17/22 14:07 03/17/22 08:00 100 03/17/22 12:00 100 03/17/22 11:05 03/17/22 11:05 03/17/22 11:00 03/17/22 11:00 03/17/22 11:20 03/17/22 11:30 03/17/22 11:00 03/17/22 10:30 03/17/22 10:00 03/17/22 09:00 03/17/22 11:27 03/17/22 10:28 03/17/22 09:59 03/17/22 09:59 03/17/22 09:59 03/17/22 09:00 03/17/22 08:00 03/17/22 07:00 03/17/22 06:00 03/17/22 06:02 03/17/22 05:00 03/17/22 04:00 03/17/22 03:00 03/17/22 02:00 03/17/22 04:00 03/17/22 03:55 03/17/22 00:00 03/16/22 20:00 03/17/22 00:00 03/17/22 01:00 03/17/22 00:00 03/16/22 23:00 03/16/22 22:00 03/16/22 21:00 03/16/22 20:00 100 Intake and Output 03/17/22 03/17/22 03/17/22 07:59 15:59 23:59 Intake Total 50 / 243 59 / 243 134 / 243 Output Total 0 940 610 / 940 330 / 940 Balance 50 / -697 -551 / -697 -196 / -697 Intake: Intake, Total IV Amount 50 / 243 59 / 243 134 / 243 Cefepime HCl 1 gm In 0.9 % 50 / 100 50 / 100 Sodium Chloride 50 ml @ 100 mls /hr IV Q12H NICOLAS Rx#:[id number] Fentanyl Citrate/Pf 1,000 mcg In 0.9 % Sodium Chloride 80 ml @ 12.5 MCG/HR 1.25 mls/hr IV . Q24H NICOLAS Rx#:[id number] Mid
--- NOTE | 2022-03-17 21:33 | PC.NURSE ---
Addendum entered by Shalini Bueno RN 03/17/22 21:34: DRIP STARTED AT 4MCG/MIN Original Note: NOTIFIED [place] THAT PT'S ARTERIAL BP WAS 60'S OVER 40'S. MAP IN THE UPPER 40'S. STATED TO START LEVO. TURKEY CLEANER AT BEDSIDE TO ASSESS PT.
--- NOTE | 2022-03-17 22:09 | PC.NURSE ---
PT RESTLESS AND ATTEMPTING TO PULL AT TUBES. FENTENYL DRIP INCREASED TO 30MCG/HR.
--- NOTE | 2022-03-17 22:50 | PC.NURSE ---
notified TICO Boyd and MD Porter of pt's intermittent rhythm changes and that printed strips for MD review, no new orders at this time
--- NOTE | 2022-03-17 22:51 | PC.NURSE ---
bp 60/40's, re-zeroed arterial line, bp still 60's/40's increased levophed drip to 10mcg/min
[2022-03-18] VITALS (27 sets, daily range): BP systolic 71–117; BP diastolic 50–81; PULSE 90–154; RESP 18–23; TEMP 36.7–37.5; O2SAT 92–95; BMI 35.9
--- NOTE | 2022-03-18 05:40 | PC.NURSE ---
Pt remains essentially unchanged since this RN took over care at 0115. Remains intubated and sedated. Sedation remains the same as at beginning of shift: Versed 0.1mcg/kg/min, and Fentanyl 30 mcg/hr. Pt was a tad restless around 0200 but has since rested well. Responds to painful stimuli. Pt FiO2 has been decreased by RT this shift and is now at 60%, saturations stable >90%. BP remains with a map between 60-70 in both the ART Line and Manual cuff, supported by Levophed at 14mcg/min. Remains on Milrinone gtt @ 0.2 mcg/kg/min. HR remains in the 90-100's and paced. Pt has had several runs of vtach. and Hospitalist aware. Pt has not tolerated being turned this shift as reported by previous RN. This RN attempted to turn patient and his BP dropped significantly. Repositioning patients legs and arms to help with pressure points and edema. Right arm is more edematous than left, and is starting to weep clear fluid. Peripheral IV's in RAC and R hand removed, and 2 new IVs started to right hand. R arm and hand elevated from the elbow down on pillows. Voiding yellow urine per catheter, adequate urine output. No bm this shift. No other changes, will continue to monitor.
--- NOTE | 2022-03-18 05:52 | PC.NURSE ---
Addendum entered by Valentina Esparza RN 03/18/22 06:28: Attempted to obtain blood to send to lab, art line is not drawing at this time. Accurate readings noted. Original Note: Blood obtained via art line and sent to lab. Transducer zeroed out afterwards. Return to baseline pleth and readings noted.
--- NOTE | 2022-03-18 06:28 | PC.NURSE ---
0620 - notified Dr. Karri Porter that patients HR significantly increased, and pacemaker was not capturing. HR sustaining in the 140-160's at this time. MD stated to give Amiodarone 150mg IVP over 10 minutes, and then start patient on an Amiodarone drip. Orders written down, repeated, and verified and faxed to pharmacy. shift supervisor film processing notified to obtain medication from another unit. Pt updated on status and plan of care at this time.
--- NOTE | 2022-03-18 06:30 | PC.NURSE ---
Hospitalist and Dr. Porter also notified that ART line will not draw at this time, but does have a good pleth/reading that coincides with BP cuff readings.
--- NOTE | 2022-03-18 06:36 | PC.NURSE ---
Amiodarone bolus started at this time. Mixed and verified with Nixon Kinney RN
--- NOTE | 2022-03-18 06:54 | PC.NURSE ---
Amiodarone gtt started at 33.3ml/hr at this time
[2022-03-18 08:02] LABS: ABG Base Excess 0.8 mmol/L (-2.4-2.3); ABG HCO3 25.8 mmhg (22.0-26.0); ABG Oxygen Saturation 97 % (90-100); ABG PCO2 44.1 mmhg (35.0-45.0); ABG PH 7.39 mmol/L (7.35-7.45); ABG PO2 84.5 mmhg (80-100); ABG TCO2 27.2 mmhg (23-27)
[2022-03-18 08:03] LABS: Allen's Test Patient Unable; Oxygen 60 %; PEEP 8; Source Right Radial; Tidal Volume 440; Vent Rate 22
--- NOTE | 2022-03-18 09:21 | EXP.CARD.PN ---
Subjective Subjective Date: 03/18/22 Time: 08:00 Principal diagnosis: Acute systolic heart failure Interval history: Patient remains intubated. afib/flutter rvr rate of 140s present. Currently on amio, fentanyl, milrinone, levo, and Versed. A.m. labs reviewed. creatinine 2.10, sodium 133, potassium 4.1. Family at bedside. Dr. Porter plans to cardiovert at bedside through his AICD. -balance of 1185 noted. Exam Data for Last 24 hours Vital signs and Labs for Last 24 Hours: Temp Pulse Resp BP Pulse Ox FiO2 98.1 F 119 H 22 110/81 95 60 03/18/22 04:00 03/18/22 09:00 03/18/22 09:00 03/18/22 09:00 03/18/22 09:00 03/18/22 09:00 Laboratory Results - last 24 hr 03/17/22 05:58: TSH 1.44 03/17/22 10:41: Specimen Source Left radial, O2 % 100, ABG pH 7.28 L, ABG pCO2 61.1 H, ABG pO2 77.4 L, ABG HCO3 27.8 H, ABG Total CO2 29.7 H, ABG O2 Saturation 94, ABG Base Excess 1.0, Zhao Test acceptable, Vent Rate 18, Tidal Volume 440, PEEP 5 03/17/22 10:58: Urine Color Yellow, Urine Appearance Clear, Urine pH 5.5, Ur Specific [place] 1.025, Urine Protein 1+, Urine Glucose (UA) Negative, Urine Ketones Negative, Urine Blood 3+, Urine Nitrate Negative, Urine Bilirubin 1+ A, Urine Urobilinogen 0.2, Ur Leukocyte Esterase Negative, Urine RBC Occasional, Urine WBC 3-5, Ur Squamous Epith Cells Occasional, Amorphous Sediment 1+, Urine Bacteria Trace, Fine Granular Casts Occasional 03/17/22 14:01: PT 14.2 H, INR 1.34 H 03/17/22 14:01: Ammonia 31 H 03/17/22 16:00: Specimen Source A line, O2 % 100, ABG pH 7.37, ABG pCO2 48.2 H, ABG pO2 143.5 H, ABG HCO3 27.0 H, ABG Total CO2 28.5 H, ABG O2 Saturation 99, ABG Base Excess 1.6, Zhao Test Patient unable, Vent Rate 22, Tidal Volume 440, PEEP 8 03/18/22 07:39: Specimen Source Right radial, O2 % 60, ABG pH 7.39, ABG pCO2 44.1, ABG pO2 84.5, ABG HCO3 25.8, ABG Total CO2 27.2 H, ABG O2 Saturation 97, ABG Base Excess 0.8, Zhao Test Patient unable, Vent Rate 22, Tidal Volume 440, PEEP 8 I & O for Last 24 hours: Intake & Output 03/15/22 03/16/22 03/17/22 03/18/22 23:59 23:59 23:59 23:59 Intake Total 2363.009 / 2363.009 1117 / 1117 243 / 243 702 / 702 Output Total 2049 / 2049 1350 / 1350 1220 / 1445 860 / 860 Balance 313.009 / 313.009 -233 / -233 -977 / -1202 -158 / -158 Weight 235 lb 10.786 oz 233 lb 3.985 oz 233 lb 3.985 oz 242 lb 12.8 oz Microbiology Reports for the Last 24 Hours: Microbiology 03/17/22 10:30 Sputum - Endotracheal Tube Aspirate Gram Stain - Final 03/12/22 14:30 Blood Blood Culture - Final NO GROWTH AFTER 5 DAYS 03/12/22 14:30 Blood Blood Culture - Final NO GROWTH AFTER 5 DAYS Progress Note: A&P Assessment and plan (1) Cardiogenic shock: Status: Acute (2) Atrial flutter: Status: Acute (3) Acute exacerbation of CHF (congestive heart failure): Status: Acute (4) Non-ST elevation (NSTEMI) myocardial infarction: Status: Acute (5) GUIDO (acute kidney injury): Status: Acute (6) Hypokalemia: Status: Acute (7) Community acquired pneumonia: Status: Acute (8) Hyperbilirubinemia: Status: Acute (9) Chronic hypoxemic respiratory failure: Status: Acute (10) Hyperammonemia: Status: Acute (11) Cardiac arrest due to underlying cardiac condition: Status: Acute Assessment and Plan Assessment and Plan for All Diagnoses:: Acute on chronic, HFrEF NYHA IV -Echo from 02/23/2022-dilated left ventricle, severely reduced left ventricular systolic function, estimated ejection fraction 15%, left ventricle is globally hypokinetic, diastolic parameters are inconclusive, Doppler evidence of low cardiac output state.? Mildly enlarged right ventricle with normal contractility.? Mild mitral and tricuspid regurg. -Currently blood pressure is too low for HUGH/ARB, diuretics or beta-mello. -Continue milrinone and levo for cardiac support.? VQ scan negative for PE -Plac
--- NOTE | 2022-03-18 09:33 | CA_ITS ---
FINAL REPORT CLINICAL HISTORY: Bilateral upper extremity edema and weeping fluid COMPARISON: None FINDINGS: Color Doppler, duplex Doppler and compression sonography of the bilateral upper extremity venous system was performed. Left upper extremity is negative for thrombus. There is complete thrombosis of the distal portion of the right cephalic vein. The deep veins are patent. The central veins are patent. IMPRESSION: Right cephalic vein thrombus. Left upper extremity negative for thrombus. Reviewed, Interpreted and Dictated by Jeffrey Garza MD Transcribed by Rachel Flores Authenticated and . [facility]
--- NOTE | 2022-03-18 09:34 | EXP.PULM.PN ---
Subjective *Date: 03/18/22 *Time: 10:46 Interval history: No acute respiratory vents overnight. Pulmonology Exam Inpatient Vital signs and Labs for Last 24 Hours: Temp Pulse Resp BP Pulse Ox FiO2 98.1 F 119 H 22 110/81 95 60 03/18/22 04:00 03/18/22 09:00 03/18/22 09:00 03/18/22 09:00 03/18/22 09:00 03/18/22 09:00 Laboratory Results - last 24 hr 03/17/22 05:58: TSH 1.44 03/17/22 10:41: Specimen Source Left radial, O2 % 100, ABG pH 7.28 L, ABG pCO2 61.1 H, ABG pO2 77.4 L, ABG HCO3 27.8 H, ABG Total CO2 29.7 H, ABG O2 Saturation 94, ABG Base Excess 1.0, Zhao Test acceptable, Vent Rate 18, Tidal Volume 440, PEEP 5 03/17/22 10:58: Urine Color Yellow, Urine Appearance Clear, Urine pH 5.5, Ur Specific [place] 1.025, Urine Protein 1+, Urine Glucose (UA) Negative, Urine Ketones Negative, Urine Blood 3+, Urine Nitrate Negative, Urine Bilirubin 1+ A, Urine Urobilinogen 0.2, Ur Leukocyte Esterase Negative, Urine RBC Occasional, Urine WBC 3-5, Ur Squamous Epith Cells Occasional, Amorphous Sediment 1+, Urine Bacteria Trace, Fine Granular Casts Occasional 03/17/22 14:01: PT 14.2 H, INR 1.34 H 03/17/22 14:01: Ammonia 31 H 03/17/22 16:00: Specimen Source A line, O2 % 100, ABG pH 7.37, ABG pCO2 48.2 H, ABG pO2 143.5 H, ABG HCO3 27.0 H, ABG Total CO2 28.5 H, ABG O2 Saturation 99, ABG Base Excess 1.6, Zhao Test Patient unable, Vent Rate 22, Tidal Volume 440, PEEP 8 03/18/22 07:39: Specimen Source Right radial, O2 % 60, ABG pH 7.39, ABG pCO2 44.1, ABG pO2 84.5, ABG HCO3 25.8, ABG Total CO2 27.2 H, ABG O2 Saturation 97, ABG Base Excess 0.8, Zhao Test Patient unable, Vent Rate 22, Tidal Volume 440, PEEP 8 I & O for Labs for Last 24 Hours: Intake & Output 03/15/22 03/16/22 03/17/22 03/18/22 23:59 23:59 23:59 23:59 Intake Total 2363.009 / 2363.009 1117 / 1117 243 / 243 702 / 702 Output Total 2049 / 2049 1350 / 1350 1220 / 1445 860 / 860 Balance 313.009 / 313.009 -233 / -233 -977 / -1202 -158 / -158 Weight 235 lb 10.786 oz 233 lb 3.985 oz 233 lb 3.985 oz 242 lb 12.8 oz Microbiology Reports for the Last 24 Hours: Microbiology 03/17/22 10:30 Sputum - Endotracheal Tube Aspirate Gram Stain - Final 03/12/22 14:30 Blood Blood Culture - Final NO GROWTH AFTER 5 DAYS 03/12/22 14:30 Blood Blood Culture - Final NO GROWTH AFTER 5 DAYS Constitutional: Present no acute distress and severe distress Comment:: Intubated and Sedated Head: Present normocephalic and atraumatic Neck: Present normal inspection and trachea midline Respiratory: Present patient mechanically ventilated, prolonged expiratory phase, respiratory distress, rhonchi and crackles; Absent wheezes Cardiac: Present Tachycardia; Absent S1/S2 GI: Present soft; Absent distention or tenderness Skin: Present intact; Absent cyanosis Neuro: Absent alert, awake or oriented x 3 Comment:: Intubated and sedated Extremities: Present normal inspection and edema; Absent clubbing or cyanosis Psychiatric: Present unable to assess Assessment and Plan *Assessment and plan (1) Acute respiratory failure with hypoxia: Status: Acute Category: Medical Code(s): J96.01 - Acute respiratory failure with hypoxia (2) On mechanically assisted ventilation: Status: Acute Category: Medical Code(s): Z99.11 - Dependence on respirator [ventilator] status Plan Patient intubated and sedated. Much of the history is obtained from chart review. 61-year-old male history of systolic heart failure EF of 10 to 15%, chronic hypoxic respiratory failure, CKD presented to the ER on 03/12/2022 with worsening shortness of breath and fatigue that has been progressively getting worse for weeks prior to his presentation. Patient on admission needing 2.5 L nasal cannula oxygen supplementation. His D-dimer was elevated on admission followed by a lower extremity venous Doppler and VQ scan that resulted negative for DVT and PE. T
--- NOTE | 2022-03-18 09:35 | XR_ITS ---
FINAL REPORT CLINICAL HISTORY: Intubation COMPARISON: One day prior FINDINGS: ET tube is in good position. Pacemaker and NG tube are in place. The heart size is normal. The mediastinum is normal. There is improved left lower lobe atelectasis. There is a small right pleural effusion. There is no pneumothorax. There is no osseous abnormality. IMPRESSION: ET tube in good position. Small right pleural effusion. Reviewed, Interpreted and Dictated by Jeffrey Garza MD Transcribed by Rachel Flores Authenticated and [facility]
[2022-03-18 09:56] LABS: Basophils # 0.1 K/mm3 (0-0.2); Basophils % 0.7 % (0.1-2.0); Eosinophils # 0.2 K/mm3 (0.0-0.4); Eosinophils % 1.6 % (0.1-12.0); Hematocrit 41.6 % (42.0-52.0); Hemoglobin 13.2 g/dL (14.1-18.0); Lymphocytes # 0.8 K/mm3 (0.7-4.5); Lymphocytes % 7.7 % (10-50); Mean Corpuscular HGB Conc 31.8 g/dL (31.8-35.4); Mean Corpuscular Volume 100.7 fl (80-94); Mean Platelet Volume 10.6 fl (7.4-10.4); Monocytes # 0.7 K/mm3 (0.1-1.0); Monocytes % 6.6 % (1.7-9.3); Neutrophils # 8.3 K/mm3 (1.8-7.8); Neutrophils % 83.4 % (37.0-80.0); Platelet Count 136 K/mm3 (142-424); Red Blood Count 4.13 M/mm3 (4.60-6.20); Red Cell Distribution Width 18.2 % (11.5-17.5); White Blood Count 9.9 K/mm3 (4.8-10.8)
[2022-03-18 10:04] LABS: Chloride 96 mmol/L (98-107); Potassium 4.1 mmoL/L (3.5-5.1); Sodium 133 mmol/L (136-145)
[2022-03-18 10:05] LABS: Magnesium 1.9 mg/dl (1.6-2.3)
[2022-03-18 10:07] LABS: Alanine Aminotransferase 226 U/L (12-78); Albumin/Globulin Ratio 0.9 (1.1-1.8); Alkaline Phosphatase 87 U/L (38-126); Anion Gap 13.1 mEq/L (5-15); Aspartate Amino Transferase 104 U/L (17-59); Bilirubin,Total 9.5 mg/dl (0.2-1.3); Blood Urea Nitrogen 44 mg/dl (9-20); Carbon Dioxide 28 mmol/L (22.0-30.0); Creatinine Clearance Estimated 58 mL/min (50-200); Estimated Glomerular Filt Rate 32 ml/min (>60); GFR (African American) 39 ML/MIN (>60); Globulin 3.3 g/dL (1.3-3.2); Phosphorous 2.5 mg/dl (2.5-4.5); Total Protein,Serum 6.3 g/dl (6.3-8.2)
[2022-03-18 10:08] LABS: Calcium 8.4 mg/dl (8.4-10.2); Glucose 145 mg/dl (74-100)
--- NOTE | 2022-03-18 15:46 | DIET.NUTRFU ---
patient still intubated,had to have Cardiogenic shock this AM. Also looking to transfer out to receive further tx. If does not transfer recommend start TF, pulomcare at 20ml/hr with goal rate of 60ml/hr ATC= 1440ml/[id number] protein and 1130ml free water with flush adjusted based on IVF. Will continue to follow
--- NOTE | 2022-03-18 15:55 | PC.NURSE ---
contacted Barbara Porter at this time to ask about amio gtt, stated that as long as patient is here to leave the amio gtt infusing at 0.5 mg/min, also notified him of right distal cephalic thrombus, stated to keep giving the heparin that is on MAY, 10,000 units sub q BID
--- NOTE | 2022-03-18 16:37 | PC.NURSE ---
per Harpreet in pharmacy, cefepime can be ran with milrinone
--- NOTE | 2022-03-18 18:19 | PC.NURSE ---
pt does not tolerate being on left side, has remained on right side and supine t/o shift, vent settings FiO2 60, RR 22, TV 440, Peep 8, O2 sats have remained 93 to 95%, HR has stayed at 93-99 since bedside procedure this morning, SBP 86-117, repositioned to try to improve ART line readings, ART line remains inconsistent in comparison to cuff, edema noted to right hand, RUE and BLE, pace remains in place with good UOP
--- NOTE | 2022-03-18 18:38 | PC.NURSE ---
report called to [facility] at this time, report given to DELIA Abarca
--- NOTE | 2022-03-18 18:51 | EXP.DC.SUM ---
General Admission date:: 03/12/22 HPI HPI HPI: Mr. Ortiz is a 61-year-old male with past medical history of systolic heart failure (EF 20 to 25% on echo 11/01), chronic hypoxic respiratory failure, CKD, who presented to the ER with worsening shortness of breath and fatigue for the past few weeks. Of note, he had a similar presentation 2 weeks ago. States he has not felt well since getting home. Reports mixed compliance with his diuretic regimen. Also complains of cough mildly productive for yellow sputum. Stable oxygen requirement (2.5 L). Denies fever, but states that he has been cold and requesting blankets. Denies any vomiting, melena, abdominal pain, chest pain. Has had some intermittent nausea. On initial evaluation in the ER, patient found to be in a flutter with heart rate in the 130s. Labs concerning for mild elevation in troponin, elevation in creatinine from baseline, severely elevated BNP, and low potassium. Patient's chest imaging concerning for volume overload and persistent right middle lobe atelectasis versus airspace density. Initiated on diltiazem drip in the ER with improvement in his heart rate. Medicine consulted for admission and further management. On my interview, patient appears very weak. Reports known history of heart failure, has been trying to get set up at for possible AICD. Has not been comfortable with having the device placed previously. Knows that he has severe heart failure. Alert and interactive. Cardiac history: Reports previous stent placement and intervention by Dr. Porter in [place]. Known LAD disease. Previously recommended CABG, patient declined to pursue. In need of AICD/pacemaker, has deferred for several years; previously wore a LifeVest for 2 years per 's report Echo from 02/23/2022 Conclusion 1.? Technically very difficult study, Definity contrast was utilized to delineate the endocardial surfaces. 2.? Dilated left ventricle, severely this left ventricular systolic function, estimated ejection fraction 15%, left ventricle is globally hypokinetic, diastolic parameters are inconclusive, Doppler evidence of low cardiac output state. 3.? Mildly enlarged right ventricle with normal contractility. 4.? Mild mitral and tricuspid regurgitation. 5.? No significant pericardial effusion noted. 6.? Inferior vena cava is poorly visualized. Hospital Course Hospital Course Hospital Course: 61-year-old man history of ischemic cardiomyopathy and systolic heart failure ejection fraction 10 to 15%, chronic hypoxic respiratory failure, chronic kidney disease presenting to the emergency department with shortness of breath and fatigue due to acute decompensation of systolic heart failure and A. fib RVR and bacterial pneumonia. Initially on diltiazem and ELIJAH cardioversion was performed to normal sinus rhythm. Patient received recent cardiac resynchronization therapy and ICD due to longstanding ischemic cardiomyopathy. Minimal improvement in ejection fraction and patient progressively became more tachycardic and hypotensive. Recurrence of atrial fibrillation requiring defibrillation. Worsening hypotension requiring norepinephrine and milrinone. Intubated due to acute hypoxic respiratory failure. Transfer to [facility] for evaluation of left ventricular assist device. Current medications on discharge: Pneumonia-vancomycin, cefepime Cardiogenic shock: Milrinone, norepinephrine, Bumex Atrial fibrillation: Amiodarone Sedation: Fentanyl, Versed Exam Data for Last 24 hours Vital signs and Labs for Last 24 Hours: Temp Pulse Resp BP Pulse Ox FiO2 99.3 F 94 H 22 87/50 L 93 L 60 03/18/22 16:00 03/18/22 18:00 03/18/22 18:00 03/18/22 18:00 03/18/22 18:00 03/18/22 17:54 Laboratory Results - last 24 hr 03/18/22 07:39: Specimen Source Right radial, O2 % 60, ABG pH 7.39, ABG pCO2 44.1, ABG pO2 84.5, ABG HCO3 25.8, ABG Total CO2 27.2 H, ABG O2 Saturation 97, ABG Base Exce
--- NOTE | 2022-03-18 19:30 | PC.NURSE ---
[employer] called at this time
--- NOTE | 2022-03-18 20:53 | PC.NURSE ---
Pt left the floor via stretcher @ 2053 with flight team.
--- NOTE | 2022-03-18 20:56 | PC.NURSE ---
Pt left with air transport @ 2053.
== END 2022-03-18 20:54 | disposition short-term general hospital (02) | DRG 226 ==
LOC: ER 16:03 → 2ND 03-13 00:48
PROVIDERS: Internal Medicine; Internal Medicine Pulmonary Disease; Nurse Practitioner Family; Admitting Provider Internal Medicine Adolescent Medicine; Emergency Provider Emergency Medicine; PCP Internal Medicine Adolescent Medicine; Visit Provider Student in an Organized Health Care Education/Training Program
PROC: 5A2204Z Restoration of Cardiac Rhythm, Single (ICD-10-PCS; principal; 2022-03-13 14:35)
PROC: 0JH609Z Insertion of Cardiac Resynchronization Defibrillator Pulse Generator into Chest Subcutaneous Tissue and Fascia, Open Approach (ICD-10-PCS; CPT 33249; principal; 2022-03-15 07:30)
DX: I48.92 Unspecified atrial flutter (principal); I21.4 Non-ST elevation (NSTEMI) myocardial infarction; I50.23 Acute on chronic systolic (congestive) heart failure; J18.9 Pneumonia, unspecified organism; R57.0 Cardiogenic shock; J15.9 Unspecified bacterial pneumonia; J96.01 Acute respiratory failure with hypoxia; N17.9 Acute kidney failure, unspecified; J96.11 Chronic respiratory failure with hypoxia; J44.0 Chronic obstructive pulmonary disease with (acute) lower respiratory infection; E87.6 Hypokalemia; I25.2 Old myocardial infarction; F41.1 Generalized anxiety disorder; E66.9 Obesity, unspecified; Z68.36 Body mass index [BMI] 36.0-36.9, adult; E80.6 Other disorders of bilirubin metabolism; Z95.5 Presence of coronary angioplasty implant and graft; I25.10 Atherosclerotic heart disease of native coronary artery without angina pectoris; I25.5 Ischemic cardiomyopathy; I46.8 Cardiac arrest due to other underlying condition; N18.9 Chronic kidney disease, unspecified; F41.9 Anxiety disorder, unspecified
CPT/HCPCS: 31500; 94002; 33249; 33225; 36415; 71045; 71046; 78582; 80048; 80053; 80202; 81001; 82140; 82803; 83605; 83735; 83880; 84100; 84443; 84484; 85007; 85025; 85378; 85610; 86850; 87040; 87070; 87205; 92960; 93005; 93308; 93312; 93970; 94003; 94640; 94760; 94761; 97163; 97165; 97530; 99152; 99291; A9540; A9567; C1769; C1882; C1895; C1898; C1900; C9803; J0282; J0692; J1610; J2260; J2405; J2704; J3370; J7060; Q9967; U0003; U0005